=== PATIENT | male | born 1965 | race Caucasian/White ===

== ENCOUNTER 2017-07-24 20:07 | Emergency (ER) | payer MEDICARE, MEDICAID ==
[2017-07-24] MEDS ORDERED: SODIUM CHLORIDE 0.9% 1000ML 1,000 ML IVS ONE (20:18)
[2017-07-24] MEDS ORDERED: IBUPROFEN 200 MG TAB PO ONE (20:18)
[2017-07-24 20:59] VITALS: O2SAT 99
--- NOTE | 2017-07-24 21:42 | RAD ---
EXAM: Chest,1 View CLINICAL INDICATION: 51-year-old male with fever. TECHNIQUE: Single view, AP portable chest was obtained. COMPARISON: Single view chest 07/06/2017. FINDINGS: Stable prominent cardiac and mediastinal silhouette. Heart size is top normal. Tracheostomy tube terminates at the level of the thoracic inlet. Elevation of the RIGHT hemidiaphragm. Low lung volumes with bilateral basilar hazy opacification. No gross pneumothoraces or large pleural effusion, however small pleural effusion cannot be excluded. The visualized bones are within normal limits. IMPRESSION: Low lung volumes with bilateral basilar hazy opacification, may represent subsegmental atelectasis versus consolidation. Upright PA and lateral radiography may be considered when the patient is clinically able. Please correlate with patient clinical findings and follow-up for resolution. Electronically signed by: Raiza Hardy MD 07/24/2017 9:41 PM [facility]
[2017-07-24] MEDS ORDERED: PIPERACILLIN/TAZOBACTAM 3.375 GM in SODIUM CHLORIDE 0.9% 100ML 100 ML IVPB ONE (21:55)
[2017-07-24] MEDS ORDERED: FLUCONAZOLE 150 MG TAB GT ONE (21:55)
[2017-07-24] MEDS ORDERED: CIPROFLOXACIN 500 MG TAB GT ONE (21:55)
[2017-07-24] MEDS ORDERED: SODIUM CHLORIDE 0.9% 100ML 100 ML IVPB ONE (21:57)
[2017-07-24] MEDS ORDERED: PIPERACILLIN/TAZOBACTAM 3.375 GM VIAL IVPB ONE (21:57)
--- NOTE | 2017-07-24 23:25 | ED.PDOC ---
History of Present Illness - General Chief Complaint: Fever Stated Complaint: low bp, elevated temps Time Seen by Provider: 07/24/17 20:16 Source: patient, family Exam Limitations: clinical condition - History of Present Illness Initial Comments: the patient is a 51-year-old male presenting to the emergency room from [facility]. The patient is a long-term ventilator patient with a tracheostomy as well as a G-tube and an indwelling Hernandez catheter. 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 His is present to give additional information. apparently the patient started running a fever later this afternoon. There was some concern of his blood pressure being in the 90s over 50s however his reports that that is what his blood pressure always is. There were no real focal symptoms he was just mainly not feeling good. No change in requirement for ventilator settings. No change in mental status. No new pain anywhere other than just not feeling good. The patient has a functional quadriplegic. Timing/Duration: unsure Severity: moderate Improving Factors: nothing Worsening Factors: nothing Associated Symptoms: malaise Allergies/Adverse Reactions: Allergies Albuterol Allergy (Verified 12/09/15 22:32) Lidocaine Allergy (Verified 12/09/15 22:32) Home Medications: Ambulatory Orders Acetaminophen [Acetaminophen ER] 650 mg PO 12/09/15 Alprazolam [Alprazolam ER] 0.5 mg PO 12/09/15 Bisacodyl 10 mg PA 12/09/15 Cyanocobalamin [Vitamin B-12 Cr] 1,000 mcg PO 12/09/15 Escitalopram Oxalate 10 mg PO 12/09/15 Ferrous Sulfate [Ferosul] 220 mg PO 12/09/15 Folic Acid 1 mg PO 12/09/15 Gabapentin 250 mg PO 12/09/15 Glycopyrrolate 2 mg PO 12/09/15 Guaifenesin 100 mg PO 12/09/15 Ibuprofen [Motrin] 200 mg PO 12/09/15 Ipratropium [place] Nebs [Atrovent NEBS] 0.5 mg INH 12/09/15 LORazepam [Ativan] 0.5 mg PO 12/09/15 Lidocaine 1% Pf 12/09/15 Magnesium Hydroxide [Milk Of Magnesia] 30 ml PO 12/09/15 Metoprolol Tartrate 25 mg PO 12/09/15 Ondansetron Odt [Zofran Odt] 12/09/15 Polyethylene Glycol 3350 [Miralax] 12/09/15 Potassium Chloride [Klor-Con] 20 meq PO 12/09/15 Riluzole 50 mg PO 12/09/15 Scopolamine Patch 1.5MG [Transderm-Scop Patch] 12/09/15 Simethicone 80 mg PO 12/09/15 Tramadol HCl 50 mg PO 12/09/15 Uti-Stat 12/09/15 Vitamin C 12/09/15 fentaNYL PATCH 50 MCG/HR [Duragesic Patch 50 MCG/HR] 50 mcg TD 12/09/15 Amoxicillin & Pot Clavulanate [Augmentin Tab] 875 mg PO BID #14 tab 07/24/17 Ciprofloxacin [Cipro] 500 mg PO BID #14 tab 07/24/17 Review of Systems - Review of Systems Constitutional: States: fever, malaise, weakness EENTM: States: nose congestion - chronic Respiratory: States: no symptoms reported Cardiology: States: no symptoms reported Gastrointestinal/Abdominal: States: no symptoms reported Genitourinary: States: no symptoms reported Musculoskeletal: States: other - generalized body aches Skin: States: no symptoms reported Neurological: States: no symptoms reported Endocrine: States: excessive sweating All other Systems: No Change from Baseline Past Medical History (General) - Patient Medical History Hx Seizures: No Hx Stroke: No Hx Dementia: No Hx Asthma: No 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 Hx Cardiac Disorders: No Hx Congestive Heart Failure: No Hx Pacemaker: No Hx Hypertension: Yes Hx Thyroid Disease: No Hx Diabetes: No Hx Gastroesophageal Reflux: Yes Hx Renal Disease: No Hx Cancer: No Hx of HIV: No Hx Hepatitis C: No Hx MRSA: Yes - Sputum 2013 MRSA Source:: Sputum Surgical History: appendectomy, other - Vaccination History Hx Tetanus, Diphtheria Vaccination: No Hx Influenza Vaccination: No Hx Pneumococcal Vaccination: No - Social History Hx Tobacco Use: No Hx Chewing Tobacco Use: No Hx Alcohol Use: No Hx Substance Use: No Hx Substance Use Treatment: No Hx Depression: Yes Hx Physical Abuse: No Hx Emotional Abuse: No Hx Suspected Abuse: No - Activities of Daily Living [facility]isted Living (if applicable):: [facility] - Female History Patient : No Family Medical History - Family History Mother Family History: No Known Physical Exam - Physical Exam General Appearance: Alert, No apparent distress, Other - he is mildly diaphoretic with fever. He communicates well with his by mouthing Eye Exam: bilateral normal Ears, Nose, Throat: other - mucous membranes are somewhat dry. Nares are red with clear rhinorrhea. Neck: full range of motion - passive. Tracheostomy is in place. Respiratory: normal breath sounds, rales - ild rales at bases which is consistent with his chronic ventilator state. Good air movement. Cardiovascular/Chest: normal peripheral pulses, regular rate, rhythm, no edema Peripheral Pulses: radial,right: 2+, radial,left: 2+, dorsalis pedis,right: 2+, dorsalis pedis,left: 2+ Gastrointestinal/Abdominal: non tender, soft, other - abdomen is mildly distended. Rectal Exam: deferred Extremity: normal range of motion - passive, no calf tenderness, pedal edema - mild chronic edema to his extremities from nonuse, other - he patient is a functional quadriplegic. Neurologic: alert, normal mood/affect - ccording to his Skin Exam: diaphoresis - initially until the fever broke Comments: Vital Signs - 24 hr 07/24/17 07/24/17 07/24/17 20:10 20:54 21:08 Temperature 100.2 F H 98.5 F Pulse Rate Pulse Rate [ 111 H 51 L right] Respiratory 14 12 Rate Respiratory 16 Rate [Volume Control Data] Blood Pressure 115/69 106/62 [right] O2 Sat by Pulse 99 99 Oximetry 07/24/17 07/24/17 07/24/17 21:40 21:51 22:00 Temperature 98.5 F Pulse Rate 49 L 49 L 49 L Pulse Rate [ 49 L 50 L 59 L right] Respiratory 12 12 12 Rate Respiratory Rate [Volume Control Data] Blood Pressure 99/63 99/65 99/63 [right] O2 Sat by Pulse 99 99 99 Oximetry 07/24/17 07/24/17 22:10 23:23 Temperature 98.8 F Pulse Rate 77 Pulse Rate [ 77 right] Respiratory 12 Rate Respiratory 16 Rate [Volume Control Data] Blood Pressure 96/72 [right] O2 Sat by Pulse 99 Oximetry mild tachycardia coincides with the fever. Mild bradycardia coincides withhis afebrile state and relaxation. Progress - Progress Progress: 07/24/17 23:29 the patient is a 51-year-old male presenting to the emergency room with a fever from an uncertain source. He does appear to have at least a small urinary tract infection which is not surprising given his indwelling Hernandez catheter. The patient was given 1 dose of Diflucan from his G-tube and the patient is going to be started on broad-spectrum antibiotic coverage for the bacterial urinary tract infection as well as for the possibility of a very early mild pulmonary infection. He is not requiring any changes in his ventilator settings. His blood pressures are normal for him according to his . He and his are in agreement to receiving a dose of IV antibiotics here and being placed on oral antibiotics by his G-tube at the group home and following along. There does not appear to be any evidence of sepsis at this time. Lab work is reassuring compared to his lab work from 2 years ago. The patient did receive a liter of IV fluids for mild dehydration. Consideration could be given to increasing his free fluid intake for the next couple of days if he is having a fever. Additionally Tylenol and Motrin should be used to keep the fever down as it does make a very significant difference in his tachycardia and how he feels. Blood culture has been done. Urine culture is being set up. The patient received a dose of Zosyn here per IV and a dose of ciprofloxacin by his G-tube. He'll be placed on ciprofloxacin 500 mg twice daily for 7 days by G-tube and Augmentin 875 mg twice daily for 7 days by G- tube. ER warnings were given for any significant deterioration. has agreed to this plan. 07/24/17 23:34 - Results/Orders Results/Orders: Laboratory Tests 07/24/17 07/24/17 07/24/17 20:30 20:30 20:30 WBC 14.7 H RBC 3.59 L Hgb 11.2 L Hct 33.3 L MCV 92.9 MCH 31.1 H MCHC 33.5 RDW 15.0 H Plt Count 235 MPV 7.2 L Absolute Neuts (auto) 12.00 H Absolute Lymphs (auto) 1.40 Absolute Monos (auto) 1.30 H Absolute Eos (auto) 0.00 Absolute Basos (auto) 0.00 Neutrophils % 81.5 H Lymphocytes % 9.3 L Monocytes % 8.8 Eosinophils % 0.1 L Basophils % 0.3 Sodium 134 L Potassium 4.1 Chloride 104 Carbon Dioxide 19 L Anion Gap 15.1 BUN 22 H Creatinine < 0.40 L BUN/Creatinine Ratio 55.0 H Random Glucose 124 H Serum Osmolality 273.0 L Lactic Acid 1.3 Calcium 8.8 Total Bilirubin 1.5 H AST 17 ALT 20 Alkaline Phosphatase 173 H Creatine Kinase 26 L CK-MB (CK-2) 1.8 CK-MB (CK-2) % Not Reportable Troponin I < 0.02 B-Natriuretic Peptide 40.8 Serum Total Protein 8.2 Albumin 3.6 Globulin 4.6 H Albumin/Globulin Ratio 0.8 L Urine Color Urine Appearance Urine pH Ur Specific [place] Urine Protein Urine Glucose (UA) Urine Ketones Urine Blood Urine Nitrite Urine Bilirubin Urine Urobilinogen Ur Leukocyte Esterase Urine RBC Urine WBC Ur Epithelial Cells Triple Phos Crystals Amorphous Sediment Urine Bacteria 07/24/17 20:35 WBC RBC Hgb Hct MCV MCH MCHC RDW Plt Count MPV Absolute Neuts (auto) Absolute Lymphs (auto) Absolute Monos (auto) Absolute Eos (auto) Absolute Basos (auto) Neutrophils % Lymphocytes % Monocytes % Eosinophils % Basophils % Sodium Potassium Chloride Carbon Dioxide Anion Gap BUN Creatinine BUN/Creatinine Ratio Random Glucose Serum Osmolality Lactic Acid Calcium Total Bilirubin AST ALT Alkaline Phosphatase Creatine Kinase CK-MB (CK-2) CK-MB (CK-2) % Troponin I B-Natriuretic Peptide Serum Total Protein Albumin Globulin Albumin/Globulin Ratio Urine Color Dk yellow Urine Appearance Cloudy Urine pH >= 9.0 H* Ur Specific [place] 1.015 Urine Protein >=300 H Urine Glucose (UA) Negative Urine Ketones Negative Urine Blood Small H Urine Nitrite Negative Urine Bilirubin Negative Urine Urobilinogen 0.2 Ur Leukocyte Esterase Moderate H Urine RBC 20-30 H Urine WBC 20-30 H Ur Epithelial Cells 0 Triple Phos Crystals 3+ Amorphous Sediment 3+ Urine Bacteria 4+ H nfluenza test is negative. Chest x-ray shows mild patchy bilateral basilar infiltrates versus atelectasis. Departure - Departure Clinical Impression: Ventilator dependence UTI (urinary tract infection) due to urinary indwelling catheter Qualifiers: Indwelling urinary catheter type: indwelling urethral catheter Encounter type: initial encounter Qualified Code(s): T83.511A - Infection and inflammatory reaction due to indwelling urethral catheter, initial encounter; N39.0 - Urinary tract infection, site not specified Disposition: Discharge to SNF Condition: Fair Departure Forms: ED Discharge - Pt. Copy, Patient Portal Self Enrollment Instructions: Urinary Tract Infection Diet: other Activity: increase activity as tolerated Referrals: CARLO GOODWIN [Primary Care Provider] - 1-2 Days Prescriptions: Amoxicillin & Pot Clavulanate [Augmentin Tab] 875 mg PO BID #14 tab Ciprofloxacin [Cipro] 500 mg PO BID #14 tab Home Medications: Ambulatory Orders Acetaminophen [Acetaminophen ER] 650 mg PO 12/09/15 Alprazolam [Alprazolam ER] 0.5 mg PO 12/09/15 Bisacodyl 10 mg PA 12/09/15 Cyanocobalamin [Vitamin B-12 Cr] 1,000 mcg PO 12/09/15 Escitalopram Oxalate 10 mg PO 12/09/15 Ferrous Sulfate [Ferosul] 220 mg PO 12/09/15 Folic Acid 1 mg PO 12/09/15 Gabapentin 250 mg PO 12/09/15 Glycopyrrolate 2 mg PO 12/09/15 Guaifenesin 100 mg PO 12/09/15 Ibuprofen [Motrin] 200 mg PO 12/09/15 Ipratropium [place] Nebs [Atrovent NEBS] 0.5 mg INH 12/09/15 LORazepam [Ativan] 0.5 mg PO 12/09/15 Lidocaine 1% Pf 12/09/15 Magnesium Hydroxide [Milk Of Magnesia] 30 ml PO 12/09/15 Metoprolol Tartrate 25 mg PO 12/09/15 Ondansetron Odt [Zofran Odt] 12/09/15 Polyethylene Glycol 3350 [Miralax] 12/09/15 Potassium Chloride [Klor-Con] 20 meq PO 12/09/15 Riluzole 50 mg PO 12/09/15 Scopolamine Patch 1.5MG [Transderm-Scop Patch] 12/09/15 Simethicone 80 mg PO 12/09/15 Tramadol HCl 50 mg PO 12/09/15 Uti-Stat 12/09/15 Vitamin C 12/09/15 fentaNYL PATCH 50 MCG/HR [Duragesic Patch 50 MCG/HR] 50 mcg TD 12/09/15 Amoxicillin & Pot Clavulanate [Augmentin Tab] 875 mg PO BID #14 tab 07/24/17 Ciprofloxacin [Cipro] 500 mg PO BID #14 tab 07/24/17 Additional Instructions: the patient is a 51-year-old male presenting to the emergency room with a fever from an uncertain source. He does appear to have at least a small urinary tract infection which is not surprising given his indwelling Hernandez catheter. The patient was given 1 dose of Diflucan from his G-tube and the patient is going to be started on broad-spectrum antibiotic coverage for the bacterial urinary tract infection as well as for the possibility of a very early mild pulmonary infection. He is not requiring any changes in his ventilator settings. His blood pressures are normal for him according to his . He and his are in agreement to receiving a dose of IV antibiotics here and being placed on oral antibiotics by his G-tube at the group home and following along. There does not appear to be any evidence of sepsis at this time. Lab work is reassuring compared to his lab work from 2 years ago. The patient did receive a liter of IV fluids for mild dehydration. Consideration could be given to increasing his free fluid intake for the next couple of days if he is having a fever. Additionally Tylenol and Motrin should be used to keep the fever down as it does make a very significant difference in his tachycardia and how he feels. Blood culture has been done. Urine culture is being set up. The patient received a dose of Zosyn here per IV and a dose of ciprofloxacin by his G-tube. He'll be placed on ciprofloxacin 500 mg twice daily for 7 days by G-tube and Augmentin 875 mg twice daily for 7 days by G- tube. ER warnings were given for any significant deterioration. has agreed to this plan.
[2017-07-25 00:05] VITALS: BP 106/69; TEMP 98.5
== END 2017-07-25 00:05 ==
LOC: ER 20:07
DX: T83.511A Infection and inflammatory reaction due to indwelling urethral catheter, initial encounter (principal); N39.0 Urinary tract infection, site not specified; J44.9 Chronic obstructive pulmonary disease, unspecified; I10 Essential (primary) hypertension; K21.9 Gastro-esophageal reflux disease without esophagitis; Z93.0 Tracheostomy status; Z93.1 Gastrostomy status; Z79.899 Other long term (current) drug therapy; Z88.8 Allergy status to other drugs, medicaments and biological substances
CPT/HCPCS: 36415; 71010; 80053; 81001; 82550; 82553; 83605; 83880; 84484; 85025; 87040; 87086; 87502; 94002; J2543; J7030; J7050

== ENCOUNTER 2017-07-29 14:33 | Emergency (ER) | payer MEDICARE, MEDICAID ==
--- NOTE | 2017-07-29 15:16 | ED.PDOC ---
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 - History of Present Illness Initial Comments: Umberto Galicia 51 y/o male resident at [facility] ventilator dependent from ALS brought by EMS due to fever and abdominal distention since yesterday.Had no bowel movement for the last 2 days was seen here ER 07/24/17 with dx of uti given zosyn and was sent home with rx for antibiotics Timing/Duration: other - see hpi Severity: moderate Improving Factors: nothing Worsening Factors: nothing Associated Symptoms: other - see hpi Allergies/Adverse Reactions: Allergies Albuterol Allergy (Verified 12/09/15 22:32) Lidocaine Allergy (Verified 12/09/15 22:32) Home Medications: Ambulatory Orders Acetaminophen [Acetaminophen ER] 650 mg PO 12/09/15 Alprazolam [Alprazolam ER] 0.5 mg PO 12/09/15 Bisacodyl 10 mg SC 12/09/15 Cyanocobalamin [Vitamin B-12 Cr] 1,000 mcg PO 12/09/15 Escitalopram Oxalate 10 mg PO 12/09/15 Ferrous Sulfate [Ferosul] 220 mg PO 12/09/15 Folic Acid 1 mg PO 12/09/15 Gabapentin 250 mg PO 12/09/15 Glycopyrrolate 2 mg PO 12/09/15 Guaifenesin 100 mg PO 12/09/15 Ibuprofen [Motrin] 200 mg PO 12/09/15 Ipratropium [place] Nebs [Atrovent NEBS] 0.5 mg INH 12/09/15 LORazepam [Ativan] 0.5 mg PO 12/09/15 Lidocaine 1% Pf 12/09/15 Magnesium Hydroxide [Milk Of Magnesia] 30 ml PO 12/09/15 Metoprolol Tartrate 25 mg PO 12/09/15 Ondansetron Odt [Zofran Odt] 12/09/15 Polyethylene Glycol 3350 [Miralax] 12/09/15 Potassium Chloride [Klor-Con] 20 meq PO 12/09/15 Riluzole 50 mg PO 12/09/15 Scopolamine Patch 1.5MG [Transderm-Scop Patch] 12/09/15 Simethicone 80 mg PO 12/09/15 Tramadol HCl 50 mg PO 12/09/15 Uti-Stat 12/09/15 Vitamin C 12/09/15 fentaNYL PATCH 50 MCG/HR [Duragesic Patch 50 MCG/HR] 50 mcg TD 12/09/15 Amoxicillin & Pot Clavulanate [Augmentin Tab] 875 mg PO BID #14 tab 07/24/17 Ciprofloxacin [Cipro] 500 mg PO BID #14 tab 07/24/17 Review of Systems - Review of Systems Constitutional: States: fever EENTM: States: no symptoms reported Respiratory: States: see HPI Cardiology: States: no symptoms reported Gastrointestinal/Abdominal: States: see HPI Genitourinary: States: see HPI, other - moe cath chronic indwelling Musculoskeletal: States: see HPI Skin: States: no symptoms reported Neurological: States: see HPI Past Medical History (General) - Patient Medical History Hx Seizures: No Hx Stroke: No Hx Dementia: No Hx Asthma: No 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 Hx Cardiac Disorders: No Hx Congestive Heart Failure: No Hx Pacemaker: No Hx Hypertension: Yes Hx Thyroid Disease: No Hx Diabetes: No Hx Gastroesophageal Reflux: Yes Hx Renal Disease: No Hx Cancer: No Hx of HIV: No Hx Hepatitis C: No Hx MRSA: Yes - Sputum 2013 Hx Other PMH: Yes - ALS-2013 MRSA Source:: Sputum Surgical History: appendectomy - Vaccination History Hx Tetanus, Diphtheria Vaccination: No Hx Influenza Vaccination: No Hx Pneumococcal Vaccination: No - Social History Hx Tobacco Use: No Hx Chewing Tobacco Use: No Hx Alcohol Use: No Hx Substance Use: No Hx Substance Use Treatment: No Hx Depression: Yes Hx Physical Abuse: No Hx Emotional Abuse: No Hx Suspected Abuse: No - Activities of Daily Living Skilled Nursing/Assisted Living (if applicable):: [facility] - Female History Patient : No Family Medical History - Family History Mother Family History: No Known Physical Exam - Physical Exam General Appearance: Alert, No apparent distress Eye Exam: bilateral normal Ears, Nose, Throat: hearing grossly normal, normal pharynx Neck: non-tender, supple, other - patent tracheostomy Respiratory: chest non-tender, other - coarse breath sounds Cardiovascular/Chest: normal peripheral pulses, regular rate, rhythm, no murmur Peripheral Pulses: radial,right: 2+, radial,left: 2+ Gastrointestinal/Abdominal: no organomegaly, distended, other - peg patent Back Exam: no vertebral tenderness Extremity: no pedal edema Neurologic: alert, motor weakness - flaccid paralysys upper/lower extremities Skin Exam: normal color, warm/dry Progress - Progress Progress: 07/29/17 19:49 Last Vital Signs Temp 100 F H 07/29/17 14:49 Pulse 97 H 07/29/17 16:31 Resp 18 07/29/17 16:31 BP 120/75 07/29/17 16:31 Pulse Ox 99 07/29/17 16:31 Laboratory Tests 07/29/17 07/29/17 07/29/17 15:17 15:17 15:17 WBC 12.7 H RBC 3.22 L Hgb 9.9 L Hct 29.8 L MCV 92.5 MCH 30.7 MCHC 33.3 RDW 15.1 H Plt Count 260 MPV 6.8 L Absolute Neuts (auto) 10.00 H Absolute Lymphs (auto) 1.00 Absolute Monos (auto) 1.60 H Absolute Eos (auto) 0.10 Absolute Basos (auto) 0.00 Neutrophils % 78.3 H Lymphocytes % 8.2 L Monocytes % 12.6 H Eosinophils % 0.5 L Basophils % 0.4 Sodium 136 Potassium 4.5 Chloride 104 Carbon Dioxide 23 Anion Gap 13.5 BUN 12 Creatinine < 0.40 L BUN/Creatinine Ratio 30.0 H Random Glucose 139 H Serum Osmolality 274.0 L Lactic Acid 0.6 Calcium 8.8 Total Bilirubin 1.5 H AST 17 ALT 25 Alkaline Phosphatase 189 H Serum Total Protein 8.2 Albumin 3.3 Globulin 4.9 H Albumin/Globulin Ratio 0.7 L Lipase 18 L Urine Color Urine Appearance Urine pH Ur Specific [place] Urine Protein Urine Glucose (UA) Urine Ketones Urine Blood Urine Nitrite Urine Bilirubin Urine Urobilinogen Ur Leukocyte Esterase Urine RBC Urine WBC Ur Epithelial Cells Urine Bacteria Urine Mucus 07/29/17 15:35 WBC RBC Hgb Hct MCV MCH MCHC RDW Plt Count MPV Absolute Neuts (auto) Absolute Lymphs (auto) Absolute Monos (auto) Absolute Eos (auto) Absolute Basos (auto) Neutrophils % Lymphocytes % Monocytes % Eosinophils % Basophils % Sodium Potassium Chloride Carbon Dioxide Anion Gap BUN Creatinine BUN/Creatinine Ratio Random Glucose Serum Osmolality Lactic Acid Calcium Total Bilirubin AST ALT Alkaline Phosphatase Serum Total Protein Albumin Globulin Albumin/Globulin Ratio Lipase Urine Color Yellow Urine Appearance Sl cloudy Urine pH 7.0 Ur Specific [place] 1.025 Urine Protein 100 H Urine Glucose (UA) Negative Urine Ketones Negative Urine Blood Negative Urine Nitrite Negative Urine Bilirubin Negative Urine Urobilinogen 0.2 Ur Leukocyte Esterase Small H Urine RBC 1-3 Urine WBC Tntc H Ur Epithelial Cells 0 Urine Bacteria 3+ H Urine Mucus Small - EKG/XRAY/CT XRAY: chest - consolidation left lower lobe CT Ordered: Yes - abd/p-no bowel obstruction inflammation of the left hepatic flexure Departure - Departure Clinical Impression: Abdominal distension (gaseous), Ventilator dependent, ALS (amyotrophic lateral sclerosis) UTI (urinary tract infection) due to urinary indwelling Moe catheter Qualifiers: Indwelling urinary catheter type: indwelling urethral catheter Encounter type: initial encounter Qualified Code(s): T83.511A - Infection and inflammatory reaction due to indwelling urethral catheter, initial encounter; N39.0 - Urinary tract infection, site not specified Time of Disposition: 19:56 Disposition: Discharge to SNF Condition: Poor Departure Forms: ED Discharge - Pt. Copy, Patient Portal Self Enrollment Referrals: CARLO GOODWIN [Primary Care Provider] - 1-2 Weeks Home Medications: Ambulatory Orders Acetaminophen [Acetaminophen ER] 650 mg PO 12/09/15 Alprazolam [Alprazolam ER] 0.5 mg PO 12/09/15 Bisacodyl 10 mg SC 12/09/15 Cyanocobalamin [Vitamin B-12 Cr] 1,000 mcg PO 12/09/15 Escitalopram Oxalate 10 mg PO 12/09/15 Ferrous Sulfate [Ferosul] 220 mg PO 12/09/15 Folic Acid 1 mg PO 12/09/15 Gabapentin 250 mg PO 12/09/15 Glycopyrrolate 2 mg PO 12/09/15 Guaifenesin 100 mg PO 12/09/15 Ibuprofen [Motrin] 200 mg PO 12/09/15 Ipratropium [place] Nebs [Atrovent NEBS] 0.5 mg INH 12/09/15 LORazepam [Ativan] 0.5 mg PO 12/09/15 Lidocaine 1% Pf 12/09/15 Magnesium Hydroxide [Milk Of Magnesia] 30 ml PO 12/09/15 Metoprolol Tartrate 25 mg PO 12/09/15 Ondansetron Odt [Zofran Odt] 12/09/15 Polyethylene Glycol 3350 [Miralax] 12/09/15 Potassium Chloride [Klor-Con] 20 meq PO 12/09/15 Riluzole 50 mg PO 12/09/15 Scopolamine Patch 1.5MG [Transderm-Scop Patch] 12/09/15 Simethicone 80 mg PO 12/09/15 Tramadol HCl 50 mg PO 12/09/15 Uti-Stat 12/09/15 Vitamin C 12/09/15 fentaNYL PATCH 50 MCG/HR [Duragesic Patch 50 MCG/HR] 50 mcg TD 12/09/15 Amoxicillin & Pot Clavulanate [Augmentin Tab] 875 mg PO BID #14 tab 07/24/17 Ciprofloxacin [Cipro] 500 mg PO BID #14 tab 07/24/17 Additional Instructions: CONTINUE WITH FORTAZ PRESCRIBED;May give Dulcolax suppositories/rectum and dulcolax tablets and citrucel by PEG for constipation IN AM;Continue with rest of medications
[2017-07-29] MEDS ORDERED: LACTATED RINGERS 1,000 ML IVS ONE (15:20)
[2017-07-29 16:32] VITALS: O2SAT 99
--- NOTE | 2017-07-29 16:36 | RAD ---
EXAM DESCRIPTION: Abdomen 1 View CLINICAL HISTORY: fever COMPARISON: None FINDINGS: Supine and upright images of the abdomen were submitted. There is moderate dilatation of air-filled loops of bowel in the midabdomen. No definite transition point is seen. Percutaneous gastrostomy is likely in the gastric lumen. Portions of the abdomen are not imaged and the study is not sensitive for free air. IMPRESSION: Findings could reflect ileus or early or partial obstruction and follow-up is recommended. Electronically signed by: Nestor Contreras 07/29/2017 4:35 PM [facility]
--- NOTE | 2017-07-29 16:37 | RAD ---
EXAM DESCRIPTION: Chest,1 View CLINICAL HISTORY: fever COMPARISON: 07/24/2017 FINDINGS: There is consolidation at the left lung base. Lung volumes are low. Cardiac silhouette is stable. There is no other focal parenchymal or pleural disease. Visualized osseous structures are within normal limits. IMPRESSION: Left lung base consolidation. Electronically signed by: Nestor Contreras 07/29/2017 4:36 PM NURSING ASSOC
[2017-07-29] MEDS ORDERED: PIPERACILLIN/TAZOBACTAM 3.375 GM VIAL IVPB ONE (17:48)
[2017-07-29] MEDS ORDERED: SODIUM CHLORIDE 0.9% 100ML 100 ML IVPB ONE (17:49)
[2017-07-29] MEDS: PIPERACILLIN/TAZOBACTAM 3.375 GM in SODIUM CHLORIDE 0.9% 100ML 100 ML IVPB ONE ×2 (17:56→19:05)
--- NOTE | 2017-07-29 19:24 | CT ---
EXAM DESCRIPTION: Abdomen/Pelvis w/Contrast CLINICAL HISTORY: abdominal distention COMPARISON: None Available TECHNIQUE: Contiguous axial images of the abdomen and pelvis were obtained after the administration of intravenous contrast followed by reconstruction images.This exam was performed according to our departmental dose-optimization program, which includes automated exposure control, adjustment of the mA and/or kV according to patient size and/or use of iterative reconstruction technique. FINDINGS: There is consolidation at both lung bases. Small bilateral pleural effusions. There is soft tissue stranding of the mesentery in the right lateral abdomen and mild thickening of the adjacent wall of the hepatic flexure. There is also a small amount of fluid in the abdomen and pelvis. Hernandez catheter is in the urinary bladder which is collapsed. There is contrast in the urinary bladder. There is left renal atrophy. Percutaneous gastrostomy is present in the gastric lumen. There is mild thickening of the wall of the gallbladder with no pericholecystic fluid or calcified gallstones seen. There is no hydronephrosis. Adrenal glands are within normal limits. Aorta is normal in caliber and tapering. No free air. No bowel obstruction. IMPRESSION: Findings suggest inflammation of the hepatic flexure of the colon or possibly of the gallbladder wall. Bilateral consolidations in the lungs. See additional findings above. Electronically signed by: Nestor Contreras 07/29/2017 7:23 PM SCHOOL TREASURER
[2017-07-29 20:51] VITALS: BP 113/78; TEMP 98.1
== END 2017-07-29 20:51 ==
LOC: ER 14:33
DX: T83.518A Infection and inflammatory reaction due to other urinary catheter, initial encounter (principal); N39.0 Urinary tract infection, site not specified; R14.0 Abdominal distension (gaseous); G12.21 Amyotrophic lateral sclerosis; Z99.11 Dependence on respirator [ventilator] status; J44.9 Chronic obstructive pulmonary disease, unspecified; I10 Essential (primary) hypertension; K21.9 Gastro-esophageal reflux disease without esophagitis; Z79.899 Other long term (current) drug therapy
CPT/HCPCS: 71010; 74000; 74177; 80053; 81001; 83605; 83690; 85025; 87086; 87088; 87186; 87502; 94002; 94770; J2543; J7050; J7120

== ENCOUNTER 2017-10-01 12:35 | Emergency (ER) | payer MEDICARE, OTHER ==
[2017-10-01] MEDS ORDERED: SODIUM CHLORIDE 0.9% 1000ML 1,000 ML IVS ONE ×4 (12:57→15:30)
--- NOTE | 2017-10-01 13:22 | RAD ---
EXAM DESCRIPTION: Portable Chest CLINICAL HISTORY: Vent Pt, Fever COMPARISON: July 29 2017 TECHNIQUE: Single frontal view of chest FINDINGS: Stable in satisfactory position of tracheostomy catheter. Right internal jugular catheter now terminates in distal SVC. Lungs are suboptimally aerated bilaterally. Slight improvement of interstitial opacities previously seen in left lower lung. Now increased atelectasis versus early airspace disease over the right lung base. No pneumothorax on either side. Cardiac mediastinal contours are unremarkable in appearance. IMPRESSION: Changing extent of basilar nonspecific interstitial opacities bilaterally. Electronically signed by: Burak Cosby MD 10/01/2017 1:21 PM GROUND EQUIPMENT MECHANIC
[2017-10-01] MEDS ORDERED: fentaNYL CITRATE INJ 50 MCG/ML AMP IV ONE (14:23)
[2017-10-01] MEDS ORDERED: ONDANSETRON INJ 4 MG/2 ML VIAL IV ONE (14:24)
--- NOTE | 2017-10-01 14:30 | ED.PDOC ---
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 - History of Present Illness Timing/Duration: 24 hours Severity: moderate Improving Factors: nothing Worsening Factors: nothing Associated Symptoms: denies symptoms Allergies/Adverse Reactions: Allergies Albuterol Allergy (Verified 12/09/15 22:32) Lidocaine Allergy (Verified 12/09/15 22:32) Home Medications: Ambulatory Orders Alprazolam [Alprazolam ER] 0.5 mg GT Q6H PRN 12/09/[address] DAILY PRN 12/09/15 Cyanocobalamin [Vitamin B-12 Cr] 1,000 mcg GT DAILY 12/09/15 Escitalopram Oxalate 10 mg GT DAILY 12/09/15 Ferrous Sulfate [Ferosul] 220 mg GT DAILY 12/09/15 Folic Acid 1 mg PO BID 12/09/15 Gabapentin 250 mg GT TID 12/09/15 Guaifenesin 100 mg GT Q4H 12/09/15 Ibuprofen [Motrin] 200 mg GT Q8H PRN 12/09/15 LORazepam [Ativan] 0.5 mg GT Q6H PRN 12/09/15 Lidocaine 1% Pf [Xylocaine 1% PF] 2 ml INJ Q6H PRN 12/09/15 Polyethylene Glycol 3350 [Miralax] 17 gm GT DAILY 12/09/15 Riluzole 50 mg GT BID 12/09/15 Scopolamine Patch 1.5MG [Transderm-Scop Patch] 1 ea TD Q72H 12/09/15 Simethicone 80 mg GT QID 12/09/15 Tramadol HCl 50 mg GT Q4H 12/09/15 Uti-Stat 30 ml GT BID 12/09/15 Alum & Mag Hydrox-Simethicone [Antacid Extra Strength An] 30 ml PO TID PRN 08/06 Artificial Tear Ointment [Lacri-Lube S.o.p] 1 oin OP QID PRN 08/06/17 Atropine 1% Ophth Esperanza [(None)] 2 drop SL Q6H PRN 08/06/17 Chlorhexidine Gluconate (Mouth [Chlorhexidine Gluconate] 0.12 % MT Q4H 08/06/17 Cranberry (Vaccinium Macrocarp [Cranberry] 1,000 mg PO BID 08/06/17 Diphenhydramine HCl 25 mg GT Q6H PRN 08/06/17 Glycopyrrolate 2 mg GT Q6H 08/06/17 Ipratropium Coldiron 0.02 % INH Q2H PRN 08/06/17 Ipratropium Coldiron 2.5 ml INH BID 08/06/17 Multiple Vitamins W/ Minerals [Multivitamin Adults] 1 tab GT DAILY 08/06/17 Potassium Chloride Elixir [Kaochlor Liquid] 40 meq GT DAILY 08/06/17 Probiotic Product [Acidophilus Probiotic Ble] 4 tab GT BID 08/06/17 Psyllium Husk (Bulk) [Psyllium Husk] 15 ml GT DAILY 08/06/17 Review of Systems - Review of Systems Constitutional: States: see HPI, fever EENTM: States: see HPI Respiratory: States: see HPI Gastrointestinal/Abdominal: States: see HPI Genitourinary: States: see HPI Musculoskeletal: States: see HPI Skin: States: see HPI Neurological: States: see HPI Endocrine: States: see HPI Hematologic/Lymphatic: States: see HPI Unable to Obtain Due To: condition All other Systems: Reviewed and Negative - PER FAMILIY Past Medical History (General) - Patient Medical History Hx Seizures: No Hx Stroke: No Hx Dementia: No Hx Asthma: No 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 Hx Cardiac Disorders: No Hx Congestive Heart Failure: No Hx Pacemaker: No Hx Hypertension: Yes Hx Thyroid Disease: No Hx Diabetes: No Hx Gastroesophageal Reflux: Yes Hx Renal Disease: No Hx Cancer: No Hx of HIV: No Hx Hepatitis C: No Hx MRSA: Yes - Sputum 2013 MRSA Source:: Sputum - Vaccination History Hx Tetanus, Diphtheria Vaccination: No Hx Influenza Vaccination: No Hx Pneumococcal Vaccination: No - Social History Hx Tobacco Use: No Hx Chewing Tobacco Use: No Hx Alcohol Use: No Hx Substance Use: No Hx Substance Use Treatment: No Hx Depression: Yes Hx Physical Abuse: No Hx Emotional Abuse: No Hx Suspected Abuse: No - Female History Patient : No Family Medical History - Family History Mother Family History: No Known Living Status: Still Living Physical Exam - Physical Exam General Appearance: Frail, Ill Appearing Eye Exam: left normal Ears, Nose, Throat: other - HAS TRACH IN PLACE, NO INJECTED SCLERA Neck: other - NO CREPITUS, TRACHEA IS MIDLINE, NO JVD Respiratory: rhonchi, wheezing Cardiovascular/Chest: normal peripheral pulses, no gallop, tachycardia Gastrointestinal/Abdominal: normal bowel sounds, non tender, soft, no organomegaly, no pulsatile mass, distended, other - PEG TUBE ON LEFT ABD. NO HERNIA NOTED HAS PERCUTANEOUS DRAIN TO RIGHT ABD Extremity: other - NO DEFORMITY, IS UNABLE TO MOVE UPPER/LOWER EXT, PICC NOTED TO RT UPPER EXT. Neurologic: other - HAS ADVANCED PATRIC GERHIGS DISEASE, IS UNABLE TO MOVE ON HIS OWN AT ALL. HE IS ABLE TO BLINK IN RESPONSE TO QUESTIONS. Progress - Progress Progress: 10/01/17 14:33 A CHART REVIEW HAS BEEN PERFORMED. HERE WITH A HISTORY OF RECENT LIVER ABSCESS WITH PER DRAIN PLACEMENT WITH FEVER TODAY. IS CHRONICALLY VENT DEPENDENT FROM ADVANCE PATRIC GERHIGS DISEASE. CONCERN FOR INTRA-ABD INFECTION, UTI, BACTEREMIA, PNEUMONIA. 10/01/17 15:31 CT SHOWS PNEUMONIA, HAS LEUKOCYTOSIS AND ELEVATED HR. MEETS 2 SIRS CRITERIA. HAS ELEVATED LACTATE AT 2.2 I HAVE INITATED SALINE BOLUS AT 30ML/KG. CT SHOWS SCARING VRS SMALL RESIDUAL LIVER ABSCESS. STARTING CEFEPIME TO COVER THE VENTILATOR ASSOCIATED PNEUMONIA WITH SEVERE SEPSIS. WILL NEED TRANSFER TO OUTSIDE FACILITY HE WILL NEED ICU. I HAVE DISCUSSED WITH [facility] WITH PLAN TO TRANSFER TO [facility]. I HAVE DISCUSSED WITH THE FAMILY AND THEY AGREE WITH THIS PLAN. I WILL DISCUSS WITH [facility] TRANSFER CENTER FOR TRANSFER. 10/01/17 15:[address] NORIEGA IN TRANSFER. RECOMMENDS VANC AT 15MG/KG. - Results/Orders Results/Orders: 10/01/17 12:58 Telemetry .ONCE URINE CULTURE W/COLONY COUNT Stat EKG Stat Pulse Ox Stat URINALYSIS Stat 10/01/17 13:24 BLOOD CULTURE Stat 10/01/17 13:42 Hold Metformin x 48Hrs [id number] 10/01/17 15:28 BOLUS Sodium Chloride 0.9% 1000ML [Ns 1000 ml] 1,000 ml IVS ONCE Cefepime [Maxipime] 2 gm Sodium Chl 0.9% 50Ml Min-Bag+ [NS 50ml MINI-BAG+] 50 ml IVPB ONCE 10/01/17 15:30 BOLUS Sodium Chloride 0.9% 1000ML [Ns 1000 ml] 1,000 ml IVS ONCE BOLUS Sodium Chloride 0.9% 1000ML [Ns 1000 ml] 1,000 ml IVS ONCE 10/02/17 01:00 LACTIC ACID Q2H 10/02/17 03:00 LACTIC ACID Q2H 10/02/17 05:00 LACTIC ACID Q2H 10/02/17 07:00 LACTIC ACID Q2H 10/02/17 09:00 LACTIC ACID Q2H 10/02/17 11:00 LACTIC ACID Q2H Laboratory Results - last 24 hr 10/01/17 10/01/17 10/01/17 13:24 13:24 13:24 WBC 15.5 H RBC 4.02 L Hgb 12.3 L Hct 36.2 L MCV 90.1 MCH 30.5 MCHC 33.9 RDW 15.7 H Plt Count 229 MPV 6.7 L Absolute Neuts (auto) 13.50 H Absolute Lymphs (auto) 0.60 L Absolute Monos (auto) 1.20 H Absolute Eos (auto) 0.10 Absolute Basos (auto) 0.00 Neutrophils % 87.6 H Lymphocytes % 3.9 L Monocytes % 7.8 Eosinophils % 0.5 L Basophils % 0.2 PT 12.8 H INR 1.130 PTT (SP) 32.0 D-Dimer, Quantitative 746 H* Sodium 135 Potassium 4.4 Chloride 104 Carbon Dioxide 21 Anion Gap 14.4 BUN 21 H Creatinine < 0.40 L BUN/Creatinine Ratio 52.0 H Random Glucose 118 H Serum Osmolality 274.2 L Lactic Acid Calcium 9.4 Total Bilirubin 1.5 H AST 34 ALT 52 Alkaline Phosphatase 202 H Creatine Kinase 39 CK-MB (CK-2) 2.4 CK-MB (CK-2) % Not Reportable Troponin I 0.02 Serum Total Protein 9.0 H Albumin 4.0 Globulin 5.0 H Albumin/Globulin Ratio 0.8 L 10/01/17 13:24 WBC RBC Hgb Hct MCV MCH MCHC RDW Plt Count MPV Absolute Neuts (auto) Absolute Lymphs (auto) Absolute Monos (auto) Absolute Eos (auto) Absolute Basos (auto) Neutrophils % Lymphocytes % Monocytes % Eosinophils % Basophils % PT INR PTT (SP) D-Dimer, Quantitative Sodium Potassium Chloride Carbon Dioxide Anion Gap BUN Creatinine BUN/Creatinine Ratio Random Glucose Serum Osmolality Lactic Acid 2.2 Calcium Total Bilirubin AST ALT Alkaline Phosphatase Creatine Kinase CK-MB (CK-2) CK-MB (CK-2) % Troponin I Serum Total Protein Albumin Globulin Albumin/Globulin Ratio CT OF THE ABD SHOWS RESIDUAL SMALL ABSCESS VRS SCARRING, BUT DOES SHOW BILATERAL PNEUMONIA CXR WITH PLEURAL EFFUSIONS BILATERALLY - EKG/XRAY/CT EKG: Tachy - SINUS TACHY AT 110. LEFT AXIS DEVIATION. INTERVALS ARE NORMAL. NO ACUTE ST ABNORMALITES. IMPRESSION: SINUS TACHYCARDIA Departure - Departure Clinical Impression: Severe sepsis, Ventilator-associated bacterial pneumonia Leukocytosis Qualifiers: Leukocytosis type: other Qualified Code(s): D72.828 - Other elevated white blood cell count Time of Disposition: 15:39 Disposition: Transfer to Hospital Condition: Poor Departure Forms: ED Discharge - Pt. Copy, Patient Portal Self Enrollment Instructions: DI for Sepsis -- Adult Referrals: CARLO GOODWIN [Primary Care Provider] - 1-2 Weeks Home Medications: Ambulatory Orders Alprazolam [Alprazolam ER] 0.5 mg GT Q6H PRN 12/09/[address] DAILY PRN 12/09/15 Cyanocobalamin [Vitamin B-12 Cr] 1,000 mcg GT DAILY 12/09/15 Escitalopram Oxalate 10 mg GT DAILY 12/09/15 Ferrous Sulfate [Ferosul] 220 mg GT DAILY 12/09/15 Folic Acid 1 mg PO BID 12/09/15 Gabapentin 250 mg GT TID 12/09/15 Guaifenesin 100 mg GT Q4H 12/09/15 Ibuprofen [Motrin] 200 mg GT Q8H PRN 12/09/15 LORazepam [Ativan] 0.5 mg GT Q6H PRN 12/09/15 Lidocaine 1% Pf [Xylocaine 1% PF] 2 ml INJ Q6H PRN 12/09/15 Polyethylene Glycol 3350 [Miralax] 17 gm GT DAILY 12/09/15 Riluzole 50 mg GT BID 12/09/15 Scopolamine Patch 1.5MG [Transderm-Scop Patch] 1 ea TD Q72H 12/09/15 Simethicone 80 mg GT QID 12/09/15 Tramadol HCl 50 mg GT Q4H 12/09/15 Uti-Stat 30 ml GT BID 12/09/15 Alum & Mag Hydrox-Simethicone [Antacid Extra Strength An] 30 ml PO TID PRN 08/06 Artificial Tear Ointment [Lacri-Lube S.o.p] 1 oin OP QID PRN 08/06/17 Atropine 1% Ophth Esperanza [(None)] 2 drop SL Q6H PRN 08/06/17 Chlorhexidine Gluconate (Mouth [Chlorhexidine Gluconate] 0.12 % MT Q4H 08/06/17 Cranberry (Vaccinium Macrocarp [Cranberry] 1,000 mg PO BID 08/06/17 Diphenhydramine HCl 25 mg GT Q6H PRN 08/06/17 Glycopyrrolate 2 mg GT Q6H 08/06/17 Ipratropium Coldiron 0.02 % INH Q2H PRN 08/06/17 Ipratropium Coldiron 2.5 ml INH BID 08/06/17 Multiple Vitamins W/ Minerals [Multivitamin Adults] 1 tab GT DAILY 08/06/17 Potassium Chloride Elixir [Kaochlor Liquid] 40 meq GT DAILY 08/06/17 Probiotic Product [Acidophilus Probiotic Ble] 4 tab GT BID 08/06/17 Psyllium Husk (Bulk) [Psyllium Husk] 15 ml GT DAILY 08/06/17 Critical Care Note - Critical Care Note Total Time (mins): 50 Comments: CRITICAL CARE FINDINGS- SEVERE SEPSIS, VENTILATOR ASSOCIATED PNEUMONIA, LEUKOCYTOSIS, ELEVATED SERUM LACTATE, ADVANCED PATRIC GEHRIGS DISEASE CRITCAL CARE INDICATIONS WBC OF >15, VENTILATOR DEPENDENT WITH HEALTHCARE ASSOCIATED PNEUMONIA, ELEVATED LACTATE AT 2.2 CRITICAL CARE INTERVENTIONS- LARGE VOLUME FLUID RESUSITATION, IV CEFEPIME, IV VANC CRITICAL CARE TIME- 50 MIN WERE SPENT EITHER AT THE PATIENTS BESIDE OBTAINING THE HISTORY, EXAM, CHART REVIEW, LAB/IMAGING ORDER, LAB/IMAGING REVIEW, TIME SPENT WITH CONSULTANTS, AND DOCUMENTATION TIME. SYSTEMS AT RISK- CARDIAC, RENAL, RESPIRATORY, NEUROLOGICAL Transfer to Outside Facility - Transfer Information Accepting Provider:: DR RODRIGUEZ Accepting Facility: [facility] Reason for Transfer: ICU - SEVERE SEPSIS, VENTALATOR ASSOCIATE PNEUMONIA
--- NOTE | 2017-10-01 15:06 | CT ---
EXAM DESCRIPTION: Abdomen/Pelvis w/Contrast CLINICAL HISTORY: ABD SWELLING, FEVER, RECENT LIVER ABSCESS COMPARISON: August 06, 2017 TECHNIQUE: CT of the abdomen and Pelvis was performed with IV contrast. This exam was performed according to our departmental dose-optimization program, which includes automated exposure control, adjustment of the mA and/or kV according to patient size and/or use of iterative reconstruction technique. FINDINGS: There are trace bilateral pleural effusions with overlying atelectasis or pneumonia in the lung bases. No pneumoperitoneum, adenopathy or ascites. No abdominal aortic aneurysm. A percutaneous drain extends into the philippe hepatis, possibly within a collapsed gallbladder. There is a poorly defined 1.8 cm rounded low-density lesion in the medial segment of the left hepatic lobe anteriorly which may represent residual from a larger abscess seen on the previous CT. The liver, spleen, pancreas, adrenals and right kidney are unremarkable. Left renal atrophy is noted, stable. No dilated small bowel loops or small bowel wall thickening. A percutaneous feeding tube is present in the stomach. A Hernandez catheter is present in the bladder which is collapsed and not well evaluated. The prostate is not enlarged. There is a moderate amount stool and gas scattered throughout the colon without colonic wall thickening or pericolonic inflammation. The appendix is surgically absent. No concerning bone lesion. IMPRESSION: 1.8 cm faintly visualized rounded area of decreased attenuation anteriorly in the liver, likely representing scarring from an abscess seen on previous CT, less likely small residual abscess. Small bilateral pleural effusions with overlying atelectasis or pneumonia in the lung bases. Percutaneous drain extending into the philippe hepatis, probably into a collapsed gallbladder. No evidence of cholecystitis or biliary duct dilation. Electronically signed by: Brandon Portillo MD 10/01/2017 3:05 PM COGENERATION OPERATOR
[2017-10-01] MEDS ORDERED: CEFEPIME 2 GM in SODIUM CHL 0.9% 50ML MIN-BAG+ 50 ML IVPB ONE (15:28)
[2017-10-01] MEDS ORDERED: VANCOMYCIN HCL INJ 1,000 MG, VANCOMYCIN HCL INJ 500 MG in SODIUM CHLORIDE 0.9% 250ML 25... IVPB ONE (15:45)
[2017-10-01] MEDS ORDERED: SODIUM CHLORIDE 0.9% 250ML 250 ML ONE (16:20)
[2017-10-01] MEDS ORDERED: VANCOMYCIN HCL INJ 500 MG VIAL ONE (16:20)
[2017-10-01] MEDS ORDERED: SODIUM CHL 0.9% 50ML MIN-BAG+ 50 ML IVPB ONE (16:21)
[2017-10-01] MEDS ORDERED: CEFEPIME 2 GM VIAL IVPB ONE (16:21)
[2017-10-01] MEDS ORDERED: VANCOMYCIN HCL INJ 1,000 MG VIAL IVPB ONE (16:21)
[2017-10-01 17:53] VITALS: TEMP 102.4; O2SAT 100
[2017-10-02 09:31] VITALS: BP 122/68
== END 2017-10-01 18:00 | disposition short-term general hospital (02) ==
LOC: ER 12:35
DX: A41.9 Sepsis, unspecified organism (principal); J95.851 Ventilator associated pneumonia; B96.89 Other specified bacterial agents as the cause of diseases classified elsewhere; G12.21 Amyotrophic lateral sclerosis; J44.9 Chronic obstructive pulmonary disease, unspecified; I10 Essential (primary) hypertension; Z99.11 Dependence on respirator [ventilator] status; Z79.899 Other long term (current) drug therapy
CPT/HCPCS: 36415; 71045; 74177; 80053; 82550; 82553; 83605; 84484; 85025; 85379; 85610; 85730; 87040; 93005; 94002; J0692; J2405; J3010; J3370; J7030; J7050

== ENCOUNTER 2017-10-27 07:11 | Emergency (ER) | payer MEDICARE, OTHER ==
[2017-10-27 07:35] VITALS: TEMP 98.6
[2017-10-27] MEDS ORDERED: SODIUM CHLORIDE 0.9% (FLUSH) 10 ML SYG IV PRN (07:49)
[2017-10-27] MEDS ORDERED: SODIUM CHLORIDE 0.9% 1000ML 1,000 ML IVS ONE ×2 (07:49→07:53)
[2017-10-27] MEDS ORDERED: fentaNYL CITRATE INJ 50 MCG/ML AMP IV ONE ×2 (07:52→12:25)
[2017-10-27] MEDS ORDERED: METOCLOPRAMIDE HCL INJ 10 MG/2 ML VIAL IV ONE (07:53)
--- NOTE | 2017-10-27 07:57 | ED.PDOC ---
History of Present Illness - General Chief Complaint: GI Problem Stated Complaint: vomiting Time Seen by Provider: 10/27/17 07:49 Information Source: patient, family Exam Limitations: clinical condition, physical impairment - History of Present Illness Initial Comments: PT PRESENTS FROM [facility] WITH NAUSEA, VOMITING, AND ABD DISTENTION SINCE LAST NIGHT. 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 PT JUST RECENTLY FINISHED A COURSE OF IV VANCOMYCIN AND MERREM FOR CHOLECYSTITIS. PT WAS ALSO RECENTLY TREATED FOR FOR BILATERAL PNEUMONIA AND UTI. PT HAS BILIARY DRAIN IN PLACE, ALONG WITH PICC LINE, PEG TUBE, AND OVALLES CATHETER. ROS AND HPI LIMITED DUE TO PTS NON VERBAL STATE. Abdominal Pain Onset Location: generalized abdomen Timing/Duration: 24 hours Improving Factors: nothing Worsening Factors: nothing Associated Symptoms: nausea/vomiting Review of Systems - Review of Systems Constitutional: Denies: chills, fever EENTM: States: see HPI. Denies: nose congestion Respiratory: States: see HPI Cardiology: States: see HPI Gastrointestinal/Abdominal: States: see HPI, abdominal pain, nausea, vomiting Genitourinary: States: see HPI Musculoskeletal: States: see HPI Skin: Denies: change in color, lesions Neurological: States: see HPI Endocrine: States: see HPI Past Medical History (General) - Patient Medical History Hx Seizures: No Hx Stroke: No Hx Dementia: No Hx Asthma: No Hx of COPD: No Hx Cardiac Disorders: No Hx Congestive Heart Failure: No Hx Pacemaker: No Hx Hypertension: Yes Hx Thyroid Disease: No Hx Diabetes: No Hx Gastroesophageal Reflux: Yes Hx Renal Disease: No Hx Cancer: No Hx of HIV: No Hx Hepatitis C: No Hx MRSA: Yes - Sputum 2014 Hx Other - free text: 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 TRACH AND VENT DEPENDENT. RECENT CHOLECYSTITIS WITH LIVER ABSCESS ANEMIA MRSA Source:: Sputum Surgical History: appendectomy Other Surgeries:: CHOLECYSTOSTOMY TUBE PLACEMENT, PEG TUBE PLACEMENT - Vaccination History Hx Tetanus, Diphtheria Vaccination: No Hx Influenza Vaccination: No Hx Pneumococcal Vaccination: Yes - Social History Hx Tobacco Use: No Hx Chewing Tobacco Use: No Hx Alcohol Use: No Hx Substance Use: No Hx Substance Use Treatment: No Hx Depression: Yes Hx Physical Abuse: No Hx Emotional Abuse: No Hx Suspected Abuse: No - Activities of Daily Living Alf/Assisted Living (if applicable):: [facility] - Female History Patient : No Family Medical History - Family History Mother Family History: No Known Living Status: Still Living Physical Exam - Physical Exam General Appearance: Alert, No apparent distress, Well Developed, Well Groomed, Well Hydrated Eyes, Ears, Nose, Throat Exam: PERRL/EOMI, normal ENT inspection Neck: normal inspection, other - TRACH TUBE IN PLACE Respiratory: lungs clear, normal breath sounds, no respiratory distress Cardiovascular/Chest: regular rate, rhythm, no murmur Gastrointestinal/Abdominal: distended, other - TYMPANITIC, PEG TUBE LUQ, CHOLECYSTOSTOMY TUBE RUQ WITH 50CC BILIOUS DRAINAGE Male Genitalia: normal genitalia, other - OVALLES CATHETER IN PLACE Extremity: normal inspection, no pedal edema Neurologic: alert, other - QUADRIPLEGIC, APHASIC, RESPONDS BY BLINKING EYES AND GRIMACING Skin Exam: normal color, warm/dry Progress - Progress Progress: 10/27/17 09:37 PT RESTING COMFORTABLY, REPORTS IMPROVEMENT IN PAIN. LABS AND CXR FINDINGS DISCUSSED TO PATIENT AND SPOUSE. 10/27/17 11:33 PT CONTINUES TO REST COMFORTABLY, NO FURTHER EPISODES OF VOMITING IN THE ED. CT FINDINGS AND PLAN TO TRANSFER DISCUSSED WITH PATIENT AND SPOUSE. - Results/Orders Results/Orders: 10/27/17 07:49 IV Care:Saline Lock per Protoc QSHIFT Telemetry .ONCE Sodium Chloride 0.9% (Flush) [Saline Flush Syringe] 10 ml IV PRN PRN EKG Stat Pulse Ox Stat 10/27/17 07:52 Hold Metformin x 48Hrs [id number] 10/27/17 08:17 BLOOD CULTURE Stat 10/27/17 08:27 URINE CULTURE W/COLONY COUNT Stat 10/28/17 00:00 LACTIC ACID Q2H 10/28/17 02:00 LACTIC ACID Q2H 10/28/17 04:00 LACTIC ACID Q2H 10/28/17 06:00 LACTIC ACID Q2H Laboratory Results - last 24 hr 10/27/17 10/27/17 10/27/17 07:35 07:35 07:35 WBC 13.6 H RBC 3.13 L Hgb 9.5 L Hct 27.9 L MCV 89.1 MCH 30.3 MCHC 33.9 RDW 14.8 H Plt Count 337 MPV 6.9 L Absolute Neuts (auto) 11.30 H Absolute Lymphs (auto) 1.00 Absolute Monos (auto) 1.00 H Absolute Eos (auto) 0.20 Absolute Basos (auto) 0.10 Neutrophils % 83.1 H Lymphocytes % 7.5 L Monocytes % 7.2 Eosinophils % 1.7 Basophils % 0.5 PT 11.5 INR 1.020 PTT (SP) 24.9 L pCO2 pO2 HCO3 ABG pH ABG O2 Saturation ABG Base Excess ABG Deoxyhemoglobin Oxyhemoglobin % Carboxyhemoglobin % Methemoglobin % Sat Calc Total Hemoglobin Sodium 132 L Potassium 4.2 Chloride 100 L Carbon Dioxide 21 Anion Gap 15.2 BUN 47 H Creatinine 0.40 L BUN/Creatinine Ratio 117.5 H Random Glucose 112 H Serum Osmolality 277.5 Lactic Acid Calcium 9.4 Total Bilirubin 1.1 H AST 32 ALT 49 Alkaline Phosphatase 216 H Creatine Kinase 33 L CK-MB (CK-2) 4.8 H* CK-MB (CK-2) % Not Reportable Troponin I 0.02 Serum Total Protein 9.3 H Albumin 3.8 Globulin 5.5 H Albumin/Globulin Ratio 0.7 L Urine Color Urine Appearance Urine pH Ur Specific [place] Urine Protein Urine Glucose (UA) Urine Ketones Urine Blood Urine Nitrite Urine Bilirubin Urine Urobilinogen Ur Leukocyte Esterase Urine RBC Urine WBC Ur Epithelial Cells Urine Bacteria 10/27/17 10/27/17 10/27/17 07:35 07:49 08:27 WBC RBC Hgb Hct MCV MCH MCHC RDW Plt Count MPV Absolute Neuts (auto) Absolute Lymphs (auto) Absolute Monos (auto) Absolute Eos (auto) Absolute Basos (auto) Neutrophils % Lymphocytes % Monocytes % Eosinophils % Basophils % PT INR PTT (SP) pCO2 29 L pO2 132 H* HCO3 19.7 ABG pH 7.460 H ABG O2 Saturation 99.8 H ABG Base Excess -3.0 ABG Deoxyhemoglobin 0.2 Oxyhemoglobin % 97.7 Carboxyhemoglobin % 0.3 L Methemoglobin % Sat 1.8 H Calc Total Hemoglobin 9.3 L Sodium Potassium Chloride Carbon Dioxide Anion Gap BUN Creatinine BUN/Creatinine Ratio Random Glucose Serum Osmolality Lactic Acid 0.8 Calcium Total Bilirubin AST ALT Alkaline Phosphatase Creatine Kinase CK-MB (CK-2) CK-MB (CK-2) % Troponin I Serum Total Protein Albumin Globulin Albumin/Globulin Ratio Urine Color Yellow Urine Appearance Cloudy Urine pH 5.0 Ur Specific [place] 1.010 Urine Protein 30 Urine Glucose (UA) Negative Urine Ketones Negative Urine Blood Moderate H Urine Nitrite Positive H Urine Bilirubin Negative Urine Urobilinogen 0.2 Ur Leukocyte Esterase Large H Urine RBC Obscured by wbc's H Urine WBC Tntc H Ur Epithelial Cells 0 Urine Bacteria 4+ H - EKG/XRAY/CT EKG: Sinus - @84BPM, NL INTERVALS, NL AXIS, no ST T wave changes, Unchanged from - 10/01/17 XRAY: chest - PERSISTENT BILATERAL LL INFILTRATES CT Ordered: Yes - ILEUS WITH DILATED BOWEL AND STOMACH CT Interpretation Call Back: Yes - FINDINGS DISCUSSED WITH RADIOLOGIST Departure - Departure Clinical Impression: Paralytic ileus, ALS (amyotrophic lateral sclerosis), Ventilator-associated bacterial pneumonia, Leukocytosis, UTI (urinary tract infection) due to urinary indwelling catheter, Ventilator dependence, Abdominal distension (gaseous), Vomiting Time of Disposition: 11:40 Disposition: Transfer to Hospital Condition: Fair Departure Forms: ED Discharge - Pt. Copy, Patient Portal Self Enrollment Referrals: CARLO GOODWIN [Primary Care Provider] - 1-2 Weeks Home Medications: Ambulatory Orders Alprazolam [Alprazolam ER] 0.5 mg GT Q6H PRN 12/09/15 Bisacodyl 10 mg VT DAILY PRN 12/09/15 Cyanocobalamin [Vitamin B-12 Cr] 1,000 mcg GT DAILY 12/09/15 Escitalopram Oxalate 10 mg GT DAILY 12/09/15 Ferrous Sulfate [Ferosul] 220 mg GT DAILY 12/09/15 Folic Acid 1 mg PEG BID 12/09/15 Gabapentin 250 mg GT TID 12/09/15 Guaifenesin 100 mg GT Q4H 12/09/15 LORazepam [Ativan] 0.5 mg GT Q6H PRN 12/09/15 Lidocaine 1% Pf [Xylocaine 1% PF] 2 ml INJ Q6H PRN 12/09/15 Polyethylene Glycol 3350 [Miralax] 17 gm GT DAILY 12/09/15 Riluzole 50 mg GT BID 12/09/15 Scopolamine Patch 1.5MG [Transderm-Scop Patch] 1 ea TD Q72H 12/09/15 Simethicone 80 mg GT QID 12/09/15 Tramadol HCl 100 mg GT Q4H PRN 12/09/15 Uti-Stat 30 ml GT BID 12/09/15 Alum & Mag Hydrox-Simethicone [Antacid Extra Strength An] 30 ml PO TID PRN 08/06 Artificial Tear Ointment [Lacri-Lube S.o.p] 1 oin OP QID PRN 08/06/17 Atropine 1% Ophth [place] [(None)] 2 drop SL Q6H PRN 08/06/17 Chlorhexidine Gluconate (Mouth [Chlorhexidine Gluconate] 0.12 % MT Q4H 08/06/17 Cranberry (Vaccinium Macrocarp [Cranberry] 1,000 mg PEG BID 08/06/17 Diphenhydramine HCl 25 mg GT Q6H PRN 08/06/17 Glycopyrrolate 2 mg GT Q6H 08/06/17 Ipratropium Holl[place] 0.02 % INH Q2H PRN 08/06/17 Ipratropium [place] 2.5 ml INH BID 08/06/17 Multiple Vitamins W/ Minerals [Multivitamin Adults] 1 tab GT DAILY 08/06/17 Potassium Chloride Elixir [Kaochlor Liquid] 40 meq GT DAILY 08/06/17 Probiotic Product [Acidophilus Probiotic Ble] 4 tab GT BID 08/06/17 Psyllium Husk (Bulk) [Psyllium Husk] 15 ml GT DAILY 08/06/17 Acetaminophen [Acetaminophen ER] 650 mg PO Q4H PRN 10/27/17 Acetylcystein 20 % [Mucomyst] 2 ml INH TID 10/27/17 Ascorbic Acid [Vitamin C] 500 mg GT BID 10/27/17 Bisacodyl [Dulcolax Tab] 10 mg PO AHMET-OTH-DAY 10/27/17 Ibuprofen [Motrin Ib] 200 mg GT Q4H PRN 10/27/17 Loratadine 10 mg PEG DAILY 10/27/17 Magnesium Hydroxide [Milk of Magnesia Concentr] 30 ml PEG DAILY PRN 10/27/17 Metoclopramide HCl 20 mg PEG Q8H 10/27/17 Ondansetron [Zofran Odt] 8 mg PO Q6H PRN 10/27/17 Pantoprazole Suspension [Protonix] 40 mg GT ACBK 10/27/17 Racepinephrine 2.25% [(None)] 0.5 ml INH Q6H PRN 10/27/17 Sennosides 8.6MG [Senokot] 2 ea PO PRN 10/27/17 Silodosin [Rapaflo] 4 mg GT DAILY 10/27/17 Transfer to Outside Facility - Transfer Information Accepting Provider:: DR. PARIS/DR. HUMPHRIES Accepting Facility: [facility] Reason for Transfer: ICU
--- NOTE | 2017-10-27 08:08 | RAD ---
EXAM DESCRIPTION: Chest,1 View CLINICAL HISTORY: Sepsis FINDINGS/ IMPRESSION: Comparison 10/01/2017 Mild cardiomegaly. Increased density in the right lower lobe, likely basilar atelectasis. There may be coexistent infiltrate. There is slight increased density in the retrocardiac left lower lobe as well No pulmonary edema Right upper extremity PICC line distal tip in the superior vena cava. Tracheostomy tube appropriately positioned Electronically signed by: Issac Berger MD 10/27/2017 8:06 AM CDT
--- NOTE | 2017-10-27 10:55 | CT ---
EXAM DESCRIPTION: Abdomen/Pelvis w/Contrast: Computed Tomography. CLINICAL HISTORY: abd distention, vomiting, recent cholecystitisChronic ALS. COMPARISON: CT abdomen and pelvis with contrast 10/01/2017. TECHNIQUE: Spiral-axial scans at 5.0 mm intervals through the abdomen and pelvis, after nonionic IV contrast. No oral contrast. Coronal and sagittal 2.0 mm reconstructions. No adverse reactions. Total Exam DLP: 1532.35 mGy-cm. This exam was performed according to our departmental dose-optimization program which includes automated exposure control, adjustment of the mA and/or kV according to patient size and/or use of iterative reconstruction technique; to reduce radiation dose to as low as reasonably achievable (ALARA). FINDINGS: Lung bases and pleura: Bilateral atelectasis or pneumonia with air bronchograms again seen in the bases but not completely. Bilateral pleural thickening with more involvement of the right lower lobe in the left. No significant change from the prior study. Liver, Stomach, Spleen, Adrenal Glands: Fatty infiltration of the liver and stable enlargement of the right lobe. Marked distention of the stomach and duodenum with air-fluid level in both organs. Stable position of PEG tube in the distal body of the stomach with no complications in the abdominal wall. Proximal jejunum is also dilated with air-fluid levels. Other solid organs are unremarkable.. Pancreas, Gallbladder, Ducts: Minimal fatty infiltration of the pancreas. Percutaneous T-tube in the gallbladder fossa and common bile duct. No residual fluid. Normal caliber of the common bile duct. Kidneys and Ureters: Again noted is cortical atrophy left kidney. Stable stone in the inferior collecting system of the right kidney with no hydronephrosis. Mesentery: No free air or free fluid. No significant stranding. Aorta: Moderate atherosclerotic calcification and narrowing of the distal lumen. Small Bowel: Marked distention of the jejunum with air-fluid levels. No wall thickening. Transition point on series 2, images 43-47. No mass or fatty inflammatory changes or fatty density. Minimal gas in the proximal ileum and fluid more distally with no distention. Terminal Ileum/Cecum: Unremarkable. Colon: Minimal distention of the transverse colon by gas. Again noted is long segment of sigmoid redundancy with distention by gas and air-fluid level proximally. No wall thickening. Transition point distal sigmoid lower midline images 70-80. No definite mass or fatty changes.. Pelvic Organs: Catheter in the urinary bladder with distended balloon. Question of radiodense material in the base of the urinary bladder abutting the balloon also seen on the prior study and may be part of the catheter. No fluid in the anterior peritoneal reflection. Small prostate gland.. Spine and Bony Pelvis: Unusual marrow distribution again noted in the vertebral bodies with anterior ankylosis in the lower thoracic spine. Abnormal marrow also seen in the pelvic bones and femurs with osteoarthrosis bilateral hip joints, multiple small lytic lesions, and bilateral SI joint arthrosis. Abdominal Wall/Back Soft Tissues: Diffuse muscle atrophy abdominal wall bilateral psoas muscles paraspinal muscles and pelvic and hip muscles again noted. IMPRESSION: 1. Distention of the stomach and duodenum and jejunum; this has increased since the prior study. Multiple air-fluid levels. Transition point distal jejunum mid abdomen. Stable PEG tube distal stomach. Markedly redundant sigmoid colon with proximal air-fluid levels and transition point in the distal sigmoid colon. Stable since the prior study. There is no evidence of mass, scarring, inflammation, or bowel thickening at the transition points. 2. Stable position of percutaneous T-tube with no dilation of intrahepatic ducts or common bile duct. Hepatomegaly and fatty infiltration of the liver. 3. Bilateral lung base atelectasis or pneumonia showing no significant change, no pleural effusion. 4. Stable cortical atrophy left kidney. 5. Diffuse decreased bone marrow density spine pelvis and hips. Diffuse muscle atrophy abdomen spine hips and pelvis. CRITICAL COMMUNICATION: The critical value was discussed directly by phone with Dr. Neal Garland at approximately 1045 hours, on 10/27/2017. Electronically signed by: Nestor Deras MD 10/27/2017 10:52 AM CDT
[2017-10-27] MEDS ORDERED: MEROPENEM 1 GM in SODIUM CHL 0.9% 50ML MIN-BAG+ 50 ML IVPB ONE (11:44)
[2017-10-27] MEDS ORDERED: MEROPENEM 1 GM VIAL IVPB ONE (11:50)
[2017-10-27] MEDS ORDERED: SODIUM CHL 0.9% 50ML MIN-BAG+ 50 ML IVPB ONE (11:50)
[2017-10-27] MEDS ORDERED: SODIUM CHLORIDE 0.9% IVPB SCH (12:00)
[2017-10-27] MEDS ORDERED: VANCOMYCIN HCL IVPB SCH (12:00)
[2017-10-27] MEDS ORDERED: SODIUM CHLORIDE 0.9% 250ML 250 ML ONE (12:04)
[2017-10-27] MEDS ORDERED: VANCOMYCIN HCL INJ 1,000 MG VIAL IVPB ONE (12:04)
[2017-10-27] MEDS ORDERED: WATER FOR INJ 10 ML VIAL INJ ONE ×2 (12:08)
[2017-10-27] MEDS ORDERED: fentaNYL CITRATE INJ 50 MCG/ML AMP ONE (12:24)
[2017-10-27 12:53] VITALS: BP 131/75; O2SAT 99
== END 2017-10-27 12:45 | disposition short-term general hospital (02) ==
LOC: ER 07:11
DX: K56.0 Paralytic ileus (principal); G12.21 Amyotrophic lateral sclerosis; J95.851 Ventilator associated pneumonia; B96.89 Other specified bacterial agents as the cause of diseases classified elsewhere; D72.829 Elevated white blood cell count, unspecified; T83.511A Infection and inflammatory reaction due to indwelling urethral catheter, initial encounter; N39.0 Urinary tract infection, site not specified; R14.0 Abdominal distension (gaseous); R11.10 Vomiting, unspecified; I10 Essential (primary) hypertension; G82.50 Quadriplegia, unspecified; Z93.1 Gastrostomy status; R47.01 Aphasia
CPT/HCPCS: 36415; 36600; 71045; 74177; 80053; 81001; 82550; 82553; 82803; 82805; 83605; 84484; 85025; 85610; 85730; 87040; 87086; 93005; 94002; A4216; J2185; J2765; J3010; J3370; J7030; J7050

== ENCOUNTER → 2018-01-10 | Outpatient (CLI) | payer MEDICARE, MEDICAID | LOC: GOCC 14:57 | PROVIDERS: ATTEND Internal Medicine | DX: R82.99 Other abnormal findings in urine (principal) ==

== ENCOUNTER → 2018-01-11 | Outpatient (CLI) | payer MEDICARE, MEDICAID | LOC: GOCC 12:05 | PROVIDERS: ATTEND Internal Medicine | DX: R82.99 Other abnormal findings in urine (principal) ==

== ENCOUNTER 2018-03-27 15:17 | Emergency (ER) | payer MEDICARE, MEDICAID ==
--- NOTE | 2018-03-27 15:27 | ED.PDOC ---
History of Present Illness - General Chief Complaint: Problem Stated Complaint: poss UTI Time Seen by Provider: 03/27/18 15:26 Source: family - Exam Limitations: clinical condition - thacheostomy on ventilator - History of Present Illness Initial Comments: Umberto Galicia 52 y/o male with ALS-2013,s/p tracheostomy and on chronic ventilatory assistance for respiratory support brought by EMS from [facility] with fever t-101 and history of UTI on chronic indwelling cath abdomen getting more distended..Had also been hospitalized in [facility] for liver abscess and colitis last year.Patient unable to communicate verbally due to trach.No N/V;had big bowel movement yesterday. Timing/Duration: 24 hours Severity: moderate Improving Factors: nothing Worsening Factors: other - ventialtory support,chronic indwelling cath, gastrostomy feeding ,ALS Associated Symptoms: other - SEE HPI Allergies/Adverse Reactions: Allergies Albuterol Allergy (Verified 12/09/15 22:32) Lidocaine Allergy (Verified 12/09/15 22:32) Home Medications: Ambulatory Orders Bisacodyl 10 mg WA DAILY PRN 12/09/15 Cyanocobalamin [Vitamin B-12 Cr] 1,000 mcg GT DAILY 12/09/15 Escitalopram Oxalate 10 mg GT DAILY 12/09/15 Ferrous Sulfate [Ferosul] 220 mg GT DAILY 12/09/15 Folic Acid 1 mg PEG DAILY 12/09/15 Gabapentin 7.5 ml GT Q8H 12/09/15 Guaifenesin 100 mg GT Q4H 12/09/15 Lidocaine 1% Pf [Xylocaine 1% PF] 2 ml INJ Q6H PRN 12/09/15 Polyethylene Glycol 3350 [Miralax] 17 gm GT DAILY 12/09/15 Riluzole 50 mg GT BID 12/09/15 Scopolamine Patch 1.5MG [Transderm-Scop Patch] 1 ea TD Q72H 12/09/15 Simethicone 80 mg GT QID 12/09/15 Tramadol HCl 100 mg GT Q4H PRN 12/09/15 Uti-Stat 30 ml GT BID 12/09/15 Alum & Mag Hydrox-Simethicone [Antacid Extra Strength An] 30 ml PEG TID PRN 12/17 Diphenhydramine HCl 25 mg GT Q6H PRN 08/06/17 Glycopyrrolate 2 mg GT Q6H 08/06/17 Ipratropium [place] 2.5 ml INH QID 08/06/17 Potassium Chloride Elixir [Kaochlor Liquid] 10 meq GT DAILY 08/06/17 Ibuprofen [Motrin Ib] 200 mg GT Q4H PRN 10/27/17 Metoclopramide HCl 20 mg PEG Q8H 10/27/17 Ondansetron [Zofran Odt] 4 mg PO Q6H PRN 10/27/17 Allopurinol [Zyloprim] 100 mg PEG DAILY 03/27/18 Artificial Tear Ointment [Lacri-Lube S.o.p] 1 oin OP QID PRN 03/27/18 Calcium Carbonate-Cholecalcife [Calcium 600+D3 600-400 mg-Unit] 1 tab PEG DAILY 03/27/18 Ciprofloxacin [Cipro] 500 mg PEG BID 03/27/18 Ibuprofen [Motrin Ib] 200 mg GT Q8H PRN 03/27/18 Meloxicam [Mobic] 7.5 mg GT DAILY 03/27/18 Silver Sulfadiazine [Silvadene] 1 % EX DAILY 03/27/18 Review of Systems - Review of Systems Constitutional: States: see HPI, fever Gastrointestinal/Abdominal: States: see HPI Genitourinary: States: see HPI Neurological: States: see HPI Unable to Obtain Due To: clinical condition - no verbal on tracheostomy Past Medical History (General) - Patient Medical History Hx Seizures: No Hx Stroke: No Hx Dementia: No Hx Asthma: No Hx of COPD: No Hx Cardiac Disorders: No Hx Congestive Heart Failure: No Hx Pacemaker: No Hx Hypertension: Yes Hx Thyroid Disease: No Hx Diabetes: No Hx Gastroesophageal Reflux: Yes Hx Renal Disease: No Hx Cancer: No Hx of HIV: No Hx Hepatitis C: No Hx MRSA: Yes - Sputum 2014 Hx Other PMH: Yes - ALS,Liver abscess s/p percutanous drainage;chronic uti MRSA Source:: Sputum Surgical History: appendectomy - Vaccination History Hx Tetanus, Diphtheria Vaccination: No Hx Influenza Vaccination: No Hx Pneumococcal Vaccination: Yes - Social History Hx Tobacco Use: No Hx Chewing Tobacco Use: No Hx Alcohol Use: No Hx Substance Use: No Hx Substance Use Treatment: No Hx Depression: Yes Hx Physical Abuse: No Hx Emotional Abuse: No Hx Suspected Abuse: No - Activities of Daily Living Fdc/Assisted Living (if applicable):: [facility] - Female History Patient : No Family Medical History - Family History Mother Family History: No Known Living Status: Still Living Physical Exam - Physical Exam General Appearance: Alert, No apparent distress Eye Exam: bilateral normal Ears, Nose, Throat: hearing grossly normal, normal ENT inspection Neck: other - patent tracheostomy Respiratory: chest non-tender, no respiratory distress, other - coarse BS Cardiovascular/Chest: normal peripheral pulses, regular rate, rhythm, no murmur Peripheral Pulses: radial,right: 2+, radial,left: 2+ Gastrointestinal/Abdominal: non tender, distended, other - decreased BS,patent gastrostomy tube Back Exam: normal inspection, no CVA tenderness, no vertebral tenderness Extremity: pedal edema - upper and lower extremities, other - contracture toes Neurologic: alert, motor weakness - flaccid both UE/LE Skin Exam: normal color, warm/dry, other - no skin breakdown pressure areas Progress - Progress Progress: 03/27/18 16:19 Vital Signs - 8 hr 03/27/18 03/27/18 03/27/18 15:24 15:39 15:50 Temperature 101.7 F H Pulse Rate [ 109 H Right Brachial] Respiratory 12 12 12 Rate Respiratory 12 Rate [Volume Control Data] Blood Pressure 118/73 [Right Arm] O2 Sat by Pulse 100 100 Oximetry - Results/Orders Results/Orders: Vital Signs - 8 hr 03/27/18 03/27/18 03/27/18 15:24 15:39 15:50 Temperature 101.7 F H Pulse Rate [ 109 H Right Brachial] Respiratory 12 12 12 Rate Respiratory 12 Rate [Volume Control Data] Blood Pressure 118/73 [Right Arm] O2 Sat by Pulse 100 100 Oximetry 03/27/18 03/27/18 17:01 17:30 Temperature 100 F H Pulse Rate [ 99 H Right Brachial] Respiratory 12 12 Rate Respiratory 12 Rate [Volume Control Data] Blood Pressure 114/76 [Right Arm] O2 Sat by Pulse 98 Oximetry 03/27/18 15:32 URINE CULTURE W/COLONY COUNT Stat 03/27/18 16:08 Hold Metformin x 48Hrs [id number] 03/27/18 16:12 KCl 40Meq/Ns [NS W/ KCL 40 meq/Liter] 1,000 ml IVS .QD 03/27/18 16:30 EKG STAT 03/28/18 09:00 Oxygen Daily Laboratory Results - last 24 hr 03/27/18 03/27/18 03/27/18 15:32 15:41 15:41 WBC 9.0 RBC 3.30 L Hgb 10.6 L Hct 31.0 L MCV 93.9 MCH 32.1 H MCHC 34.1 RDW 14.7 H Plt Count 195 MPV 7.4 Absolute Neuts (auto) 6.40 Absolute Lymphs (auto) 1.40 Absolute Monos (auto) 1.10 H Absolute Eos (auto) 0.10 Absolute Basos (auto) 0.00 Neutrophils % 71.7 Lymphocytes % 15.4 L Monocytes % 11.8 H Eosinophils % 0.9 L Basophils % 0.2 PT 11.6 H INR 1.16 H PTT (SP) 31.5 Sodium 126 L Potassium 2.6 L Chloride 95 L Carbon Dioxide 21 Anion Gap 12.6 BUN 32 H Creatinine < 0.40 L BUN/Creatinine Ratio 80.0 H Random Glucose 115 H Serum Osmolality 261.2 L Lactic Acid 0.9 Calcium 8.7 Magnesium 2.3 Total Bilirubin 1.2 H Direct Bilirubin 0.5 H Indirect Bilirubin 0.7 AST 15 ALT 14 Alkaline Phosphatase 212 H Creatine Kinase 13 L CK-MB (CK-2) 1.5 CK-MB (CK-2) % Not Reportable Troponin I < 0.02 Serum Total Protein 7.9 Albumin 3.1 L Urine Color Yellow Urine Appearance Sl cloudy Urine pH 7.0 Ur Specific [place] 1.020 Urine Protein 100 H Urine Glucose (UA) Negative Urine Ketones Negative Urine Blood Moderate H Urine Nitrite Negative Urine Bilirubin Negative Urine Urobilinogen 0.2 Ur Leukocyte Esterase Large H Urine RBC Obscured by wbc's H Urine WBC Tntc H Ur Epithelial Cells 0 Urine Bacteria Obscured by wbc's H - EKG/XRAY/CT XRAY: chest - bilateral pleural effusion CT Ordered: Yes - abd/p-SBO Departure - Departure Clinical Impression: Small bowel obstruction, Dependence on ventilator, status, Family hx of ALS ( amyotrophic lateral sclerosis), Bedridden Urinary tract infection associated with catheterization of urinary tract Qualifiers: Indwelling urinary catheter type: indwelling urethral catheter Encounter type: initial encounter Qualified Code(s): T83.511A - Infection and inflammatory reaction due to indwelling urethral catheter, initial encounter Time of Disposition: 17:48 Disposition: Transfer to Hospital Condition: Poor Departure Forms: Patient Portal Self Enrollment Referrals: CARLO GOODWIN [Primary Care Provider] - 1-2 Weeks Home Medications: Ambulatory Orders Bisacodyl 10 mg WA DAILY PRN 12/09/15 Cyanocobalamin [Vitamin B-12 Cr] 1,000 mcg GT DAILY 12/09/15 Escitalopram Oxalate 10 mg GT DAILY 12/09/15 Ferrous Sulfate [Ferosul] 220 mg GT DAILY 12/09/15 Folic Acid 1 mg PEG DAILY 12/09/15 Gabapentin 7.5 ml GT Q8H 12/09/15 Guaifenesin 100 mg GT Q4H 12/09/15 Lidocaine 1% Pf [Xylocaine 1% PF] 2 ml INJ Q6H PRN 12/09/15 Polyethylene Glycol 3350 [Miralax] 17 gm GT DAILY 12/09/15 Riluzole 50 mg GT BID 12/09/15 Scopolamine Patch 1.5MG [Transderm-Scop Patch] 1 ea TD Q72H 12/09/15 Simethicone 80 mg GT QID 12/09/15 Tramadol HCl 100 mg GT Q4H PRN 12/09/15 Uti-Stat 30 ml GT BID 12/09/15 Alum & Mag Hydrox-Simethicone [Antacid Extra Strength An] 30 ml PEG TID PRN 12/17 Diphenhydramine HCl 25 mg GT Q6H PRN 08/06/17 Glycopyrrolate 2 mg GT Q6H 08/06/17 Ipratropium [place] 2.5 ml INH QID 08/06/17 Potassium Chloride Elixir [Kaochlor Liquid] 10 meq GT DAILY 08/06/17 Ibuprofen [Motrin Ib] 200 mg GT Q4H PRN 10/27/17 Metoclopramide HCl 20 mg PEG Q8H 10/27/17 Ondansetron [Zofran Odt] 4 mg PO Q6H PRN 10/27/17 Allopurinol [Zyloprim] 100 mg PEG DAILY 03/27/18 Artificial Tear Ointment [Lacri-Lube S.o.p] 1 oin OP QID PRN 03/27/18 Calcium Carbonate-Cholecalcife [Calcium 600+D3 600-400 mg-Unit] 1 tab PEG DAILY 03/27/18 Ciprofloxacin [Cipro] 500 mg PEG BID 03/27/18 Ibuprofen [Motrin Ib] 200 mg GT Q8H PRN 03/27/18 Meloxicam [Mobic] 7.5 mg GT DAILY 03/27/18 Silver Sulfadiazine [Silvadene] 1 % EX DAILY 03/27/18 Transfer to Outside Facility - Transfer Information Accepting Provider:: dr. Quintana Accepting Facility: [facility] Reason for Transfer: specialized care not available - GI specialist
--- NOTE | 2018-03-27 16:06 | RAD ---
EXAM DESCRIPTION: Chest,1 View CLINICAL HISTORY:52 years Male, abdominal distention Comparison: October 27, 2017 FINDINGS: Minimal right basilar subsegmental atelectasis. No focal lung consolidation. Tracheostomy tube again noted. No pleural effusion. No pneumothorax. Cardiac and mediastinal silhouette is unremarkable. No acute osseous abnormality. Osseous degenerative changes and chronic deformity of the left femoral neck. Soft tissues are unremarkable. IMPRESSION: Minimal right basilar subsegmental atelectasis or scarring. No focal lung consolidation. Electronically signed by: Vicente Carbone MD 03/27/2018 4:05 PM CDT
[2018-03-27] MEDS ORDERED: POTASSIUM CHLORIDE 20 MEQ TAB PO ONE (16:09)
[2018-03-27] MEDS ORDERED: KCL 40MEQ/NS 1,000 ML IVS PRN (16:12)
[2018-03-27] MEDS ORDERED: POTASSIUM CHLORIDE ELIXIR 20 MEQ/15 ML UD PO ONE (16:26)
[2018-03-27] MEDS ORDERED: ACETAMINOPHEN SUPPOSITORY 650 MG PR ONE (17:05)
--- NOTE | 2018-03-27 17:08 | CT ---
EXAM DESCRIPTION: Abdomen/Pelvis w/Contrast CLINICAL HISTORY: 52 years Male abdominal distention COMPARISON: 10/27/2017 TECHNIQUE: Contiguous axial images obtained through the abdomen and pelvis following IV contrast. Reformatted images obtained. This exam was performed according to our department optimization program which includes automated exposure control, adjustment of the mA and/or kv according to patient size and/or use of iterative reconstruction technique. FINDINGS: There is consolidation and fluid in the right lower lobe. Atelectasis and a small amount of fluid in the left lung base. The liver is enlarged measuring 20 cm. There has been removal of the previously noted pigtail catheter. No focal liver lesion is identified. Spleen is mildly enlarged. The pancreas and adrenal glands are unremarkable. There is a PEG tube in place. There is left renal atrophy with nonobstructing calculi noted bilaterally. There is mild hydronephrosis on the right with an obstructing proximal ureteral calculus measuring 4 mm. Urinary bladder is incompletely distended with a Hernandez catheter in place. The gallbladder is present. No aneurysmal dilatation of the aorta. There is moderate fluid-filled distention of bowel in a pattern consistent with obstruction. Zone of transition is in the right lower quadrant. The appendix is unremarkable. Incidental note is made of some hyperdensity along the dependent portions of loops of small bowel as seen on axial image 71. This may be related to bowel contents but the possibility of a sessile mass or masses is not excluded. IMPRESSION: Dilatation of small bowel consistent with obstruction with zone of transition in the right lower quadrant Right hydronephrosis with an obstructing 4 mm proximal ureteral stone Hepatosplenomegaly Consolidation in the right lower lobe with right pleural effusion with small amount of atelectasis in the left base and left pleural effusion Nonobstructing renal calculi Some hyperdensity in the dependent portion of dilated loops of small bowel likely reflecting bowel contents. Possibility of sessile mass thought unlikely but not excluded Electronically signed by: Cassandra Gamboa MD 03/27/2018 5:06 PM CDT
[2018-03-27 18:07] VITALS: BP 110/78; TEMP 98.7; O2SAT 97
== END 2018-03-27 18:07 | disposition short-term general hospital (02) ==
LOC: ER 15:17
DX: K56.609 Unspecified intestinal obstruction, unspecified as to partial versus complete obstruction (principal); T83.511A Infection and inflammatory reaction due to indwelling urethral catheter, initial encounter; G12.21 Amyotrophic lateral sclerosis; I10 Essential (primary) hypertension; K21.9 Gastro-esophageal reflux disease without esophagitis; Z99.11 Dependence on respirator [ventilator] status; Z79.899 Other long term (current) drug therapy; Z88.8 Allergy status to other drugs, medicaments and biological substances; Z74.01 Bed confinement status
CPT/HCPCS: 36415; 71045; 74177; 80048; 80076; 81001; 82550; 82553; 83605; 84484; 85025; 85610; 85730; 87086; 93005; 94002; 94770; J3480

== ENCOUNTER 2018-05-15 13:49 | Emergency (ER) | payer MEDICARE, MEDICAID ==
--- NOTE | 2018-05-15 14:33 | RAD ---
EXAM DESCRIPTION: Chest,1 View CLINICAL HISTORY: RUQ pain, on ventilator COMPARISON: 03/27/2018 FINDINGS: Tracheostomy is in place. There is worsening consolidation at the right lung base. Mild pulmonary edema bilaterally. Left lung is clear. IMPRESSION: Worsening right lung base consolidation. Electronically signed by: Nestor Contreras 05/15/2018 2:32 PM CDT
[2018-05-15 14:36] VITALS: O2SAT 100
--- NOTE | 2018-05-15 16:43 | CT ---
EXAMINATION: POSTCONTRAST ABDOMEN AND PELVIC CT EXAMINATION. REFERRAL DIAGNOSIS: Abdominal pain. COMPARISONS: Compared to the postcontrast abdomen CT examination of March 27, 2018. PROCEDURE: Using low-dose helical technique, thin section axial images were performed through the abdomen and pelvis after the uncomplicated intravenous administration of nonionic iodinated contrast material. No oral contrast was administered. FINDINGS: Resolution of right urinary system obstruction with passage of stone in the upstream right ureter since the comparison examination. 2 punctate nonobstructing right upper renal collecting system stones measuring up to 2 mm in diameter. 4.5 cm hypodense multilobulated structure in the anterior aspect of the inferior right hepatic lobe. Unchanged 1.5 cm nodular density in the far inferior right attic lobe. Hernandez catheter is in the nondistended urinary bladder. Left kidney remains very small. The liver, spleen, fluid-filled gallbladder, pancreas, adrenal glands, kidneys, renal collecting systems, ureters and unenhanced urinary bladder are otherwise normal. Percutaneous PEG tube balloon tip is in the stomach. The unenhanced nondistended stomach and duodenum cannot be further evaluated. Ascending colon diverticulosis with evidence of moderate to severe mid ascending colon diverticulitis. New since the March 27, [address] examination is a 4.5 cm cystic structure in the peripheral right hepatic lobe could represent associated cyst, seroma or possibly abscess cavity. Ultrasound of the liver would prove useful for further evaluation. Suspect remote appendectomy. No evidence of chronic inflammatory bowel disease, mechanical small bowel obstruction or extraluminal bowel gas. No retroperitoneal hemorrhage or evidence of psoas muscle abscess. Unchanged moderate to severe atherosclerotic calcification in the abdominal aorta and common iliac arteries without aneurysm or dissection. AP diameter of the infrarenal abdominal aorta measures 1.9 cm. No imaging follow-up recommended. Suspect osteoporosis versus osteopenia. Bones appear otherwise normal. Multi segmental right lower lobe atelectasis with air bronchograms. Small right pleural effusion. Findings appear unchanged since the March 27, [address] examination. IMPRESSION: 1. Ascending colon diverticulosis with evidence of moderate to severe diverticulitis. No adjacent mature abscess cavity, extraluminal bowel gas or bowel obstruction. 2. New 4.5 cystic structure in/on the peripheral anterior right hepatic lobe is new since the March 27, 2018 CT examination and could represent focal cyst, seroma or possibly abscess cavity. Right upper quadrant abdominal ultrasound would prove useful for further detailed evaluation. 3. Unchanged 1.5 cm hypodensity in the far inferior right hepatic lobe probably unchanged since the 07/29/2017 CT examination and possibly represents a small hepatic hemangioma. Ultrasound of the liver would prove useful for further evaluation. 4. Hernandez catheter is in the nondistended urinary bladder. Suspect calcified stones layering in the urinary bladder. 5. Percutaneous gastric feeding tube tip is in the stomach. No evidence of associated abscess or extraluminal bowel gas. 6. The fluid-filled gallbladder appears normal. 7. Resolution of obstructing right nephrolithiasis since the comparison CT examination. 3. Unchanged punctate nonobstructing right upper renal collecting system stones. This exam was performed according to our departmental dose-optimization program, which includes automated exposure control, adjustment of the mA and/or kV according to patient size and/or use of iterative reconstruction technique. Electronically signed by: Willie Ayala MD 05/15/2018 4:41 PM CDT
[2018-05-15] MEDS ORDERED: cefTRIAXone SODIUM 1 GM in SODIUM CHL 0.9% 50ML MIN-BAG+ 50 ML IVPB ONE (17:10)
--- NOTE | 2018-05-15 17:27 | ED.PDOC ---
History of Present Illness - General Chief Complaint: Abdominal Pain Stated Complaint: R-sided abdominal pain Time Seen by Provider: 05/15/18 14:02 Source: family Exam Limitations: clinical condition, physical impairment - History of Present Illness Initial Comments: Patient presents from [facility] with permanent mechanical ventilation. Per his , he has been indicating that he has had RUQ pain for several days. The last time that this happened was this summer and he ended up having a UTI and a liver abscess. He required an infectious disease consult at that time. He has been afebrile. His only symptom has been indicating the pain. Timing/Duration: unsure Severity: moderate Improving Factors: nothing Worsening Factors: nothing Associated Symptoms: other - per family, no other symptoms Allergies/Adverse Reactions: Allergies Albuterol Allergy (Verified 12/09/15 22:32) Lidocaine Allergy (Verified 12/09/15 22:32) Home Medications: Ambulatory Orders Bisacodyl 10 mg MA DAILY PRN 12/09/15 Cyanocobalamin [Vitamin B-12 Cr] 1,000 mcg GT DAILY 12/09/15 Escitalopram Oxalate 10 mg GT DAILY 12/09/15 Ferrous Sulfate [Ferosul] 220 mg GT DAILY 12/09/15 Folic Acid 1 mg PEG DAILY 12/09/15 Gabapentin 7.5 ml GT Q8H 12/09/15 Guaifenesin 100 mg GT Q4H 12/09/15 Lidocaine 1% Pf [Xylocaine 1% PF] 2 ml INJ Q6H PRN 12/09/15 Polyethylene Glycol 3350 [Miralax] 17 gm GT DAILY 12/09/15 Riluzole 50 mg GT BID 12/09/15 Scopolamine Patch 1.5MG [Transderm-Scop Patch] 1 ea TD Q72H 12/09/15 Simethicone 80 mg GT QID 12/09/15 Tramadol HCl 100 mg GT Q4H PRN 12/09/15 Uti-Stat 30 ml GT BID 12/09/15 Alum & Mag Hydrox-Simethicone [Antacid Extra Strength An] 30 ml PEG TID PRN 12/17 Diphenhydramine HCl 25 mg GT Q6H PRN 08/06/17 Glycopyrrolate 2 mg GT Q6H 08/06/17 Ipratropium [place] 2.5 ml INH QID 08/06/17 Potassium Chloride Elixir [Kaochlor Liquid] 10 meq GT DAILY 08/06/17 Ibuprofen [Motrin Ib] 200 mg GT Q4H PRN 10/27/17 Metoclopramide HCl 20 mg PEG Q8H 10/27/17 Ondansetron [Zofran Odt] 4 mg PO Q6H PRN 10/27/17 Allopurinol [Zyloprim] 100 mg PEG DAILY 03/27/18 Artificial Tear Ointment [Lacri-Lube S.o.p] 1 oin OP QID PRN 03/27/18 Calcium Carbonate-Cholecalcife [Calcium 600+D3 600-400 mg-Unit] 1 tab PEG DAILY 03/27/18 Ciprofloxacin [Cipro] 500 mg PEG BID 03/27/18 Ibuprofen [Motrin Ib] 200 mg GT Q8H PRN 03/27/18 Meloxicam [Mobic] 7.5 mg GT DAILY 03/27/18 Silver Sulfadiazine [Silvadene] 1 % EX DAILY 03/27/18 Review of Systems - Review of Systems Unable to Obtain Due To: condition, intubated Past Medical History (General) - Patient Medical History Hx Seizures: No Hx Stroke: No Hx Dementia: No Hx Asthma: No Hx of COPD: No Hx Cardiac Disorders: No Hx Congestive Heart Failure: No Hx Pacemaker: No Hx Hypertension: Yes Hx Thyroid Disease: No Hx Diabetes: No Hx Gastroesophageal Reflux: Yes Hx Renal Disease: No Hx Cancer: No Hx of HIV: No Hx Hepatitis C: No Hx MRSA: Yes - Sputum 2014 MRSA Source:: Sputum - Vaccination History Hx Tetanus, Diphtheria Vaccination: No Hx Influenza Vaccination: No Hx Pneumococcal Vaccination: Yes - Social History Hx Tobacco Use: No Hx Chewing Tobacco Use: No Hx Alcohol Use: No Hx Substance Use: No Hx Substance Use Treatment: No Hx Depression: Yes Hx Physical Abuse: No Hx Emotional Abuse: No Hx Suspected Abuse: No - Activities of Daily Living Long Term/Assisted Living (if applicable):: [facility] - Female History Patient : No Family Medical History - Family History Mother Family History: No Known Living Status: Still Living Physical Exam - Physical Exam General Appearance: Alert Eye Exam: bilateral normal Ears, Nose, Throat: normal ENT inspection - except for laryngeal tube in place Neck: other - see ENT Respiratory: lungs clear, normal breath sounds Cardiovascular/Chest: normal peripheral pulses, regular rate, rhythm, no edema Gastrointestinal/Abdominal: normal bowel sounds, non tender, soft, other - PEG tube in place Extremity: other - quadriplegic Neurologic: other - Quadriplegic Skin Exam: normal color Lymphatic: no adenopathy Progress - Progress Progress: 05/15/18 17:29 Laboratory Tests 05/15/18 05/15/18 05/15/18 14:20 14:20 14:20 WBC 10.6 RBC 2.99 L Hgb 9.8 L Hct 29.0 L MCV 96.9 H MCH 32.7 H MCHC 33.7 RDW 14.9 H Plt Count 196 MPV 7.1 L Absolute Neuts (auto) 8.00 H Absolute Lymphs (auto) 1.20 Absolute Monos (auto) 1.30 H Absolute Eos (auto) 0.00 Absolute Basos (auto) 0.00 Neutrophils % 75.6 Lymphocytes % 11.3 L Monocytes % 12.5 H Eosinophils % 0.3 L Basophils % 0.3 Sodium 133 L Potassium 3.4 L Chloride 108 Carbon Dioxide 18 L Anion Gap 10.4 L BUN 18 Creatinine < 0.40 L BUN/Creatinine Ratio 45.0 H Random Glucose 138 H Serum Osmolality 270.5 L Calcium 9.2 Total Bilirubin 1.3 H AST 15 ALT 16 Alkaline Phosphatase 229 H Serum Total Protein 8.4 H Albumin 3.2 Globulin 5.2 H Albumin/Globulin Ratio 0.6 L Lipase < 14 L Urine Color Urine Appearance Urine pH Ur Specific [place] Urine Protein Urine Glucose (UA) Urine Ketones Urine Blood Urine Nitrite Urine Bilirubin Urine Urobilinogen Ur Leukocyte Esterase Urine RBC Urine WBC Ur Epithelial Cells Urine Bacteria 05/15/18 14:50 WBC RBC Hgb Hct MCV MCH MCHC RDW Plt Count MPV Absolute Neuts (auto) Absolute Lymphs (auto) Absolute Monos (auto) Absolute Eos (auto) Absolute Basos (auto) Neutrophils % Lymphocytes % Monocytes % Eosinophils % Basophils % Sodium Potassium Chloride Carbon Dioxide Anion Gap BUN Creatinine BUN/Creatinine Ratio Random Glucose Serum Osmolality Calcium Total Bilirubin AST ALT Alkaline Phosphatase Serum Total Protein Albumin Globulin Albumin/Globulin Ratio Lipase Urine Color Yellow Urine Appearance Clear Urine pH 6.0 Ur Specific [place] <= 1.005 Urine Protein Negative Urine Glucose (UA) Negative Urine Ketones Negative Urine Blood Moderate H Urine Nitrite Negative Urine Bilirubin Negative Urine Urobilinogen 0.2 Ur Leukocyte Esterase Large H Urine RBC 10-20 H Urine WBC 10-20 H Ur Epithelial Cells 0 Urine Bacteria 2+ H UTI, diverticulitis, and RLL infiltrate all identified initially. CT ab/pelivs showed a new 4.5 cm cystic area of the liver. This could be an abscess. AP 229. Patient has four possible sources of infection, is chronically ventilated, and has needed infectious disease consults recently. He will be better served at [facility] where he was treated last time and will have the proper resources this time. The agreed with the transfer after discussion of the findings. Departure - Departure Clinical Impression: Diverticulitis, UTI (urinary tract infection), Liver abscess, Pneumonia Disposition: Transfer to Hospital Condition: Poor Departure Forms: ED Discharge - Pt. Copy, Patient Portal Self Enrollment Diet: other - as per hospitalist Activity: other - as per hospitalist Referrals: CARLO GOODWIN [Primary Care Provider] - 1-2 Weeks Home Medications: Ambulatory Orders Bisacodyl 10 mg MA DAILY PRN 12/09/15 Cyanocobalamin [Vitamin B-12 Cr] 1,000 mcg GT DAILY 12/09/15 Escitalopram Oxalate 10 mg GT DAILY 12/09/15 Ferrous Sulfate [Ferosul] 220 mg GT DAILY 12/09/15 Folic Acid 1 mg PEG DAILY 12/09/15 Gabapentin 7.5 ml GT Q8H 12/09/15 Guaifenesin 100 mg GT Q4H 12/09/15 Lidocaine 1% Pf [Xylocaine 1% PF] 2 ml INJ Q6H PRN 12/09/15 Polyethylene Glycol 3350 [Miralax] 17 gm GT DAILY 12/09/15 Riluzole 50 mg GT BID 12/09/15 Scopolamine Patch 1.5MG [Transderm-Scop Patch] 1 ea TD Q72H 12/09/15 Simethicone 80 mg GT QID 12/09/15 Tramadol HCl 100 mg GT Q4H PRN 12/09/15 Uti-Stat 30 ml GT BID 12/09/15 Alum & Mag Hydrox-Simethicone [Antacid Extra Strength An] 30 ml PEG TID PRN 12/17 Diphenhydramine HCl 25 mg GT Q6H PRN 08/06/17 Glycopyrrolate 2 mg GT Q6H 08/06/17 Ipratropium [place] 2.5 ml INH QID 08/06/17 Potassium Chloride Elixir [Kaochlor Liquid] 10 meq GT DAILY 08/06/17 Ibuprofen [Motrin Ib] 200 mg GT Q4H PRN 10/27/17 Metoclopramide HCl 20 mg PEG Q8H 10/27/17 Ondansetron [Zofran Odt] 4 mg PO Q6H PRN 10/27/17 Allopurinol [Zyloprim] 100 mg PEG DAILY 03/27/18 Artificial Tear Ointment [Lacri-Lube S.o.p] 1 oin OP QID PRN 03/27/18 Calcium Carbonate-Cholecalcife [Calcium 600+D3 600-400 mg-Unit] 1 tab PEG DAILY 03/27/18 Ciprofloxacin [Cipro] 500 mg PEG BID 03/27/18 Ibuprofen [Motrin Ib] 200 mg GT Q8H PRN 03/27/18 Meloxicam [Mobic] 7.5 mg GT DAILY 03/27/18 Silver Sulfadiazine [Silvadene] 1 % EX DAILY 03/27/18
[2018-05-15] MEDS ORDERED: SODIUM CHL 0.9% 50ML MIN-BAG+ 50 ML IVPB ONE (17:32)
[2018-05-15] MEDS ORDERED: cefTRIAXone SODIUM 1 GM VIAL ONE (17:32)
[2018-05-15] MEDS ORDERED: MORPHINE SULFATE INJ 10 MG/ML VIAL IV ONE (17:33)
[2018-05-15 17:35] VITALS: BP 95/68; TEMP 99.5
== END 2018-05-15 17:50 | disposition short-term general hospital (02) ==
LOC: ER 13:49
DX: K57.32 Diverticulitis of large intestine without perforation or abscess without bleeding (principal); N39.0 Urinary tract infection, site not specified; J18.9 Pneumonia, unspecified organism; K75.0 Abscess of liver; G82.50 Quadriplegia, unspecified; F32.9 Major depressive disorder, single episode, unspecified; K21.9 Gastro-esophageal reflux disease without esophagitis; I10 Essential (primary) hypertension; Z86.14 Personal history of Methicillin resistant Staphylococcus aureus infection; Z88.8 Allergy status to other drugs, medicaments and biological substances; Z79.899 Other long term (current) drug therapy
CPT/HCPCS: 36415; 71045; 74177; 80053; 81001; 83690; 85025; 87086; J0696; J2270; J7050

== ENCOUNTER → 2018-12-05 | Outpatient (CLI) | payer MEDICARE, MEDICAID | LOC: GOCC 15:08 | PROVIDERS: ATTEND Internal Medicine | DX: N39.0 Urinary tract infection, site not specified (principal) ==

== ENCOUNTER 2019-02-27 04:06 | Emergency (ER) | payer MEDICARE, MEDICAID ==
--- NOTE | 2019-02-27 04:27 | ED.PDOC ---
History of Present Illness - General Chief Complaint: Respiratory Problem Stated Complaint: Low oxygen sats at [facility] Time Seen by Provider: 02/27/19 04:21 Source: family Exam Limitations: no limitations - History of Present Illness Initial Comments: Patient's give the history. 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 His says that he was in isolation a few weeks ago for pneumonia but was taken off the antibiotics about two weeks ago under the suspicion that he had C. Diff. He was started on Flagyl but that has since discontinued. She says he has not had significant diarrhea. Through facial gestures, the is able to accurately understand the patient's answers to hers and my questions. The patient denies pain with mechanical inhalation. Had a low grade fever today. No other complaints. Timing/Duration: unsure Severity: mild Improving Factors: nothing Worsening Factors: nothing Associated Symptoms: denies symptoms Allergies/Adverse Reactions: Allergies Acetaminophen [From Tylenol] Allergy (Verified 02/27/19 04:56) Albuterol Allergy (Verified 12/09/15 22:32) Lidocaine Allergy (Verified 12/09/15 22:32) Home Medications: Ambulatory Orders Bisacodyl 10 mg HI DAILY PRN 12/09/15 Cyanocobalamin [Vitamin B-12 Cr] 1,000 mcg GT DAILY 12/09/15 Escitalopram Oxalate 10 mg GT DAILY 12/09/15 Ferrous Sulfate [Ferosul] 220 mg GT DAILY 12/09/15 Folic Acid 1 mg PEG DAILY 12/09/15 Gabapentin 7.5 ml GT Q8H 12/09/15 Guaifenesin 100 mg GT Q4H 12/09/15 Lidocaine 1% Pf [Xylocaine 1% PF] 2 ml INJ Q6H PRN 12/09/15 Polyethylene Glycol 3350 [Miralax] 17 gm GT DAILY 12/09/15 Riluzole 50 mg GT BID 12/09/15 Scopolamine Patch 1.5MG [Transderm-Scop Patch] 1 ea TD Q72H 12/09/15 Simethicone 80 mg GT QID 12/09/15 Tramadol HCl 100 mg GT Q4H PRN 12/09/15 Uti-Stat 30 ml GT BID 12/09/15 Alum & Mag Hydrox-Simethicone [Antacid Extra Strength An] 30 ml PEG TID PRN 08/06/17 Diphenhydramine HCl 25 mg GT Q6H PRN 08/06/17 Glycopyrrolate 2 mg GT Q6H 08/06/17 Ipratropium [place] 2.5 ml INH QID 08/06/17 Potassium Chloride Elixir [Kaochlor Liquid] 10 meq GT DAILY 08/06/17 Ibuprofen [Motrin Ib] 200 mg GT Q4H PRN 10/27/17 Metoclopramide HCl [Metoclopramide Hydrochlor] 20 mg PEG Q8H 10/27/17 Ondansetron [Zofran Odt] 4 mg PO Q6H PRN 10/27/17 Allopurinol [Zyloprim] 100 mg PEG DAILY 03/27/18 Calcium Carbonate-Cholecalcife [Calcium 600+D3 600-400 mg-Unit] 1 tab PEG DAILY 03/27/18 Ibuprofen [Motrin Ib] 200 mg GT Q8H PRN 03/27/18 Meloxicam [Mobic] 7.5 mg GT DAILY 03/27/18 Silver Sulfadiazine [Silvadene] 1 % EX DAILY 03/27/18 White Petrolatum-Mineral Oil [Lacri-Lube S.o.p] 1 oin OP QID PRN 03/27/18 Lactobacillus [Acidophilus] 1 cap PEG TID 02/27/19 Review of Systems - Review of Systems Constitutional: States: see HPI EENTM: States: no symptoms reported Respiratory: States: see HPI Cardiology: States: no symptoms reported Gastrointestinal/Abdominal: States: no symptoms reported Genitourinary: States: no symptoms reported Musculoskeletal: States: no symptoms reported Skin: States: no symptoms reported Neurological: States: see HPI Endocrine: States: no symptoms reported Hematologic/Lymphatic: States: no symptoms reported Past Medical History (General) - Patient Medical History Hx Seizures: No Hx Stroke: No Hx Dementia: No Hx Asthma: No Hx of COPD: No Hx Cardiac Disorders: No Hx Congestive Heart Failure: No Hx Pacemaker: No Hx Hypertension: Yes Hx Thyroid Disease: No Hx Diabetes: No Hx Gastroesophageal Reflux: Yes Hx Renal Disease: No Hx Cancer: No Hx of HIV: No Hx Hepatitis C: No Hx MRSA: Yes - Sputum 2013 MRSA Source:: Sputum - Vaccination History Hx Tetanus, Diphtheria Vaccination: No Hx Influenza Vaccination: No Hx Pneumococcal Vaccination: Yes - Social History Hx Tobacco Use: No Hx Chewing Tobacco Use: No Hx Alcohol Use: No Hx Substance Use: No Hx Substance Use Treatment: No Hx Depression: Yes Hx Physical Abuse: No Hx Emotional Abuse: No Hx Suspected Abuse: No - Female History Patient : No Family Medical History - Family History Mother Family History: No Known Living Status: Still Living Physical Exam - Physical Exam General Appearance: Alert Eye Exam: bilateral normal Ears, Nose, Throat: normal ENT inspection Neck: non-tender, full range of motion, supple Respiratory: other - insp/exp rhonchi in left lower lobe. Right lobes CTA. Cardiovascular/Chest: normal peripheral pulses, regular rate, rhythm, no edema Gastrointestinal/Abdominal: normal bowel sounds, non tender, soft Extremity: other - not testable due to ALS Neurologic: alert, other - not testable due to ALS Skin Exam: normal color Lymphatic: no adenopathy Progress - Progress Progress: 02/27/19 05:27 Laboratory Tests 02/27/19 02/27/19 02/27/19 04:15 04:40 04:40 WBC 14.9 H RBC 3.17 L Hgb 9.7 L Hct 29.5 L MCV 93.0 MCH 30.7 MCHC 33.0 RDW 16.9 H Plt Count 384 MPV 6.7 L Absolute Neuts (auto) 13.20 H Absolute Lymphs (auto) 0.60 L Absolute Monos (auto) 0.90 H Absolute Eos (auto) 0.10 Absolute Basos (auto) 0.10 Neutrophils % 88.6 H Lymphocytes % 4.0 L Monocytes % 6.3 Eosinophils % 0.5 L Basophils % 0.6 Sodium 129 L Potassium 3.4 L Chloride 99 L Carbon Dioxide 18 L Anion Gap 15.4 BUN 12 Creatinine < 0.40 L BUN/Creatinine Ratio 30.0 H Random Glucose 123 H Serum Osmolality 260.1 L Lactic Acid Calcium 8.6 Total Bilirubin 0.9 AST 22 ALT 18 Alkaline Phosphatase 224 H Serum Total Protein 8.1 Albumin 2.7 L Globulin 5.4 H Albumin/Globulin Ratio 0.5 L Urine Color Yellow Urine Appearance Sl cloudy Urine pH 7.0 Ur Specific [place] 1.015 Urine Protein Trace Urine Glucose (UA) Negative Urine Ketones Negative Urine Blood Small H Urine Nitrite Positive H Urine Bilirubin Negative Urine Urobilinogen 0.2 Ur Leukocyte Esterase Large H Urine RBC 3-5 H Urine WBC Tntc H Ur Epithelial Cells 3-5 Urine Bacteria 4+ H 02/27/19 04:40 WBC RBC Hgb Hct MCV MCH MCHC RDW Plt Count MPV Absolute Neuts (auto) Absolute Lymphs (auto) Absolute Monos (auto) Absolute Eos (auto) Absolute Basos (auto) Neutrophils % Lymphocytes % Monocytes % Eosinophils % Basophils % Sodium Potassium Chloride Carbon Dioxide Anion Gap BUN Creatinine BUN/Creatinine Ratio Random Glucose Serum Osmolality Lactic Acid 1.6 Calcium Total Bilirubin AST ALT Alkaline Phosphatase Serum Total Protein Albumin Globulin Albumin/Globulin Ratio Urine Color Urine Appearance Urine pH Ur Specific [place] Urine Protein Urine Glucose (UA) Urine Ketones Urine Blood Urine Nitrite Urine Bilirubin Urine Urobilinogen Ur Leukocyte Esterase Urine RBC Urine WBC Ur Epithelial Cells Urine Bacteria CXR showed opacity in the left hemithorax. UA showed UTI. WBC 14.9. Lactic acid 1.6. Blood cultures taken. Patient started on Zosyn 3.375 grams IV and Vancomycin 1 gram ordered to be given after the Zosyn. Patient accepted for transfer to [facility] per Dr. Silvino Quarles. Departure - Departure Clinical Impression: Pneumonia, UTI (urinary tract infection), Sepsis Disposition: Discharge to Home or Self Care Condition: Serious Departure Forms: ED Discharge - Pt. Copy, Patient Portal Self Enrollment Diet: other - as per hospitalist Activity: other - as per hospitalist Referrals: CARLO GOODWIN [Primary Care Provider] - 1-2 Weeks Home Medications: Ambulatory Orders Bisacodyl 10 mg HI DAILY PRN 12/09/15 Cyanocobalamin [Vitamin B-12 Cr] 1,000 mcg GT DAILY 12/09/15 Escitalopram Oxalate 10 mg GT DAILY 12/09/15 Ferrous Sulfate [Ferosul] 220 mg GT DAILY 12/09/15 Folic Acid 1 mg PEG DAILY 12/09/15 Gabapentin 7.5 ml GT Q8H 12/09/15 Guaifenesin 100 mg GT Q4H 12/09/15 Lidocaine 1% Pf [Xylocaine 1% PF] 2 ml INJ Q6H PRN 12/09/15 Polyethylene Glycol 3350 [Miralax] 17 gm GT DAILY 12/09/15 Riluzole 50 mg GT BID 12/09/15 Scopolamine Patch 1.5MG [Transderm-Scop Patch] 1 ea TD Q72H 12/09/15 Simethicone 80 mg GT QID 12/09/15 Tramadol HCl 100 mg GT Q4H PRN 12/09/15 Uti-Stat 30 ml GT BID 12/09/15 Alum & Mag Hydrox-Simethicone [Antacid Extra Strength An] 30 ml PEG TID PRN 08/06/17 Diphenhydramine HCl 25 mg GT Q6H PRN 08/06/17 Glycopyrrolate 2 mg GT Q6H 08/06/17 Ipratropium [place] 2.5 ml INH QID 08/06/17 Potassium Chloride Elixir [Kaochlor Liquid] 10 meq GT DAILY 08/06/17 Ibuprofen [Motrin Ib] 200 mg GT Q4H PRN 10/27/17 Metoclopramide HCl [Metoclopramide Hydrochlor] 20 mg PEG Q8H 10/27/17 Ondansetron [Zofran Odt] 4 mg PO Q6H PRN 10/27/17 Allopurinol [Zyloprim] 100 mg PEG DAILY 03/27/18 Calcium Carbonate-Cholecalcife [Calcium 600+D3 600-400 mg-Unit] 1 tab PEG DAILY 03/27/18 Ibuprofen [Motrin Ib] 200 mg GT Q8H PRN 03/27/18 Meloxicam [Mobic] 7.5 mg GT DAILY 03/27/18 Silver Sulfadiazine [Silvadene] 1 % EX DAILY 03/27/18 White Petrolatum-Mineral Oil [Lacri-Lube S.o.p] 1 oin OP QID PRN 03/27/18 Lactobacillus [Acidophilus] 1 cap PEG TID 02/27/19 Critical Care Note - Critical Care Note Total Time (mins): 70
--- NOTE | 2019-02-27 05:07 | RAD ---
Chest single view on 02/27/2019 CLINICAL INDICATION: Hypoxia COMPARISON: 05/15/2018 FINDINGS: ET tube tip is in the midthoracic trachea. There is apparent overinflation of the cuff of the ET tube. There is complete opacification of the right hemithorax with shift of the heart and mediastinum to the right. This may be predominantly related to atelectasis but component of pneumonia may also be present. Central obstructing mass would be of concern. Consider follow-up chest CT. The left lung is clear. Heart is within normal limits for size. IMPRESSION: Complete opacification of the right hemithorax that may be predominantly related to atelectasis but component of pneumonia may also be present. A central obstructing mass would be of concern versus possibly mucus plugging. Consider CT follow-up or bronchoscopy. Electronically signed by: Raleigh Fatima 02/27/2019 5:06 AM CDT
[2019-02-27] MEDS ORDERED: SODIUM CHLORIDE 0.9% 1000ML 1,000 ML IVS ONE (05:16)
[2019-02-27] MEDS ORDERED: cefTRIAXone SODIUM 1 GM in SODIUM CHL 0.9% 50ML MIN-BAG+ 50 ML IVPB ONE (05:16)
[2019-02-27] MEDS ORDERED: AZITHROMYCIN IV 500 MG in SODIUM CHLORIDE 0.9% 250ML 250 ML IVPB ONE (05:17)
[2019-02-27] MEDS ORDERED: SODIUM CHL 0.9% 50ML MIN-BAG+ 50 ML IVPB ONE (05:18)
[2019-02-27] MEDS ORDERED: cefTRIAXone SODIUM 1 GM VIAL ONE (05:18)
[2019-02-27] MEDS ORDERED: SODIUM CHLORIDE 0.9% 250ML 0 ML ONE (05:18)
[2019-02-27] MEDS ORDERED: AZITHROMYCIN IV 500 MG VIAL IVPB ONE (05:18)
[2019-02-27] MEDS ORDERED: PIPERACILLIN/TAZOBACTAM 3.375 GM in SODIUM CHLORIDE 0.9% 100ML 100 ML IVPB ONE (05:23)
[2019-02-27] MEDS ORDERED: VANCOMYCIN HCL INJ 1,000 MG in SODIUM CHLORIDE 0.9% 250ML 250 ML IVPB ONE (05:25)
[2019-02-27] MEDS ORDERED: SODIUM CHLORIDE 0.9% 100ML 100 ML IVPB ONE (05:27)
[2019-02-27] MEDS ORDERED: PIPERACILLIN/TAZOBACTAM 3.375 GM VIAL IVPB ONE (05:27)
[2019-02-27 05:48] VITALS: O2SAT 98
[2019-02-27 06:18] VITALS: BP 96/67; TEMP 97
== END 2019-02-27 06:12 | disposition home or self-care (01) ==
LOC: ER 04:06
DX: J18.9 Pneumonia, unspecified organism (principal); N39.0 Urinary tract infection, site not specified; A41.9 Sepsis, unspecified organism; G12.21 Amyotrophic lateral sclerosis; I10 Essential (primary) hypertension; K21.9 Gastro-esophageal reflux disease without esophagitis; F32.9 Major depressive disorder, single episode, unspecified; Z99.11 Dependence on respirator [ventilator] status; Z87.01 Personal history of pneumonia (recurrent); Z79.899 Other long term (current) drug therapy; Z88.6 Allergy status to analgesic agent; Z88.8 Allergy status to other drugs, medicaments and biological substances
CPT/HCPCS: 36415; 71045; 80053; 81001; 83605; 85025; 87040; 87086; 94002; 94770; J2543; J7030; J7050

== ENCOUNTER 2019-04-25 13:06 | Emergency (ER) | payer MEDICARE, MEDICAID ==
[2019-04-25] MEDS ORDERED: ASPIRIN (CHEWABLE) 81 MG TAB PO ONE (13:43)
--- NOTE | 2019-04-25 13:50 | ED.PDOC ---
History of Present Illness - General Chief Complaint: Chest Pain/IA Stated Complaint: chest pain Time Seen by Provider: 04/25/19 13:42 - History of Present Illness Initial Comments: 53 yo M PMH ALS on Vent presents to ED at bedside c/o chest pain and EKG concerning for ST depression in inferior leads. Pt. unable to meaningfully participate in history. Has h/o recurrent UTIs with thick sediment in moe. No mention of fever chills nausea vomiting diarrhea but very limited history of present illness and review of systems. No other c/o today. Allergies/Adverse Reactions: Allergies Acetaminophen [From Tylenol] Allergy (Verified 02/27/19 04:56) Albuterol Allergy (Verified 12/09/15 22:32) Lidocaine Allergy (Verified 12/09/15 22:32) Home Medications: Ambulatory Orders Bisacodyl 10 mg AR DAILY PRN 12/09/15 Cyanocobalamin [Vitamin B-12 Cr] 1,000 mcg GT DAILY 12/09/15 Escitalopram Oxalate 10 mg GT DAILY 12/09/15 Ferrous Sulfate [Ferosul] 220 mg GT DAILY 12/09/15 Folic Acid 1 mg PEG DAILY 12/09/15 Gabapentin 7.5 ml GT Q8H 12/09/15 Guaifenesin 100 mg GT Q4H 12/09/15 Lidocaine 1% Pf [Xylocaine 1% PF] 2 ml INJ Q6H PRN 12/09/15 Polyethylene Glycol 3350 [Miralax] 17 gm GT DAILY 12/09/15 Riluzole 50 mg GT BID 12/09/15 Scopolamine Patch 1.5MG [Transderm-Scop Patch] 1 ea TD Q72H 12/09/15 Simethicone 80 mg GT QID 12/09/15 Tramadol HCl 100 mg GT Q4H PRN 12/09/15 Uti-Stat 30 ml GT BID 12/09/15 Alum & Mag Hydrox-Simethicone [Antacid Extra Strength An] 30 ml PEG TID PRN 08/06/17 Diphenhydramine HCl 25 mg GT Q6H PRN 08/06/17 Glycopyrrolate 2 mg GT Q6H 08/06/17 Ipratropium [place] 2.5 ml INH QID 08/06/17 Potassium Chloride Elixir [Kaochlor Liquid] 10 meq GT DAILY 08/06/17 Ibuprofen [Motrin Ib] 200 mg GT Q4H PRN 10/27/17 Metoclopramide HCl [Metoclopramide Hydrochlor] 20 mg PEG Q8H 10/27/17 Ondansetron [Zofran Odt] 4 mg PO Q6H PRN 10/27/17 Allopurinol [Zyloprim] 100 mg PEG DAILY 03/27/18 Calcium Carbonate-Cholecalcife [Calcium 600+D3 600-400 mg-Unit] 1 tab PEG DAILY 03/27/18 Ibuprofen [Motrin Ib] 200 mg GT Q8H PRN 03/27/18 Meloxicam [Mobic] 7.5 mg GT DAILY 03/27/18 Silver Sulfadiazine [Silvadene] 1 % EX DAILY 03/27/18 White Petrolatum-Mineral Oil [Lacri-Lube S.o.p] 1 oin OP QID PRN 03/27/18 Lactobacillus [Acidophilus] 1 cap PEG TID 02/27/19 Review of Systems - Review of Systems Unable to Obtain Due To: condition Past Medical History (General) - Patient Medical History Hx Seizures: No Hx Stroke: No Hx Dementia: No Hx Asthma: No Hx of COPD: No Hx Cardiac Disorders: No Hx Congestive Heart Failure: No Hx Pacemaker: No Hx Hypertension: Yes Hx Thyroid Disease: No Hx Diabetes: No Hx Gastroesophageal Reflux: Yes Hx Renal Disease: No Hx Cancer: No Hx of HIV: No Hx Hepatitis C: No Hx MRSA: Yes - Sputum 2013 MRSA Source:: Sputum - Vaccination History Hx Tetanus, Diphtheria Vaccination: No Hx Influenza Vaccination: No Hx Pneumococcal Vaccination: Yes - Social History Hx Tobacco Use: No Hx Chewing Tobacco Use: No Hx Alcohol Use: No Hx Substance Use: No Hx Substance Use Treatment: No Hx Depression: Yes Hx Physical Abuse: No Hx Emotional Abuse: No Hx Suspected Abuse: No - Activities of Daily Living Fdc/Assisted Living (if applicable):: [facility] - Female History Patient : No Family Medical History - Family History Mother Family History: No Known Living Status: Still Living Physical Exam - Physical Exam General Appearance: Other - uncomfortable on vent Eyes, Ears, Nose, Throat Exam: other - copious mucus to mouth Neck: other - tracheostomy on vent Respiratory: rales, rhonchi Cardiovascular/Chest: tachycardia Gastrointestinal/Abdominal: non tender, soft Neurologic: other - consistent with ALS Skin Exam: normal color Progress - Progress Progress: 04/25/19 13:52 A/P-Chest Pain Abnormal EKG 1.ekg cxr cbc cmp trop blood cultures urinalysis urine culture zosyn doxycycline morphine aspirin transfer telemetry pulse ox 04/25/19 14:02 - Results/Orders Results/Orders: A/P-Chest Pain, Abnormal EKG, ALS, Respiratory Failure 1.iv aspirin cbc cmp troponin urine and blood cultures lactate Zosyn Doxycycline TRANSFER [place] EKG-sinus tachycardia non specific TW changes concern for ST depression inferior lateral leads Dr. Lopez ED Physician accepts transfer at this time Dr. St hospitalist, well known to him, who suggests ER to ER transfer Departure - Departure Clinical Impression: Sinus tachycardia, Abnormal ECG, ALS (amyotrophic lateral sclerosis) Chest pain Qualifiers: Chest pain type: unspecified Qualified Code(s): R07.9 - Chest pain, unspecified Respiratory failure Qualifiers: Chronicity: chronic Respiratory failure complication: unspecified whether with hypoxia or hypercapnia Qualified Code(s): J96.10 - Chronic respiratory failure, unspecified whether with hypoxia or hypercapnia Time of Disposition: 14:06 Disposition: Discharge to Home or Self Care Condition: Fair Departure Forms: ED Discharge - Pt. Copy, Patient Portal Self Enrollment Instructions: DI for Chest Pain Referrals: CARLO GOODWIN [Primary Care Provider] - 1-2 Weeks Home Medications: Ambulatory Orders Bisacodyl 10 mg AR DAILY PRN 12/09/15 Cyanocobalamin [Vitamin B-12 Cr] 1,000 mcg GT DAILY 12/09/15 Escitalopram Oxalate 10 mg GT DAILY 12/09/15 Ferrous Sulfate [Ferosul] 220 mg GT DAILY 12/09/15 Folic Acid 1 mg PEG DAILY 12/09/15 Gabapentin 7.5 ml GT Q8H 12/09/15 Guaifenesin 100 mg GT Q4H 12/09/15 Lidocaine 1% Pf [Xylocaine 1% PF] 2 ml INJ Q6H PRN 12/09/15 Polyethylene Glycol 3350 [Miralax] 17 gm GT DAILY 12/09/15 Riluzole 50 mg GT BID 12/09/15 Scopolamine Patch 1.5MG [Transderm-Scop Patch] 1 ea TD Q72H 12/09/15 Simethicone 80 mg GT QID 12/09/15 Tramadol HCl 100 mg GT Q4H PRN 12/09/15 Uti-Stat 30 ml GT BID 12/09/15 Alum & Mag Hydrox-Simethicone [Antacid Extra Strength An] 30 ml PEG TID PRN 08/06/17 Diphenhydramine HCl 25 mg GT Q6H PRN 08/06/17 Glycopyrrolate 2 mg GT Q6H 08/06/17 Ipratropium [place] 2.5 ml INH QID 08/06/17 Potassium Chloride Elixir [Kaochlor Liquid] 10 meq GT DAILY 08/06/17 Ibuprofen [Motrin Ib] 200 mg GT Q4H PRN 10/27/17 Metoclopramide HCl [Metoclopramide Hydrochlor] 20 mg PEG Q8H 10/27/17 Ondansetron [Zofran Odt] 4 mg PO Q6H PRN 10/27/17 Allopurinol [Zyloprim] 100 mg PEG DAILY 03/27/18 Calcium Carbonate-Cholecalcife [Calcium 600+D3 600-400 mg-Unit] 1 tab PEG DAILY 03/27/18 Ibuprofen [Motrin Ib] 200 mg GT Q8H PRN 03/27/18 Meloxicam [Mobic] 7.5 mg GT DAILY 03/27/18 Silver Sulfadiazine [Silvadene] 1 % EX DAILY 03/27/18 White Petrolatum-Mineral Oil [Lacri-Lube S.o.p] 1 oin OP QID PRN 03/27/18 Lactobacillus [Acidophilus] 1 cap PEG TID 02/27/19 Transfer to Outside Facility - Transfer Information Accepting Provider:: Dr. Diego Accepting Facility: [facility] Reason for Transfer: specialized care not available - ER TO ER
[2019-04-25] MEDS ORDERED: MORPHINE SULFATE INJ 10 MG/ML VIAL ONE (14:08)
[2019-04-25] MEDS: MORPHINE SULFATE INJ 10 MG/ML VIAL IV ONE (14:13)
[2019-04-25] MEDS ORDERED: PIPERACILLIN/TAZOBACTAM 3.375 GM VIAL IVPB ONE (14:30)
[2019-04-25] MEDS ORDERED: SODIUM CHLORIDE 0.9% 100ML 100 ML IVPB ONE (14:30)
[2019-04-25] MEDS: PIPERACILLIN/TAZOBACTAM 3.375 GM in SODIUM CHLORIDE 0.9% 100ML 100 ML IVPB ONE (14:42)
--- NOTE | 2019-04-25 14:50 | RAD ---
EXAM DESCRIPTION: Chest,1 View CLINICAL HISTORY: chest pain COMPARISON: February 27, 2019 TECHNIQUE: Single frontal view of the chest FINDINGS: Endotracheal/tracheostomy tube with distal tip projecting between the clavicular heads, 8 cm above the [place]or[place]. Cardiac silhouette shows normal heart size. Pulmonary vascularity is within normal limits. Interval improvement of opacification of the right lung compared to February 27, 2019. Blunting of the right costophrenic angle, compatible with small to moderate right-sided pleural effusion. Opacity over the right chest apex, likely representing pleural fluid. Opacity over the right lung apex and right lung base most likely represents compressive atelectasis from adjacent pleural effusion. Underlying infiltrate cannot be excluded. Left lung shows no confluent infiltrates. Left costophrenic angle is sharp. There is no pneumothorax. Included upper abdomen shows a nonspecific bowel gas pattern. Visualized osseous structures show no destructive lesions. Diffuse osteopenia. IMPRESSION: 1. Endotracheal/tracheostomy tube with distal tip projecting between the clavicular heads, 8 cm above the victorino. 2. Interval improvement of opacification of the right lung compared to February 27, 2019. 3. Blunting of the right costophrenic angle, compatible with small to moderate right-sided pleural effusion. Opacity right chest apex, likely representing pleural fluid. 4. Opacity over the right lung apex and right lung base most likely represents compressive atelectasis from adjacent pleural effusion. Underlying infiltrate cannot be excluded. 5. Other findings as above. Electronically signed by: Santiago Oconnor MD 04/25/2019 2:49 PM CDT
[2019-04-25] MEDS: ASPIRIN SUPP 600 MG SUP PR ONE (14:51)
[2019-04-25 15:23] VITALS: O2SAT 99
[2019-04-25 15:24] VITALS: BP 121/93; TEMP 96.9
== END 2019-04-25 15:41 | disposition home or self-care (01) ==
LOC: ER 13:06
DX: R07.9 Chest pain, unspecified (principal); R00.0 Tachycardia, unspecified; R94.31 Abnormal electrocardiogram [ECG] [EKG]; J96.10 Chronic respiratory failure, unspecified whether with hypoxia or hypercapnia; G12.21 Amyotrophic lateral sclerosis; K21.9 Gastro-esophageal reflux disease without esophagitis; I10 Essential (primary) hypertension; F32.9 Major depressive disorder, single episode, unspecified; Z99.11 Dependence on respirator [ventilator] status; Z79.899 Other long term (current) drug therapy; Z88.6 Allergy status to analgesic agent; Z88.8 Allergy status to other drugs, medicaments and biological substances; Z87.440 Personal history of urinary (tract) infections
CPT/HCPCS: 36415; 71045; 80053; 81001; 83605; 83880; 84484; 85007; 85025; 87040; 87086; 93005; 94002; J2270; J2543; J7050

== ENCOUNTER → 2019-05-28 | Outpatient (CLI) | payer MEDICARE, MEDICAID | LOC: GOCC 08:19 | PROVIDERS: ATTEND Internal Medicine | DX: R30.0 Dysuria (principal) ==

== ENCOUNTER 2019-06-20 18:16 | Emergency (ER) | payer MEDICARE, MEDICAID ==
[2019-06-20 18:41] VITALS: TEMP 97.3; O2SAT 100
--- NOTE | 2019-06-20 18:50 | ED.PDOC ---
History of Present Illness - General Chief Complaint: Problem Stated Complaint: catheter leaking Time Seen by Provider: 06/20/19 18:47 Source: patient, family Exam Limitations: no limitations, other - Pt has ALS - History of Present Illness Initial Comments: 53 yo M with hx of ALS now with PEG, trach, indwelling urinary catheter who presents for leaking around his urinary catheter. Pt has registered phlebotomist part time care, catheter was exchanged today, recent on three days of gentamicin for UTI infection. Family and pt denies fever, abd pain, back or flank pain. By the time of my evaluation, nursing staff has already fixed urinary catheter, it was no longer leaking, and draining well. Allergies/Adverse Reactions: Allergies Acetaminophen [From Tylenol] Allergy (Verified 02/27/19 04:56) Albuterol Allergy (Verified 12/09/15 22:32) Lidocaine Allergy (Verified 12/09/15 22:32) Home Medications: Ambulatory Orders Bisacodyl 10 mg MD DAILY PRN 12/09/15 Cyanocobalamin [Vitamin B-12 Cr] 1,000 mcg GT DAILY 12/09/15 Escitalopram Oxalate 10 mg GT DAILY 12/09/15 Ferrous Sulfate [Ferosul] 220 mg GT DAILY 12/09/15 Folic Acid 1 mg PEG DAILY 12/09/15 Gabapentin 7.5 ml GT Q8H 12/09/15 Guaifenesin 100 mg GT Q4H 12/09/15 Lidocaine 1% Pf [Xylocaine 1% PF] 2 ml INJ Q6H PRN 12/09/15 Polyethylene Glycol 3350 [Miralax] 17 gm GT DAILY 12/09/15 Riluzole 50 mg GT BID 12/09/15 Scopolamine Patch 1.5MG [Transderm-Scop Patch] 1 ea TD Q72H 12/09/15 Simethicone 80 mg GT QID 12/09/15 Tramadol HCl 100 mg GT Q4H PRN 12/09/15 Uti-Stat 30 ml GT BID 12/09/15 Alum & Mag Hydrox-Simethicone [Antacid Extra Strength An] 30 ml PEG TID PRN 08/06/17 Diphenhydramine HCl 25 mg GT Q6H PRN 08/06/17 Glycopyrrolate 2 mg GT Q6H 08/06/17 Ipratropium [place] 2.5 ml INH QID 08/06/17 Potassium Chloride Elixir [Kaochlor Liquid] 10 meq GT DAILY 08/06/17 Ibuprofen [Motrin Ib] 200 mg GT Q4H PRN 10/27/17 Metoclopramide HCl [Metoclopramide Hydrochlor] 20 mg PEG Q8H 10/27/17 Ondansetron [Zofran Odt] 4 mg PO Q6H PRN 10/27/17 Allopurinol [Zyloprim] 100 mg PEG DAILY 03/27/18 Calcium Carbonate-Cholecalcife [Calcium 600+D3 600-400 mg-Unit] 1 tab PEG DAILY 03/27/18 Ibuprofen [Motrin Ib] 200 mg GT Q8H PRN 03/27/18 Meloxicam [Mobic] 7.5 mg GT DAILY 03/27/18 Silver Sulfadiazine [Silvadene] 1 % EX DAILY 03/27/18 White Petrolatum-Mineral Oil [Lacri-Lube S.o.p] 1 oin OP QID PRN 03/27/18 Lactobacillus [Acidophilus] 1 cap PEG TID 02/27/19 Sulfamethoxazole-Trimethoprim [Bactrim Ds 800-160 mg] 1 tab PO BID #14 tab 06/20/19 Review of Systems - Review of Systems Constitutional: Denies: chills, fever EENTM: States: no symptoms reported Respiratory: States: no symptoms reported Cardiology: States: no symptoms reported Gastrointestinal/Abdominal: States: other - No flank pain. Denies: abdominal pain, diarrhea, nausea, vomiting Genitourinary: Denies: discharge, dysuria Musculoskeletal: Denies: back pain Past Medical History (General) - Patient Medical History Hx Seizures: No Hx Stroke: No Hx Dementia: No Hx Asthma: No Hx of COPD: No Hx Cardiac Disorders: No Hx Congestive Heart Failure: No Hx Pacemaker: No Hx Hypertension: Yes Hx Thyroid Disease: No Hx Diabetes: No Hx Gastroesophageal Reflux: Yes Hx Renal Disease: No Hx Cancer: No Hx of HIV: No Hx Hepatitis C: No Hx MRSA: Yes - Sputum 2014 MRSA Source:: Sputum - Vaccination History Hx Tetanus, Diphtheria Vaccination: No Hx Influenza Vaccination: No Hx Pneumococcal Vaccination: Yes - Social History Hx Tobacco Use: No Hx Chewing Tobacco Use: No Hx Alcohol Use: No Hx Substance Use: No Hx Substance Use Treatment: No Hx Depression: Yes Hx Physical Abuse: No Hx Emotional Abuse: No Hx Suspected Abuse: No - Activities of Daily Living Fpc/Assisted Living (if applicable):: [facility] - Female History Patient : No Family Medical History - Family History Mother Family History: No Known Living Status: Still Living Physical Exam - Physical Exam General Appearance: Alert, Well Developed, Well Nourished Neck: non-tender, other - Trach in place, c/d/i Cardiovascular/Respiratory: regular rate, rhythm, normal peripheral pulses, other - On vent Gastrointestinal/Abdominal: non tender, soft, no organomegaly, no pulsatile mass, other - Feeding tube in place, c/d/i Male Genital Exam: normal genitalia, other - no rashes or wounds Back Exam: no CVA tenderness Skin Exam: normal color, warm/dry Progress - Progress Progress: 06/20/19 20:04 I have explained and reviewed all results with the pt and clay grinder. Discussed at length options regarding UA findings, no recent urine culture sensitivities to guide treatment, will send another culture, in discussion with family would like an anitbx, will place on bactrim as he has done well with this in the past. Comfortable with no further workup at this time as pt is not having any symptoms. Hernandez catheter continues to drain well. I explained that emergent conditions may arise and to return to the ER for new, worsening, or any persistent conditions including but not limited to f/c, back pain, abd pain, intractable vomiting, rash. I've explained the importance of f/u for recheck. Al l questions and concerns addressed at this time. Pt and clay grinder understands and agrees with plan. Pt well appearing, NAD, is stable for discharge. Selma Bolaños MD Emergency Medicine Physician Billing Number [id number] - Results/Orders Results/Orders: 06/20/19 18:45 Mechanical Ventilation DAILY 06/20/19 19:05 Urine Culture Stat Laboratory Results - last 24 hr 06/20/19 19:05 Urine Color Yellow Urine Appearance Sl cloudy Urine pH 5.5 Ur Specific [place] 1.010 Urine Protein 30 Urine Glucose (UA) Negative Urine Ketones Negative Urine Blood Moderate H Urine Nitrite Negative Urine Bilirubin Negative Urine Urobilinogen 0.2 Ur Leukocyte Esterase Moderate H Urine RBC >50 H Urine WBC >50 H Ur Epithelial Cells 0-1 Amorphous Sediment 2+ Urine Bacteria 1+ Vital Signs - 24 hr 06/20/19 06/20/19 06/20/19 18:37 18:47 19:19 Temperature 97.3 F L Pulse Rate [ 72 70 Right Brachial] Respiratory 16 14 Rate Respiratory 16 Rate [Volume Control Data] Blood Pressure 129/71 113/77 [Right Arm] O2 Sat by Pulse 100 100 Oximetry Departure - Departure Clinical Impression: Hernandez catheter problem Qualifiers: Encounter type: initial encounter Qualified Code(s): T83.9XXA - Unspecified complication of genitourinary prosthetic device, implant and graft, initial encounter Time of Disposition: 20:02 Disposition: Discharge to Home or Self Care Health Concerns: Condition: stable Departure Forms: ED Discharge - Pt. Copy, Patient Portal Self Enrollment Instructions: DI for Urinary Tract Infection (UTI) Referrals: CARLO GOODWIN [Primary Care Provider] - 1-2 Days Prescriptions: Sulfamethoxazole-Trimethoprim [Bactrim Ds 800-160 mg] 1 tab PO BID #14 tab Home Medications: Ambulatory Orders Bisacodyl 10 mg MD DAILY PRN 12/09/15 Cyanocobalamin [Vitamin B-12 Cr] 1,000 mcg GT DAILY 12/09/15 Escitalopram Oxalate 10 mg GT DAILY 12/09/15 Ferrous Sulfate [Ferosul] 220 mg GT DAILY 12/09/15 Folic Acid 1 mg PEG DAILY 12/09/15 Gabapentin 7.5 ml GT Q8H 12/09/15 Guaifenesin 100 mg GT Q4H 12/09/15 Lidocaine 1% Pf [Xylocaine 1% PF] 2 ml INJ Q6H PRN 12/09/15 Polyethylene Glycol 3350 [Miralax] 17 gm GT DAILY 12/09/15 Riluzole 50 mg GT BID 12/09/15 Scopolamine Patch 1.5MG [Transderm-Scop Patch] 1 ea TD Q72H 12/09/15 Simethicone 80 mg GT QID 12/09/15 Tramadol HCl 100 mg GT Q4H PRN 12/09/15 Uti-Stat 30 ml GT BID 12/09/15 Alum & Mag Hydrox-Simethicone [Antacid Extra Strength An] 30 ml PEG TID PRN 08/06/17 Diphenhydramine HCl 25 mg GT Q6H PRN 08/06/17 Glycopyrrolate 2 mg GT Q6H 08/06/17 Ipratropium [place] 2.5 ml INH QID 08/06/17 Potassium Chloride Elixir [Kaochlor Liquid] 10 meq GT DAILY 08/06/17 Ibuprofen [Motrin Ib] 200 mg GT Q4H PRN 10/27/17 Metoclopramide HCl [Metoclopramide Hydrochlor] 20 mg PEG Q8H 10/27/17 Ondansetron [Zofran Odt] 4 mg PO Q6H PRN 10/27/17 Allopurinol [Zyloprim] 100 mg PEG DAILY 03/27/18 Calcium Carbonate-Cholecalcife [Calcium 600+D3 600-400 mg-Unit] 1 tab PEG DAILY 03/27/18 Ibuprofen [Motrin Ib] 200 mg GT Q8H PRN 03/27/18 Meloxicam [Mobic] 7.5 mg GT DAILY 03/27/18 Silver Sulfadiazine [Silvadene] 1 % EX DAILY 03/27/18 White Petrolatum-Mineral Oil [Lacri-Lube S.o.p] 1 oin OP QID PRN 03/27/18 Lactobacillus [Acidophilus] 1 cap PEG TID 02/27/19 Sulfamethoxazole-Trimethoprim [Bactrim Ds 800-160 mg] 1 tab PO BID #14 tab 06/20/19 Additional Instructions: Follow up: [facility] As needed, if symptoms worsen
[2019-06-20 20:27] VITALS: BP 114/65
== END 2019-06-20 20:38 | disposition home or self-care (01) ==
LOC: ER 18:16
DX: T83.9XXA Unspecified complication of genitourinary prosthetic device, implant and graft, initial encounter (principal); I10 Essential (primary) hypertension; K21.9 Gastro-esophageal reflux disease without esophagitis; F32.9 Major depressive disorder, single episode, unspecified; Z79.899 Other long term (current) drug therapy; Z93.0 Tracheostomy status; Z88.6 Allergy status to analgesic agent; Z88.8 Allergy status to other drugs, medicaments and biological substances; Z87.440 Personal history of urinary (tract) infections

== ENCOUNTER → 2019-07-30 | Outpatient (CLI) | payer MEDICARE, MEDICAID | LOC: GOCC 00:55 | PROVIDERS: ATTEND Internal Medicine | DX: N39.0 Urinary tract infection, site not specified (principal) ==

== ENCOUNTER 2019-08-02 13:46 | Emergency (ER) | payer MEDICARE, OTHER ==
--- NOTE | 2019-08-02 14:47 | RAD ---
EXAM: Chest,1 View CLINICAL INDICATION: Cough COMPARISON: 04/25/2019 FINDINGS: A single view of the chest was obtained. The heart size is normal. The pulmonary vascularity is unremarkable. A tracheostomy is noted. There are infiltrates in the right lung suspicious for pneumonia most prominent in the right upper lobe. The left lung is clear except for a few foci of atelectasis. There is no pneumothorax. IMPRESSION: Right-sided pulmonary infiltrates, suspicious for pneumonia. Electronically signed by: Rey Welch MD 08/02/2019 2:45 PM [employer]
--- NOTE | 2019-08-02 15:00 | ED.PDOC ---
History of Present Illness - General Chief Complaint: General Stated Complaint: drop in hemoglobin Time Seen by Provider: 08/02/19 14:10 Source: patient Exam Limitations: no limitations - History of Present Illness Initial Comments: the patient's 53-year-old male presenting to the emergency room secondary to primarily having a slightly low hemoglobin and hematocrit when compared to blood work from 2 weeks ago. When reviewing his labs and total however this does appear to be about average for him. He has had significantly lower levels in the past and has had transfusions. Family is uncertain what the source of the anemia he has. He does have large diverticuli when looking back at his previous CT scans. He is pleasant and cooperative. He is on them long-term. Family also reports that he has been a little bit down a little more sluggish over the last 2 weeks. No real fever. He has had recurrent pneumonias in the past and he is on a ventilator. He is ventilating well with his current settings. He is in no respiratory distress.he was mainly sent up here for concern for the anemia. No evidence of any active bleeding. No blood thinners. Timing/Duration: unsure Severity: mild Improving Factors: nothing Worsening Factors: nothing Associated Symptoms: denies symptoms Allergies/Adverse Reactions: Allergies Acetaminophen [From Tylenol] Allergy (Verified 02/27/19 04:56) Albuterol Allergy (Verified 12/09/15 22:32) Lidocaine Allergy (Verified 12/09/15 22:32) Home Medications: Ambulatory Orders Bisacodyl 10 mg CO DAILY PRN 12/09/15 Cyanocobalamin [Vitamin B-12 Cr] 1,000 mcg GT DAILY 12/09/15 Escitalopram Oxalate 10 mg GT DAILY 12/09/15 Ferrous Sulfate [Ferosul] 220 mg GT DAILY 12/09/15 Folic Acid 1 mg PEG DAILY 12/09/15 Gabapentin 7.5 ml GT Q8H 12/09/15 Guaifenesin 100 mg GT Q4H 12/09/15 Lidocaine 1% Pf [Xylocaine 1% PF] 2 ml INJ Q6H PRN 12/09/15 Polyethylene Glycol 3350 [Miralax] 17 gm GT DAILY 12/09/15 Riluzole 50 mg GT BID 12/09/15 Scopolamine Patch 1.5MG [Transderm-Scop Patch] 1 ea TD Q72H 12/09/15 Simethicone 80 mg GT QID 12/09/15 Tramadol HCl 100 mg GT Q4H PRN 12/09/15 Uti-Stat 30 ml GT BID 12/09/15 Alum & Mag Hydrox-Simethicone [Antacid Extra Strength An] 30 ml PEG TID PRN 08/06/17 Diphenhydramine HCl 25 mg GT Q6H PRN 08/06/17 Glycopyrrolate 2 mg GT Q6H 08/06/17 Ipratropium [place] 2.5 ml INH QID 08/06/17 Potassium Chloride Elixir [Kaochlor Liquid] 10 meq GT DAILY 08/06/17 Ibuprofen [Motrin Ib] 200 mg GT Q4H PRN 10/27/17 Metoclopramide HCl [Metoclopramide Hydrochlor] 20 mg PEG Q8H 10/27/17 Ondansetron [Zofran Odt] 4 mg PO Q6H PRN 10/27/17 Allopurinol [Zyloprim] 100 mg PEG DAILY 03/27/18 Calcium Carbonate-Cholecalcife [Calcium 600+D3 600-400 mg-Unit] 1 tab PEG DAILY 03/27/18 Ibuprofen [Motrin Ib] 200 mg GT Q8H PRN 03/27/18 Meloxicam [Mobic] 7.5 mg GT DAILY 03/27/18 Silver Sulfadiazine [Silvadene] 1 % EX DAILY 03/27/18 White Petrolatum-Mineral Oil [Lacri-Lube S.o.p] 1 oin OP QID PRN 03/27/18 Lactobacillus [Acidophilus] 1 cap PEG TID 02/27/19 Sulfamethoxazole-Trimethoprim [Bactrim Ds 800-160 mg] 1 tab PO BID #14 tab 06/20/19 levoFLOXacin [Levaquin] 500 mg GT DAILY #6 tab 08/02/19 Review of Systems - Review of Systems Constitutional: States: malaise EENTM: States: nose congestion Respiratory: States: cough Cardiology: States: no symptoms reported Gastrointestinal/Abdominal: States: no symptoms reported Genitourinary: States: no symptoms reported Musculoskeletal: States: no symptoms reported Skin: States: no symptoms reported Neurological: States: no symptoms reported Endocrine: States: no symptoms reported All other Systems: No Change from Baseline Past Medical History (General) - Patient Medical History Hx Seizures: No Hx Stroke: No Hx Dementia: No Hx Asthma: No Hx of COPD: No Hx Cardiac Disorders: No Hx Congestive Heart Failure: No Hx Pacemaker: No Hx Hypertension: Yes Hx Thyroid Disease: No Hx Diabetes: No Hx Gastroesophageal Reflux: Yes Hx Renal Disease: No Hx Cancer: No Hx of HIV: No Hx Hepatitis C: No Hx MRSA: Yes - Sputum 2013 MRSA Source:: Sputum Surgical History: appendectomy - Vaccination History Hx Tetanus, Diphtheria Vaccination: No Hx Influenza Vaccination: No Hx Pneumococcal Vaccination: Yes - Social History Hx Tobacco Use: No Hx Chewing Tobacco Use: No Hx Alcohol Use: No Hx Substance Use: No Hx Substance Use Treatment: No Hx Depression: Yes Hx Physical Abuse: No Hx Emotional Abuse: No Hx Suspected Abuse: No - Activities of Daily Living Senior Care/Assisted Living (if applicable):: [facility] - Female History Patient : No Family Medical History - Family History Mother Family History: No Known Living Status: Still Living Physical Exam - Physical Exam General Appearance: Alert, Comfortable, No apparent distress Eye Exam: bilateral normal Ears, Nose, Throat: hearing grossly normal, normal pharynx, nasal congestion Neck: full range of motion - tracheostomy is in place Respiratory: no respiratory distress, no accessory muscle use, other - mild bibasilar Rales and scattered mild rhonchi Cardiovascular/Chest: normal peripheral pulses, no edema, other - regular rate Peripheral Pulses: radial,right: 2+, radial,left: 2+, dorsalis pedis,right: 2+, dorsalis pedis,left: 2+ Gastrointestinal/Abdominal: non tender, soft Back Exam: no CVA tenderness, no vertebral tenderness Extremity: normal range of motion, non-tender, normal inspection, no pedal edema - e does have chronic edema due to decreased movement, normal capillary refill Neurologic: pastry artist II-XII nml as tested, alert, normal mood/affect, oriented x 3 Skin Exam: normal color Comments: Vital Signs - 24 hr 08/02/19 08/02/19 14:16 14:36 Temperature 96.7 F L Pulse Rate [ 64 Right Brachial] Respiratory 16 16 Rate Blood Pressure 108/70 [Right Arm] O2 Sat by Pulse 100 Oximetry Progress - Progress Progress: 08/02/19 15:01 the patient is a 53-year-old male that is ventilator dependent being brought up secondary primarily to concern for anemia. Upon review of the patient's records, he actually appears to be about baseline from the standpoint of his hemoglobin and hematocrit when looking back to 2017. His most likely source for the anemia is the diverticuli. No evidence of any active bleeding. Additionally in the workup, it was found that the patient appears to have a mild right upper lobe pneumonia. This is likely what has been dragging the patient down over the last couple of weeks. He is ventilating well without any difficulty. Additionally he does have a small catheter associated urinary tract infection. He is going to be placed on Levaquin. Urine culture is being done. The patient will be placed on 7 days of antibiotics. He does need to follow-up with his facility doctor. In regards to the chronic anemia, and anemia panel has been sent off here. It can be requested by his primary care doctor there in about a week for further management. ER warnings were given for any worsening. shana weiss [id number] - Results/Orders Results/Orders: Laboratory Tests 08/02/19 14:30 Urine Color Yellow Urine Appearance Cloudy Urine pH 7.0 Ur Specific [place] 1.015 Urine Protein 30 Urine Glucose (UA) Negative Urine Ketones Negative Urine Blood Moderate H Urine Nitrite Negative Urine Bilirubin Negative Urine Urobilinogen 0.2 Ur Leukocyte Esterase Large H Urine RBC 5-10 H Urine WBC >50 H Ur Epithelial Cells 3-5 Urine Bacteria 2+ H Urine Mucus Trace rapid flu was negative. Departure - Departure Clinical Impression: Ventilator associated pneumonia, Chronic anemia Urinary catheter infection Qualifiers: Encounter type: initial encounter Qualified Code(s): T83.518A - Infection and inflammatory reaction due to other urinary catheter, initial encounter Disposition: Discharge to SNF Condition: Fair Departure Forms: ED Discharge - Pt. Copy, Patient Portal Self Enrollment Diet: regular diet Activity: increase activity as tolerated Referrals: CARLO GOODWIN [Primary Care Provider] - 1-2 Weeks Prescriptions: levoFLOXacin [Levaquin] 500 mg GT DAILY #6 tab Home Medications: Ambulatory Orders Bisacodyl 10 mg CO DAILY PRN 12/09/15 Cyanocobalamin [Vitamin B-12 Cr] 1,000 mcg GT DAILY 12/09/15 Escitalopram Oxalate 10 mg GT DAILY 12/09/15 Ferrous Sulfate [Ferosul] 220 mg GT DAILY 12/09/15 Folic Acid 1 mg PEG DAILY 12/09/15 Gabapentin 7.5 ml GT Q8H 12/09/15 Guaifenesin 100 mg GT Q4H 12/09/15 Lidocaine 1% Pf [Xylocaine 1% PF] 2 ml INJ Q6H PRN 12/09/15 Polyethylene Glycol 3350 [Miralax] 17 gm GT DAILY 12/09/15 Riluzole 50 mg GT BID 12/09/15 Scopolamine Patch 1.5MG [Transderm-Scop Patch] 1 ea TD Q72H 12/09/15 Simethicone 80 mg GT QID 12/09/15 Tramadol HCl 100 mg GT Q4H PRN 12/09/15 Uti-Stat 30 ml GT BID 12/09/15 Alum & Mag Hydrox-Simethicone [Antacid Extra Strength An] 30 ml PEG TID PRN 08/06/17 Diphenhydramine HCl 25 mg GT Q6H PRN 08/06/17 Glycopyrrolate 2 mg GT Q6H 08/06/17 Ipratropium [place] 2.5 ml INH QID 08/06/17 Potassium Chloride Elixir [Kaochlor Liquid] 10 meq GT DAILY 08/06/17 Ibuprofen [Motrin Ib] 200 mg GT Q4H PRN 10/27/17 Metoclopramide HCl [Metoclopramide Hydrochlor] 20 mg PEG Q8H 10/27/17 Ondansetron [Zofran Odt] 4 mg PO Q6H PRN 10/27/17 Allopurinol [Zyloprim] 100 mg PEG DAILY 03/27/18 Calcium Carbonate-Cholecalcife [Calcium 600+D3 600-400 mg-Unit] 1 tab PEG DAILY 03/27/18 Ibuprofen [Motrin Ib] 200 mg GT Q8H PRN 03/27/18 Meloxicam [Mobic] 7.5 mg GT DAILY 03/27/18 Silver Sulfadiazine [Silvadene] 1 % EX DAILY 03/27/18 White Petrolatum-Mineral Oil [Lacri-Lube S.o.p] 1 oin OP QID PRN 03/27/18 Lactobacillus [Acidophilus] 1 cap PEG TID 02/27/19 Sulfamethoxazole-Trimethoprim [Bactrim Ds 800-160 mg] 1 tab PO BID #14 tab 06/20/19 levoFLOXacin [Levaquin] 500 mg GT DAILY #6 tab 08/02/19 Additional Instructions: the patient is a 53-year-old male that is ventilator dependent being brought up secondary primarily to concern for anemia. Upon review of the patient's records, he actually appears to be about baseline from the standpoint of his hemoglobin and hematocrit when looking back to 2016. His most likely source for the anemia is the diverticuli. No evidence of any active bleeding. Additionally in the workup, it was found that the patient appears to have a mild right upper lobe pneumonia. This is likely what has been dragging the patient down over the last couple of weeks. He is ventilating well without any difficulty. Additionally he does have a small catheter associated urinary tract infection. He is going to be placed on Levaquin. Urine culture is being done. The patient will be placed on 7 days of antibiotics. He does need to follow- up with his facility doctor. In regards to the chronic anemia, and anemia panel has been sent off here. It can be requested by his primary care doctor there in about a week for further management. ER warnings were given for any worsening.
[2019-08-02] MEDS: levoFLOXacin 500 MG TAB GT ONE (15:19)
[2019-08-02 16:05] VITALS: BP 104/65; TEMP 95.8; O2SAT 97
== END 2019-08-02 16:05 ==
LOC: ER 13:46
DX: T83.518A Infection and inflammatory reaction due to other urinary catheter, initial encounter (principal); D64.9 Anemia, unspecified; J95.851 Ventilator associated pneumonia; F32.9 Major depressive disorder, single episode, unspecified; K21.9 Gastro-esophageal reflux disease without esophagitis; I10 Essential (primary) hypertension; Z99.11 Dependence on respirator [ventilator] status; Z86.14 Personal history of Methicillin resistant Staphylococcus aureus infection; Z79.899 Other long term (current) drug therapy; Z88.6 Allergy status to analgesic agent; Z88.8 Allergy status to other drugs, medicaments and biological substances; Z87.01 Personal history of pneumonia (recurrent)

== ENCOUNTER 2019-09-11 22:47 | Emergency (ER) | payer MEDICARE, OTHER ==
--- NOTE | 2019-09-11 23:24 | RAD ---
EXAM: XR Chest, 1 View CLINICAL HISTORY: The patient is 53 years old and is Male; vent pneumonia TECHNIQUE: Frontal view of the chest. COMPARISON: Chest radiograph August 02, 2019 FINDINGS: LUNGS: Interval worsening in the opacification of the right lung is present. The left lung is relatively clear. PLEURAL SPACE: Blunting of right costophrenic angle is noted. No pneumothorax. HEART: The cardiac silhouette is shifted to the right. MEDIASTINUM: Unremarkable. BONES/JOINTS: There are degenerative changes of the bones. TUBES, LINES AND DEVICES: Tracheostomy tube is in place. IMPRESSION: Interval worsening opacification of the right lung with suggest a combination of infection, atelectasis, and likely pleural effusion. Electronically signed by: Bonita Jules MD 09/11/2019 11:22 PM [facility]
[2019-09-11] MEDS ORDERED: POTASSIUM CHLORIDE ELIXIR 20 MEQ/15 ML UD GT ONE (23:37)
[2019-09-11] MEDS ORDERED: SODIUM CHLORIDE 0.9% NEB 3 ML VIAL ONE (23:44)
--- NOTE | 2019-09-12 00:20 | CT ---
EXAM: CT CHEST WITHOUT IV CONTRAST HISTORY: eval rt sided infiltrate/effusion COMPARISON: None Available TECHNIQUE: Multiple helical axial tomographic images were obtained of the chest without intravenous contrast. Coronal and sagittal reformatted images were obtained. This exam was performed according to our departmental dose-optimization program, which includes automated exposure control, adjustment of the mA and/or kV according to patient size and/or use of iterative reconstruction technique. FINDINGS: Thyroid gland: unremarkable. Axilla: unremarkable. Aorta: No evidence of aortic aneurysm. Mediastinum: There are a few enlarged mediastinal lymph nodes with largest right lower paratracheal node measuring up to 2.3 cm. Heart: Heart is normal in size. Lungs/airways: There are opacities in the right upper and lower lobes with air bronchograms suggestive of consolidations with associated volume loss which may reflect element of atelectasis. Consolidative changes in the left lower lobe are present. There are patchy groundglass opacities in the right upper and left lower lobes. Tracheostomy tube is present. There is a 1.3 cm irregular nodular opacity in the left upper lobe laterally abutting the pleural surface (series 4, image 52). Secretions within the right middle and lower lobe bronchi are present. Pleural spaces: There are trace bilateral pleural effusions. There is suggestion of right-sided pleural thickening. No pneumothorax. Osseous: Unremarkable. Soft tissues: Unremarkable. Visualized abdomen: Unremarkable. IMPRESSION: 1. Consolidative changes and groundglass opacities in both lungs concerning for pneumonia. 2. Trace bilateral pleural effusions. Possible pleural thickening on the right which can be seen with loculated or complex effusion such as empyema, however of uncertain chronicity. 3. Left upper lobe 1.3 cm nodular density which could be infectious or inflammatory, however consider a three-month interval follow-up chest CT to exclude malignancy. 4. Bronchial secretions in the right middle and lower lobes. Volume loss in the right lung suggestive of underlying component of atelectasis. 5. Enlarged mediastinal lymph nodes which are likely reactive. Electronically signed by: Charly Salas MD 09/12/2019 12:18 AM RATE REVIEWER
[2019-09-12] MEDS ORDERED: SODIUM CHLORIDE 0.9% NEB 3 ML VIAL ONE (00:23)
[2019-09-12] MEDS ORDERED: AMOXICILLIN & POT CLAVULANATE 875 MG TAB GT ONE (00:35)
[2019-09-12] MEDS ORDERED: CIPROFLOXACIN 500 MG TAB GT ONE (00:35)
--- NOTE | 2019-09-12 00:43 | ED.PDOC ---
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 The patient has a known pneumonia. He was placed on doxycycline about 2 days ago. This is certainly a reasonable antibiotic choice. He is still having fevers so his had him brought up here. The patient actually looks pretty good. He is oxygenating well on 40% FiO2. He does have coarse breath sounds bilaterally. The patient has chronic elevation of right hemidiaphragm as well as chronic scarring to the right lung field. There is a question of a chronic effusion on that side. No sore throat. No runny nose. Cough is certainly decreased from normal given his chronic condition. Timing/Duration: 1 week Severity: mild Improving Factors: nothing Worsening Factors: nothing Associated Symptoms: cough, fever/chills Allergies/Adverse Reactions: Allergies Acetaminophen [From Tylenol] Allergy (Verified 09/11/19 23:06) Albuterol Allergy (Verified 12/09/15 22:32) Lidocaine Allergy (Verified 12/09/15 22:32) Home Medications: Ambulatory Orders Bisacodyl 10 mg [place] DAILY PRN 12/09/15 Cyanocobalamin [Vitamin B-12 Cr] 1,000 mcg GT DAILY 12/09/15 Escitalopram Oxalate 10 mg GT DAILY 12/09/15 Ferrous Sulfate [Ferosul] 220 mg GT DAILY 12/09/15 Folic Acid 1 mg PEG DAILY 12/09/15 Gabapentin 7.5 ml GT Q8H 12/09/15 Guaifenesin 100 mg GT Q4H 12/09/15 Lidocaine 1% Pf [Xylocaine 1% PF] 2 ml INJ Q6H PRN 12/09/15 Polyethylene Glycol 3350 [Miralax] 17 gm GT DAILY 12/09/15 Riluzole 50 mg GT BID 12/09/15 Scopolamine Patch 1.5MG [Transderm-Scop Patch] 1 ea TD Q72H 12/09/15 Simethicone 80 mg GT QID 12/09/15 Tramadol HCl 100 mg GT Q4H PRN 12/09/15 Uti-Stat 30 ml GT BID 12/09/15 Alum & Mag Hydrox-Simethicone [Antacid Extra Strength An] 30 ml PEG TID PRN 08/06/17 Diphenhydramine HCl 25 mg GT Q6H PRN 08/06/17 Glycopyrrolate 2 mg GT Q6H 08/06/17 Ipratropium [place] 2.5 ml INH QID 08/06/17 Potassium Chloride Elixir [Kaochlor Liquid] 10 meq GT DAILY 08/06/17 Ibuprofen [Motrin Ib] 200 mg GT Q4H PRN 10/27/17 Metoclopramide HCl [Metoclopramide Hydrochlor] 20 mg PEG Q8H 10/27/17 Ondansetron [Zofran Odt] 4 mg PO Q6H PRN 10/27/17 Allopurinol [Zyloprim] 100 mg PEG DAILY 03/27/18 Calcium Carbonate-Cholecalcife [Calcium 600+D3 600-400 mg-Unit] 1 tab PEG DAILY 03/27/18 Ibuprofen [Motrin Ib] 200 mg GT Q8H PRN 03/27/18 Meloxicam [Mobic] 7.5 mg GT DAILY 03/27/18 Silver Sulfadiazine [Silvadene] 1 % EX DAILY 03/27/18 White Petrolatum-Mineral Oil [Lacri-Lube S.o.p] 1 oin OP QID PRN 03/27/18 Lactobacillus [Acidophilus] 1 cap PEG TID 02/27/19 Sulfamethoxazole-Trimethoprim [Bactrim Ds 800-160 mg] 1 tab PO BID #14 tab 06/20/19 levoFLOXacin [Levaquin] 500 mg GT DAILY #6 tab 08/02/19 Amoxicillin & Pot Clavulanate [Augmentin Tab] 875 mg PO BID #24 tab 09/12/19 Ciprofloxacin [Cipro] 500 mg PO BID #24 tab 09/12/19 Review of Systems - Review of Systems Review of Systems: 09/12/19 00:42 For new symptoms only: Constitutional: States: fever, malaise EENTM: States: no symptoms reported Respiratory: States: cough Cardiology: States: no symptoms reported Gastrointestinal/Abdominal: States: no symptoms reported Genitourinary: States: no symptoms reported Musculoskeletal: States: no symptoms reported - Chronic problems Skin: States: no symptoms reported Neurological: States: no symptoms reported - Chronic problems Endocrine: States: no symptoms reported All other Systems: No Change from Baseline Past Medical History (General) - Patient Medical History Hx Seizures: No Hx Stroke: No Hx Dementia: No Hx Asthma: No Hx of COPD: No Hx Cardiac Disorders: No Hx Congestive Heart Failure: No Hx Pacemaker: No Hx Hypertension: Yes Hx Thyroid Disease: No Hx Diabetes: No Hx Gastroesophageal Reflux: Yes Hx Renal Disease: No Hx Cancer: No Hx of HIV: No Hx Hepatitis C: No Hx MRSA: Yes - Sputum 2013 MRSA Source:: Sputum Surgical History: noncontributory - Vaccination History Hx Tetanus, Diphtheria Vaccination: No Hx Influenza Vaccination: No Hx Pneumococcal Vaccination: Yes - Social History Hx Tobacco Use: No Hx Chewing Tobacco Use: No Hx Alcohol Use: No Hx Substance Use: No Hx Substance Use Treatment: No Hx Depression: Yes Hx Physical Abuse: No Hx Emotional Abuse: No Hx Suspected Abuse: No - Activities of Daily Living [facility] (if applicable):: [facility] [place] - Female History Patient : No Family Medical History - Family History Mother Family History: No Known Living Status: Still Living Physical Exam - Physical Exam General Appearance: Agitated, Alert, Comfortable, No apparent distress Eye Exam: bilateral normal Ears, Nose, Throat: hearing grossly normal, normal pharynx Neck: full range of motion - Tracheostomy in place, supple Respiratory: no respiratory distress, no accessory muscle use, rales - Coarse breath sounds diffusely. Fair air movement., rhonchi Cardiovascular/Chest: normal peripheral pulses, no edema, other - Regular rate Peripheral Pulses: radial,right: 2+, radial,left: 2+ Gastrointestinal/Abdominal: non tender, soft Rectal Exam: deferred Extremity: no calf tenderness, normal capillary refill, other - Chronic changes related to ALS Neurologic: director video II-XII nml as tested, alert, normal mood/affect, oriented x 3 Skin Exam: normal color Comments: Vital Signs - 24 hr 09/11/19 22:48 Temperature 100.2 F H Pulse Rate [ 93 H monitor] Respiratory 16 Rate Blood Pressure 136/87 [Left Arm] O2 Sat by Pulse 99 Oximetry 09/11/19 22:45 BLOOD CULTURE Stat 09/11/19 23:47 SPUTUM CULTURE Stat Laboratory Results - last 24 hr 09/11/19 09/11/19 09/11/19 23:00 23:00 23:00 WBC 12.1 H RBC 3.41 L Hgb 10.9 L Hct 32.2 L MCV 94.5 H MCH 32.0 H MCHC 33.8 RDW 15.1 H Plt Count 206 MPV 7.0 L Absolute Neuts (auto) 9.60 H Absolute Lymphs (auto) 1.70 Absolute Monos (auto) 0.70 Absolute Eos (auto) 0.10 Absolute Basos (auto) 0.10 Neutrophils % 79.1 H Lymphocytes % 13.7 L Monocytes % 5.8 Eosinophils % 0.7 L Basophils % 0.7 Sodium 133 L Potassium 3.2 L Chloride 105 Carbon Dioxide 16 L Anion Gap 15.2 BUN 13 Creatinine < 0.40 L BUN/Creatinine Ratio 32.0 H Random Glucose 143 H Serum Osmolality 269.0 L Lactic Acid 1.0 Calcium 9.0 Total Bilirubin 1.2 H AST 19 ALT 15 Alkaline Phosphatase 268 H Creatine Kinase CK-MB (CK-2) CK-MB (CK-2) % Troponin I B-Natriuretic Peptide Serum Total Protein 8.2 Albumin 3.1 L Globulin 5.1 H Albumin/Globulin Ratio 0.6 L 09/11/19 23:00 WBC RBC Hgb Hct MCV MCH MCHC RDW Plt Count MPV Absolute Neuts (auto) Absolute Lymphs (auto) Absolute Monos (auto) Absolute Eos (auto) Absolute Basos (auto) Neutrophils % Lymphocytes % Monocytes % Eosinophils % Basophils % Sodium Potassium Chloride Carbon Dioxide Anion Gap BUN Creatinine BUN/Creatinine Ratio Random Glucose Serum Osmolality Lactic Acid Calcium Total Bilirubin AST ALT Alkaline Phosphatase Creatine Kinase 13 L CK-MB (CK-2) 1.1 CK-MB (CK-2) % Not Reportable Troponin I 0.02 B-Natriuretic Peptide 11.2 Serum Total Protein Albumin Globulin Albumin/Globulin Ratio Chest x-ray is consistent with right-sided pneumonia. CT scan of the chest without contrast shows significant right-sided pneumonia with small effusion. He also has a mild left-sided pneumonia more towards the apex. There is also a 1.3 cm spiculated area to the left pleural apex. This will need to be followed up. No pneumothorax. He does have significant loss of volume on the right due to chronic atelectatic changes. Progress - Progress Progress: 09/12/19 00:46 The patient is a 53-year-old 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 Sputum and blood cultures have been done. White blood cell count is 12,000. He is oxygenating well on 40% FiO2 at this point and in no acute distress. He is already on doxycycline which is a good antibiotic choice. Given the fact that this is a recurrent pneumonia we are going to add Augmentin and ciprofloxacin to the medication regimen. The regimen can be reduced once the culture is back. Obviously if the patient is worsening in any way then he will need a repeat evaluation and possibly inpatient care with IV antibiotics. Consideration could be given to saline nebulizer treatments to help thin secretions. First doses of ciprofloxacin and Augmentin were given here tonight. Follow-up with facility doctor in 1 to 2 days. The patient also did have a mildly low potassium and was given a dose of potassium here. He needs to have this rechecked in a week or 2. shana weiss [id number] Departure - Departure Clinical Impression: Ventilator associated pneumonia, Hypokalemia Disposition: Discharge to SNF Condition: Fair Departure Forms: ED Discharge - Pt. Copy, Patient Portal Self Enrollment Diet: other Activity: increase activity as tolerated Referrals: CARLO GOODWIN [Primary Care Provider] - 1-2 Days Prescriptions: Amoxicillin & Pot Clavulanate [Augmentin Tab] 875 mg PO BID #24 tab Ciprofloxacin [Cipro] 500 mg PO BID #24 tab Home Medications: Ambulatory Orders Bisacodyl 10 mg [place] DAILY PRN 12/09/15 Cyanocobalamin [Vitamin B-12 Cr] 1,000 mcg GT DAILY 12/09/15 Escitalopram Oxalate 10 mg GT DAILY 12/09/15 Ferrous Sulfate [Ferosul] 220 mg GT DAILY 12/09/15 Folic Acid 1 mg PEG DAILY 12/09/15 Gabapentin 7.5 ml GT Q8H 12/09/15 Guaifenesin 100 mg GT Q4H 12/09/15 Lidocaine 1% Pf [Xylocaine 1% PF] 2 ml INJ Q6H PRN 12/09/15 Polyethylene Glycol 3350 [Miralax] 17 gm GT DAILY 12/09/15 Riluzole 50 mg GT BID 12/09/15 Scopolamine Patch 1.5MG [Transderm-Scop Patch] 1 ea TD Q72H 12/09/15 Simethicone 80 mg GT QID 12/09/15 Tramadol HCl 100 mg GT Q4H PRN 12/09/15 Uti-Stat 30 ml GT BID 12/09/15 Alum & Mag Hydrox-Simethicone [Antacid Extra Strength An] 30 ml PEG TID PRN 08/06/17 Diphenhydramine HCl 25 mg GT Q6H PRN 08/06/17 Glycopyrrolate 2 mg GT Q6H 08/06/17 Ipratropium [place] 2.5 ml INH QID 08/06/17 Potassium Chloride Elixir [Kaochlor Liquid] 10 meq GT DAILY 08/06/17 Ibuprofen [Motrin Ib] 200 mg GT Q4H PRN 10/27/17 Metoclopramide HCl [Metoclopramide Hydrochlor] 20 mg PEG Q8H 10/27/17 Ondansetron [Zofran Odt] 4 mg PO Q6H PRN 10/27/17 Allopurinol [Zyloprim] 100 mg PEG DAILY 03/27/18 Calcium Carbonate-Cholecalcife [Calcium 600+D3 600-400 mg-Unit] 1 tab PEG DAILY 03/27/18 Ibuprofen [Motrin Ib] 200 mg GT Q8H PRN 03/27/18 Meloxicam [Mobic] 7.5 mg GT DAILY 03/27/18 Silver Sulfadiazine [Silvadene] 1 % EX DAILY 03/27/18 White Petrolatum-Mineral Oil [Lacri-Lube S.o.p] 1 oin OP QID PRN 03/27/18 Lactobacillus [Acidophilus] 1 cap PEG TID 02/27/19 Sulfamethoxazole-Trimethoprim [Bactrim Ds 800-160 mg] 1 tab PO BID #14 tab 06/20/19 levoFLOXacin [Levaquin] 500 mg GT DAILY #6 tab 08/02/19 Amoxicillin & Pot Clavulanate [Augmentin Tab] 875 mg PO BID #24 tab 09/12/19 Ciprofloxacin [Cipro] 500 mg PO BID #24 tab 09/12/19 Additional Instructions: The patient is a 53-year-old 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 Sputum and blood cultures have been done. White blood cell count is 12,000. He is oxygenating well on 40% FiO2 at this point and in no acute distress. He is already on doxycycline which is a good antibiotic choice. Given the fact that this is a recurrent pneumonia we are going to add Augmentin and ciprofloxacin to the medication regimen. The regimen can be reduced once the culture is back. Obviously if the patient is worsening in any way then he will need a repeat evaluation and possibly inpatient care with IV antibiotics. Consideration could be given to saline nebulizer treatments to help thin secretions. First doses of ciprofloxacin and Augmentin were given here tonight. Follow-up with facility doctor in 1 to 2 days. The patient also did have a mildly low potassium and was given a dose of potassium here. He needs to have this rechecked in a week or 2.
[2019-09-12 01:01] VITALS: BP 103/71; TEMP 99.7; O2SAT 99
== END 2019-09-12 01:09 ==
LOC: ER 22:47
DX: J95.851 Ventilator associated pneumonia (principal); E87.6 Hypokalemia; I10 Essential (primary) hypertension; K21.9 Gastro-esophageal reflux disease without esophagitis; F32.9 Major depressive disorder, single episode, unspecified; Z86.14 Personal history of Methicillin resistant Staphylococcus aureus infection; Z88.6 Allergy status to analgesic agent; Z88.8 Allergy status to other drugs, medicaments and biological substances; Z79.899 Other long term (current) drug therapy
CPT/HCPCS: 36415; 71045; 71250; 80053; 82550; 82553; 83605; 83880; 84484; 85025; 87040; 87070; 87502; 94002; 94640; A4216

== ENCOUNTER 2019-10-21 19:55 | Emergency (ER) | payer MEDICARE, OTHER ==
[2019-10-21] MEDS ORDERED: IPRATROPIUM BROMIDE NEBS 0.5 MG/2.5 ML VIAL NEB ONE (20:18)
--- NOTE | 2019-10-21 21:21 | RAD ---
EXAM DESCRIPTION: Chest,1 View CLINICAL HISTORY:53 years Male, moderate elevated bp Comparison: Chest radiograph dated September 11, 2019 FINDINGS/IMPRESSION: Unchanged position of tracheostomy tube. Continued evidence of advanced right lung opacity and volume loss. Improved aeration of the left lung base. Right pleural effusion. No pneumothorax. Cardiomediastinal silhouette is unchanged. No acute osseous abnormality. Diffuse osteopenia. Electronically signed by: Armani Goncalves DO 10/21/2019 9:19 PM CDT
[2019-10-21] MEDS ORDERED: POTASSIUM CHLORIDE ELIXIR 20 MEQ/15 ML UD GT ONE (22:03)
--- NOTE | 2019-10-21 22:06 | ED.PDOC ---
History of Present Illness - General Chief Complaint: Blood Pressure Problem Stated Complaint: elevated BP Time Seen by Provider: 10/21/19 19:57 Source: patient, family, EMS, half-way records Exam Limitations: clinical condition - History of Present Illness Initial Comments: The patient is a 53-year-old male with ALS well-known to the emergency room here. He was sent over secondary to elevated blood pressure at the half-way this evening. Blood pressures earlier in the day were essentially within normal limits. Around 7 PM he started recording blood pressures around 170-180 on the diastolic end. This was also around the time that he got to see his for the first time in a week secondary to quarantine issues. The patient is not reporting any pain. No shortness of breath. No abdominal pain. No nausea or vomiting. No obvious new lesions. He is not having any new difficulty on the ventilator. Timing/Duration: 1-3 hours Severity: mild Improving Factors: nothing Worsening Factors: nothing Associated Symptoms: denies symptoms Allergies/Adverse Reactions: Allergies Acetaminophen [From Tylenol] Allergy (Verified 09/11/19 23:06) Albuterol Allergy (Verified 12/09/15 22:32) Lidocaine Allergy (Verified 12/09/15 22:32) Home Medications: Ambulatory Orders Bisacodyl 10 mg ID DAILY PRN 12/09/15 Cyanocobalamin [Vitamin B-12 Cr] 1,000 mcg GT DAILY 12/09/15 Escitalopram Oxalate 10 mg GT DAILY 12/09/15 Ferrous Sulfate [Ferosul] 220 mg GT DAILY 12/09/15 Folic Acid 1 mg PEG DAILY 12/09/15 Gabapentin 7.5 ml GT Q8H 12/09/15 Guaifenesin 100 mg GT Q4H 12/09/15 Lidocaine 1% Pf [Xylocaine 1% PF] 2 ml INJ Q6H PRN 12/09/15 Polyethylene Glycol 3350 [Miralax] 17 gm GT DAILY 12/09/15 Riluzole 50 mg GT BID 12/09/15 Scopolamine Patch 1.5MG [Transderm-Scop Patch] 1 ea TD Q72H 12/09/15 Simethicone 80 mg GT QID 12/09/15 Tramadol HCl 100 mg GT Q4H PRN 12/09/15 Uti-Stat 30 ml GT BID 12/09/15 Alum & Mag Hydrox-Simethicone [Antacid Extra Strength An] 30 ml PEG TID PRN 08/06/17 Diphenhydramine HCl 25 mg GT Q6H PRN 08/06/17 Glycopyrrolate 2 mg GT Q6H 08/06/17 Ipratropium [place] 2.5 ml INH QID 08/06/17 Potassium Chloride Elixir [Kaochlor Liquid] 10 meq GT DAILY 08/06/17 Ibuprofen [Motrin Ib] 200 mg GT Q4H PRN 10/27/17 Metoclopramide HCl [Metoclopramide Hydrochlor] 20 mg PEG Q8H 10/27/17 Ondansetron [Zofran Odt] 4 mg PO Q6H PRN 10/27/17 Allopurinol [Zyloprim] 100 mg PEG DAILY 03/27/18 Calcium Carbonate-Cholecalcife [Calcium 600+D3 600-400 mg-Unit] 1 tab PEG DAILY 03/27/18 Ibuprofen [Motrin Ib] 200 mg GT Q8H PRN 03/27/18 Meloxicam [Mobic] 7.5 mg GT DAILY 03/27/18 Silver Sulfadiazine [Silvadene] 1 % EX DAILY 03/27/18 White Petrolatum-Mineral Oil [Lacri-Lube S.o.p] 1 oin OP QID PRN 03/27/18 Lactobacillus [Acidophilus] 1 cap PEG TID 02/27/19 Sulfamethoxazole-Trimethoprim [Bactrim Ds 800-160 mg] 1 tab PO BID #14 tab 06/20/19 levoFLOXacin [Levaquin] 500 mg GT DAILY #6 tab 08/02/19 Amoxicillin & Pot Clavulanate [Augmentin Tab] 875 mg PO BID #24 tab 09/12/19 Ciprofloxacin [Cipro] 500 mg PO BID #24 tab 09/12/19 Review of Systems - Review of Systems Review of Systems: 10/21/19 22:05 As best can be determined with his limited communication ability. His is able to help with communication. Review of systems is for new symptoms only. 10/21/19 22:05 Constitutional: States: no symptoms reported EENTM: States: no symptoms reported Respiratory: States: no symptoms reported Cardiology: States: no symptoms reported Gastrointestinal/Abdominal: States: no symptoms reported Genitourinary: States: no symptoms reported Musculoskeletal: States: no symptoms reported Skin: States: no symptoms reported Neurological: States: no symptoms reported All other Systems: No Change from Baseline Past Medical History (General) - Patient Medical History Hx Seizures: No Hx Stroke: No Hx Dementia: No Hx Asthma: No Hx of COPD: No Hx Cardiac Disorders: No Hx Congestive Heart Failure: No Hx Pacemaker: No Hx Hypertension: Yes Hx Thyroid Disease: No Hx Diabetes: No Hx Gastroesophageal Reflux: Yes Hx Renal Disease: No Hx Cancer: No Hx of HIV: No Hx Hepatitis C: No Hx MRSA: Yes - Sputum 2013 MRSA Source:: Sputum Surgical History: other - Vaccination History Hx Tetanus, Diphtheria Vaccination: No Hx Influenza Vaccination: No Hx Pneumococcal Vaccination: Yes Immunizations Up to Date: No - Social History Hx Tobacco Use: No Hx Chewing Tobacco Use: No Hx Alcohol Use: No Hx Substance Use: No Hx Substance Use Treatment: No Hx Depression: No Feels Threatened In Home Enviroment: No Feels Threatened In a Relationship: No Hx Physical Abuse: No Hx Emotional Abuse: No Hx Suspected Abuse: No - Activities of Daily Living Fdc/Assisted Living (if applicable):: [facility] Agency (if applicable):: None - Female History Patient is a Female of Child Bearing Age (10 -59 yrs old): No Patient : No Family Medical History - Family History Mother Family History: No Known Living Status: Still Living Physical Exam - Physical Exam General Appearance: Alert, Comfortable, No apparent distress Eye Exam: bilateral normal Ears, Nose, Throat: hearing grossly normal, normal pharynx Neck: non-tender, supple, other - Tracheostomy is in place Respiratory: no respiratory distress, no accessory muscle use, other - Good air movement for the patient. No evidence of any respiratory distress. He does have chronic right-sided basilar rails. Cardiovascular/Chest: normal peripheral pulses, no edema, tachycardia - Mild Peripheral Pulses: radial,right: 2+, radial,left: 2+ Gastrointestinal/Abdominal: non tender - Chronic surgical changes present, soft Rectal Exam: deferred Extremity: normal range of motion - Passive, normal capillary refill, pedal edema - +1 only which is chronic Neurologic: alert, normal mood/affect, other - Chronic changes related to ALS Skin Exam: normal color Comments: Vital Signs - 24 hr 10/21/19 10/21/19 10/21/19 20:00 20:02 21:00 Temperature 96.7 F L Pulse Rate [ 110 H 100 H pulse ox] Respiratory 16 16 Rate Respiratory 16 Rate [Volume Control Data] Blood Pressure 126/84 120/82 [Right Arm] O2 Sat by Pulse 100 100 Oximetry Progress - Progress Progress: 10/21/19 22:08 The patient is a 53-year-old male with ALS presenting secondary to a elevated blood pressure this evening. This is probably certain. It has returned to normal. He is essentially asymptomatic. Blood work and chest x-ray showed no acute changes. He does have chronic changes. He does have chronic mild hypokalemia and did receive an oral dose of potassium here. This needs to be followed as an outpatient. He does have a mildly abnormal urinalysis. It will be cultured. We will not start any new antibiotics at this point. The patient will be returned back to [facility] for continued care. ER warnings are given. Follow-up with facility doctor within 3 days. shana weiss [id number] - Results/Orders Results/Orders: 10/21/19 20:30 EKG STAT EKG shows sinus tachycardia at 101 bpm. Normal axis. Borderline R wave progression. No ST segment or T wave changes definitive for ischemia. Borderline prolonged QT interval. Laboratory Results - last 24 hr 10/21/19 10/21/19 10/21/19 21:00 21:00 21:00 WBC 10.0 RBC 3.73 L Hgb 12.1 L Hct 35.2 L MCV 94.5 H MCH 32.6 H MCHC 34.4 RDW 15.7 H Plt Count 234 MPV 6.8 L Absolute Neuts (auto) 8.40 H Absolute Lymphs (auto) 0.90 L Absolute Monos (auto) 0.60 Absolute Eos (auto) 0.20 Absolute Basos (auto) 0.00 Neutrophils % 83.5 H Lymphocytes % 8.7 L Monocytes % 5.7 Eosinophils % 1.6 Basophils % 0.5 Sodium 138 Potassium 3.2 L Chloride 110 Carbon Dioxide 18 L Anion Gap 13.2 BUN 13 Creatinine < 0.40 L BUN/Creatinine Ratio 32.0 H Random Glucose 102 Serum Osmolality 276.0 Calcium 9.5 Total Bilirubin 0.9 AST 17 ALT 17 Alkaline Phosphatase 292 H Creatine Kinase 16 L CK-MB (CK-2) 1.6 CK-MB (CK-2) % Not Reportable Troponin I < 0.02 Serum Total Protein 8.8 H Albumin 3.3 Globulin 5.5 H Albumin/Globulin Ratio 0.6 L Urine Color Urine Appearance Urine pH Ur Specific [place] Urine Protein Urine Glucose (UA) Urine Ketones Urine Blood Urine Nitrite Urine Bilirubin Urine Urobilinogen Ur Leukocyte Esterase Urine RBC Urine WBC Ur Epithelial Cells Amorphous Sediment Urine Bacteria 10/21/19 21:15 WBC RBC Hgb Hct MCV MCH MCHC RDW Plt Count MPV Absolute Neuts (auto) Absolute Lymphs (auto) Absolute Monos (auto) Absolute Eos (auto) Absolute Basos (auto) Neutrophils % Lymphocytes % Monocytes % Eosinophils % Basophils % Sodium Potassium Chloride Carbon Dioxide Anion Gap BUN Creatinine BUN/Creatinine Ratio Random Glucose Serum Osmolality Calcium Total Bilirubin AST ALT Alkaline Phosphatase Creatine Kinase CK-MB (CK-2) CK-MB (CK-2) % Troponin I Serum Total Protein Albumin Globulin Albumin/Globulin Ratio Urine Color Yellow Urine Appearance Sl cloudy Urine pH 7.0 Ur Specific [place] 1.015 Urine Protein Negative Urine Glucose (UA) Negative Urine Ketones Negative Urine Blood Moderate H Urine Nitrite Positive H Urine Bilirubin Negative Urine Urobilinogen 0.2 Ur Leukocyte Esterase Large H Urine RBC 3-5 H Urine WBC 10-20 H Ur Epithelial Cells 0 Amorphous Sediment Trace Urine Bacteria 1+ Single view chest x-ray shows chronic right-sided pulmonary opacity. Actually does appear to be a little improved compared to his last chest x-ray. Departure - Departure Clinical Impression: ALS (amyotrophic lateral sclerosis), Asymptomatic hypertension, Hypokalemia Disposition: Discharge to SNF Condition: Fair Departure Forms: ED Discharge - Pt. Copy, Patient Portal Self Enrollment Diet: regular diet Activity: increase activity as tolerated Referrals: CARLO GOODWIN [Primary Care Provider] - 1-2 Weeks Home Medications: Ambulatory Orders Bisacodyl 10 mg ID DAILY PRN 12/09/15 Cyanocobalamin [Vitamin B-12 Cr] 1,000 mcg GT DAILY 12/09/15 Escitalopram Oxalate 10 mg GT DAILY 12/09/15 Ferrous Sulfate [Ferosul] 220 mg GT DAILY 12/09/15 Folic Acid 1 mg PEG DAILY 12/09/15 Gabapentin 7.5 ml GT Q8H 12/09/15 Guaifenesin 100 mg GT Q4H 12/09/15 Lidocaine 1% Pf [Xylocaine 1% PF] 2 ml INJ Q6H PRN 12/09/15 Polyethylene Glycol 3350 [Miralax] 17 gm GT DAILY 12/09/15 Riluzole 50 mg GT BID 12/09/15 Scopolamine Patch 1.5MG [Transderm-Scop Patch] 1 ea TD Q72H 12/09/15 Simethicone 80 mg GT QID 12/09/15 Tramadol HCl 100 mg GT Q4H PRN 12/09/15 Uti-Stat 30 ml GT BID 12/09/15 Alum & Mag Hydrox-Simethicone [Antacid Extra Strength An] 30 ml PEG TID PRN 08/06/17 Diphenhydramine HCl 25 mg GT Q6H PRN 08/06/17 Glycopyrrolate 2 mg GT Q6H 08/06/17 Ipratropium [place] 2.5 ml INH QID 08/06/17 Potassium Chloride Elixir [Kaochlor Liquid] 10 meq GT DAILY 08/06/17 Ibuprofen [Motrin Ib] 200 mg GT Q4H PRN 10/27/17 Metoclopramide HCl [Metoclopramide Hydrochlor] 20 mg PEG Q8H 10/27/17 Ondansetron [Zofran Odt] 4 mg PO Q6H PRN 10/27/17 Allopurinol [Zyloprim] 100 mg PEG DAILY 03/27/18 Calcium Carbonate-Cholecalcife [Calcium 600+D3 600-400 mg-Unit] 1 tab PEG DAILY 03/27/18 Ibuprofen [Motrin Ib] 200 mg GT Q8H PRN 03/27/18 Meloxicam [Mobic] 7.5 mg GT DAILY 03/27/18 Silver Sulfadiazine [Silvadene] 1 % EX DAILY 03/27/18 White Petrolatum-Mineral Oil [Lacri-Lube S.o.p] 1 oin OP QID PRN 03/27/18 Lactobacillus [Acidophilus] 1 cap PEG TID 02/27/19 Sulfamethoxazole-Trimethoprim [Bactrim Ds 800-160 mg] 1 tab PO BID #14 tab 06/20/19 levoFLOXacin [Levaquin] 500 mg GT DAILY #6 tab 08/02/19 Amoxicillin & Pot Clavulanate [Augmentin Tab] 875 mg PO BID #24 tab 09/12/19 Ciprofloxacin [Cipro] 500 mg PO BID #24 tab 09/12/19 Additional Instructions: The patient is a 53-year-old male with ALS presenting secondary to a elevated blood pressure this evening. This is probably certain. It has returned to normal. He is essentially asymptomatic. Blood work and chest x-ray showed no acute changes. He does have chronic changes. He does have chronic mild hypokalemia and did receive an oral dose of potassium here. This needs to be followed as an outpatient. He does have a mildly abnormal urinalysis. It will be cultured. We will not start any new antibiotics at this point. The patient will be returned back to [facility] for continued care. ER warnings are given. Follow-up with facility doctor within 3 days.
[2019-10-21 22:34] VITALS: BP 124/87; TEMP 97.1; O2SAT 100
== END 2019-10-21 22:42 ==
LOC: ER 19:55
DX: I10 Essential (primary) hypertension (principal); G12.21 Amyotrophic lateral sclerosis; E87.6 Hypokalemia; R00.0 Tachycardia, unspecified; Z93.0 Tracheostomy status; Z79.899 Other long term (current) drug therapy; Z88.6 Allergy status to analgesic agent; Z88.8 Allergy status to other drugs, medicaments and biological substances
CPT/HCPCS: 71045; 80053; 81001; 82550; 82553; 84484; 85025; 87086; 93005; 94002; 94640; J7644

== ENCOUNTER → 2019-12-09 | Outpatient (CLI) | payer MEDICARE, OTHER | LOC: GOCC 01:56 | PROVIDERS: ATTEND Internal Medicine | DX: R50.9 Fever, unspecified (principal); R53.83 Other fatigue; N39.0 Urinary tract infection, site not specified ==

== ENCOUNTER 2019-12-10 15:32 | Emergency (ER) | payer MEDICARE, OTHER ==
--- NOTE | 2019-12-10 16:32 | RAD ---
EXAM DESCRIPTION: Chest,1 View CLINICAL HISTORY: 54 years Male mild tachycardia COMPARISON: October 21, 2019. TECHNIQUE: AP view of the chest was obtained. FINDINGS: Tracheostomy tube is present with the tip seen at the T3 level. This is 5.9 cm above the [place]. Mediastinal shift to the right. Extensive pleural parenchymal opacity right hemithorax unchanged. Suspected right pleural effusion unchanged. Hyperinflation left lung. No infiltrate or effusion on left. Chronic changes left lung base. No pneumothorax. IMPRESSION: Extensive pleural parenchymal opacity with volume loss and pleural fluid right hemithorax unchanged. Hyperinflation left lung with no infiltrate or effusions seen. Chronic changes left lung base. Electronically signed by: Erika Mora MD 12/10/2019 4:31 PM CDT
[2019-12-10] MEDS ORDERED: cefTRIAXone SODIUM 2 GM in SODIUM CHL 0.9% 50ML MIN-BAG+ 50 ML IVPB ONE (17:12)
[2019-12-10] MEDS ORDERED: SODIUM CHLORIDE 0.9% 1000ML 1,000 ML IVS ONE (17:12)
[2019-12-10] MEDS ORDERED: cefTRIAXone SODIUM 1 GM VIAL ONE (17:18)
[2019-12-10] MEDS ORDERED: SODIUM CHL 0.9% 50ML MIN-BAG+ 50 ML IVPB ONE (17:18)
--- NOTE | 2019-12-10 17:45 | CT ---
EXAM DESCRIPTION: Abdoment/Pelvis w/o Contrast CLINICAL HISTORY: 54 years Male hematuria, moe in place TECHNIQUE: CT of the abdomen and pelvis using intravenous contrast. All CT scans at this facility use dose modulation, iterative reconstruction, and/or weight based dosing when appropriate to reduce radiation dose to as low as reasonably achievable. COMPARISON: CT chest September 11, 2019. CT abdomen and pelvis May 15, 2018. FINDINGS: Lower chest: Incompletely imaged consolidation in the right lung base again noted. Significantly decreased consolidation in the left lung base with very minimal residual remaining. Abdomen: Liver: No focal lesions. No intrahepatic ductal distention. Gallbladder: Negative Pancreas: Within normal limits Spleen: Within normal limits Right kidney: Scattered nonobstructing stones from 2 to 5 mm. No hydronephrosis. No focal lesion. Left kidney: Asymmetrically small compared to the right. Scattered nonobstructing stones from 2 to 3 mm. No hydronephrosis. No focal lesion. Adrenal glands: Within normal limits Vascular structures: Atherosclerotic calcification of the aorta and its major branches. Pelvis: Bowel: Gastrostomy tube in place. Distention of the stomach and small bowel with air-fluid levels. Transition point in the distal small bowel which is decompressed. Appendix: Not seen. Peritoneum: Small simple free fluid in the pelvis on the left again noted. No free air. Lymph Nodes: No adenopathy. Reproductive: Unremarkable. Urinary bladder: Urinary bladder is decompressed containing innumerable stones, new from prior study. Moe catheter within the urinary bladder with luminal gas. Osseous structures: Diffuse osteopenia. Multilevel degenerative changes. Multilevel foci of sclerosis throughout the spine, grossly unchanged. Soft tissues: Unremarkable. IMPRESSION: 1. Urinary bladder is decompressed containing innumerable stones, new from prior study. 2. Bilateral nonobstructing stones in both kidneys as described above. 3. Distention of the stomach and small bowel with air-fluid levels suspicious for bowel obstruction. Transition point in the distal small bowel which is decompressed. 4. Incompletely imaged consolidation in the right lung base again noted. Electronically signed by: Shyam Chambers MD 12/10/2019 5:43 PM CDT
[2019-12-10] MEDS ORDERED: IPRATROPIUM BROMIDE NEBS 0.5 MG/2.5 ML VIAL NEB ONE (17:49)
[2019-12-10 18:07] VITALS: O2SAT 100
[2019-12-10] MEDS ORDERED: MEROPENEM 1 GM in SODIUM CHL 0.9% 50ML MIN-BAG+ 50 ML IVPB ONE (18:45)
--- NOTE | 2019-12-10 18:49 | ED.PDOC ---
History of Present Illness - General Chief Complaint: General Stated Complaint: not feeling well Time Seen by Provider: 12/10/19 15:42 Source: EMS notes reviewed, family, senior care records Exam Limitations: clinical condition - History of Present Illness Initial Comments: The patient is a 54-year-old male that is chronic ventilator dependent presenting at his 's request from the long-term care facility secondary to her reporting that he does not look good. The patient was tachycardic in the 120s to 130s. This is a little faster than he normally is. No fever. He was started on Macrobid yesterday for a catheter associated urinary tract infection. His last urinary tract infection grew out Proteus and Klebsiella. The Klebsiella was sensitive to Macrobid so that is what he was started on. The Proteus was sensitive to penicillins and cephalosporins. He apparently had 1 or 2 episodes of vomiting this morning. He was still having stool output. His abdomen is diffusely distended. No evidence of point tenderness. The patient is minimally communicative but primarily communicates with his eyes with his . No evidence of any change in the respiratory status from baseline. He has chronic significant scarring in the right lung field with a chronic small effusion and hyperexpansion of the left lung field. It is been this way for at least the last 5 months or so. The patient has become progressively less able to move his extremities. 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 Small amount of gastric material was suctioned out from around the trach. A small amount of air was added to the trach as well as there seem to be a small amount leaking with ventilation. This will need to be followed. It is not leaking currently. He is not any respiratory distress and he is oxygenating well on his routine settings. The patient has apparently had at least 1 small bowel obstruction within the last year that apparently did not require surgical intervention. The patient is actually hypertensive rather than hypotensive. He is tachycardic however but no fever. Timing/Duration: unsure - Due to limited ability to communicate Severity: moderate Allergies/Adverse Reactions: Allergies Acetaminophen [From Tylenol] Allergy (Verified 12/10/19 16:25) Albuterol Allergy (Verified 12/10/19 16:25) Lidocaine Allergy (Verified 12/10/19 16:25) Home Medications: Ambulatory Orders Bisacodyl 10 mg CA DAILY PRN 12/09/15 Cyanocobalamin [Vitamin B-12 Cr] 1,000 mcg GT DAILY 12/09/15 Escitalopram Oxalate 10 mg GT DAILY 12/09/15 Ferrous Sulfate [Ferosul] 220 mg GT DAILY 12/09/15 Folic Acid 1 mg PEG DAILY 12/09/15 Gabapentin 7.5 ml GT Q8H 12/09/15 Guaifenesin 100 mg GT Q4H 12/09/15 Lidocaine 1% Pf [Xylocaine 1% PF] 2 ml INJ Q6H PRN 12/09/15 Polyethylene Glycol 3350 [Miralax] 17 gm GT DAILY 12/09/15 Riluzole 50 mg GT BID 12/09/15 Scopolamine Patch 1.5MG [Transderm-Scop Patch] 1 ea TD Q72H 12/09/15 Simethicone 80 mg GT QID 12/09/15 Tramadol HCl 100 mg GT Q4H PRN 12/09/15 Uti-Stat 30 ml GT BID 12/09/15 Alum & Mag Hydrox-Simethicone [Antacid Extra Strength An] 30 ml PEG TID PRN 08/06/17 Diphenhydramine HCl 25 mg GT Q6H PRN 08/06/17 Glycopyrrolate 2 mg GT Q6H 08/06/17 Ipratropium [place] 2.5 ml INH QID 08/06/17 Potassium Chloride Elixir [Kaochlor Liquid] 10 meq GT DAILY 08/06/17 Ibuprofen [Motrin Ib] 200 mg GT Q4H PRN 10/27/17 Metoclopramide HCl [Metoclopramide Hydrochlor] 20 mg PEG Q8H 10/27/17 Ondansetron [Zofran Odt] 4 mg PO Q6H PRN 10/27/17 Allopurinol [Zyloprim] 100 mg PEG DAILY 03/27/18 Calcium Carbonate-Cholecalcife [Calcium 600+D3 600-400 mg-Unit] 1 tab PEG DAILY 03/27/18 Ibuprofen [Motrin Ib] 200 mg GT Q8H PRN 03/27/18 Meloxicam [Mobic] 7.5 mg GT DAILY 03/27/18 Silver Sulfadiazine [Silvadene] 1 % EX DAILY 03/27/18 White Petrolatum-Mineral Oil [Lacri-Lube S.o.p] 1 oin OP QID PRN 03/27/18 Lactobacillus [Acidophilus] 1 cap PEG TID 02/27/19 Sulfamethoxazole-Trimethoprim [Bactrim Ds 800-160 mg] 1 tab PO BID #14 tab 06/20/19 levoFLOXacin [Levaquin] 500 mg GT DAILY #6 tab 08/02/19 Amoxicillin & Pot Clavulanate [Augmentin Tab] 875 mg PO BID #24 tab 09/12/19 Ciprofloxacin [Cipro] 500 mg PO BID #24 tab 09/12/19 Review of Systems - Review of Systems Review of Systems: 12/10/19 18:49 Unable to obtain review of systems as the patient is not able to communicate and has not been able to see him secondary to restrictions related to covid. Past Medical History (General) - Patient Medical History Hx Seizures: No Hx Stroke: No Hx Dementia: No Hx Asthma: No Hx of COPD: No Hx Cardiac Disorders: No Hx Congestive Heart Failure: No Hx Pacemaker: No Hx Hypertension: Yes Hx Thyroid Disease: No Hx Diabetes: No Hx Gastroesophageal Reflux: Yes Hx Renal Disease: No Hx Cancer: No Hx of HIV: No Hx Hepatitis C: No Hx MRSA: Yes - Sputum 2013 MRSA Source:: Sputum - Vaccination History Hx Tetanus, Diphtheria Vaccination: No Hx Influenza Vaccination: No Hx Pneumococcal Vaccination: Yes - Social History Hx Tobacco Use: No Hx Chewing Tobacco Use: No Hx Alcohol Use: No Hx Substance Use: No Hx Substance Use Treatment: No Hx Depression: No Hx Physical Abuse: No Hx Emotional Abuse: No Hx Suspected Abuse: No - Activities of Daily Living Fpc/Assisted Living (if applicable):: [facility] - Female History Patient : No Family Medical History - Family History Mother Family History: No Known Living Status: Still Living Physical Exam - Physical Exam General Appearance: Alert, Other - He appears mildly uncomfortable when compared to previous visits Eye Exam: bilateral normal Ears, Nose, Throat: hearing grossly normal, other - Patient is in need of some oral hygiene. Neck: full range of motion, supple, other - Tracheostomy is in place with a small amount of gastric type liquid leaking out around it. Respiratory: other - Good air movement to the left lung field. Decreased air movement to the right lung field which is at this point normal for the patient. There are chronic rales on the right side. Cardiovascular/Chest: normal peripheral pulses, tachycardia - Sinus, other - Diffuse mild anasarca Peripheral Pulses: radial,right: 2+, radial,left: 2+ Gastrointestinal/Abdominal: soft, other - Abdomen is distended. No evidence of any guarding however I am unsure if the patient can manage guarding at this point. No obvious evidence of any real point tenderness. G-tube is in place. Rectal Exam: deferred Extremity: normal range of motion - Passive, non-tender, no calf tenderness, normal capillary refill, pedal edema Neurologic: alert, normal mood/affect, other - Difficult to ascertain the patient's orientation. He does still seem to interact with his Skin Exam: normal color Comments: Vital Signs - 24 hr 12/10/19 12/10/19 12/10/19 15:33 15:35 16:35 Temperature 98.9 F Pulse Rate Pulse Rate [ 120 H 116 H apical] Respiratory 16 Rate Respiratory 16 Rate [Volume Control Data] Blood Pressure 165/97 118/100 [right brachial ] O2 Sat by Pulse 98 116 H Oximetry 12/10/19 12/10/19 12/10/19 17:00 17:11 18:00 Temperature Pulse Rate Pulse Rate [ 110 H 107 H apical] Respiratory 16 Rate Respiratory 16 Rate [Volume Control Data] Blood Pressure 147/115 121/99 [right brachial ] O2 Sat by Pulse 99 99 Oximetry 12/10/19 18:05 Temperature Pulse Rate 110 H Pulse Rate [ apical] Respiratory 16 Rate Respiratory Rate [Volume Control Data] Blood Pressure [right brachial ] O2 Sat by Pulse 100 Oximetry Progress - Progress Progress: 12/10/19 18:53 The patient is a 54-year-old male presented emergency room from his long-term care facility primarily due to tachycardia. The patient does have a significant urinary tract infection associated with Hernandez catheter. Based upon culture results from his last urinary tract infection he has been placed on meropenem and Rocephin. Urine culture is being done. He was started on Macrobid yesterday however given the small bowel obstruction it is questionable how much of that was given absorbed. The patient does have a small bowel obstruction. He has had a brief period of low intermittent suction on his G- tube which is pulled off around 3 L. Abdomen is much less distended and he is obviously feeling better. He will likely need some intermittent suctioning in the future. Blood cultures [place] [id number]. His normal is around 10,000. The patient also does have some hyponatremia and hypochloremia. He has received a liter of IV fluids here. These will obviously need to be followed for resolution in light of the small bowel obstruction. The patient is obviously chronically ventilator dependent and will need continued management there. He does largely appear to be at baseline from the pulmonary standpoint however. His trach needs to be followed to make sure he does not require repeat inflating of the trach bulb. Transferring for [facility] for higher level of care. Acceptance is appreciated. shana weiss [id number] - Results/Orders Results/Orders: 12/10/19 15:51 EKG shows sinus tachycardia at 129 bpm. Normal axis. Normal R wave progression. No definitive ST segment or T wave changes indicative of acute ischemia. Borderline prolonged QT interval. This is consistent with previous EKGs. Chest x-ray shows hyperexpanded left lung field along with chronic scarring and infiltrates in the right lung field with what is probably chronic small effusion. CT scan of the abdomen pelvis shows a consolidation and small effusion to the right lung field. There are kidney stones down in the bladder. No evidence of any hydronephrosis or ureteral nephrosis. Hernandez catheter is in place. He does also appear to have a small bowel obstruction with transition point in the distal small bowel. No perforation. See report for details. 12/10/19 16:05 BLOOD CULTURE Stat 12/10/19 16:15 SPUTUM CULTURE Stat Urine Culture Stat Laboratory Results - last 24 hr 12/10/19 12/10/19 12/10/19 16:05 16:05 16:05 WBC 17.2 H RBC 4.12 L Hgb 13.3 L Hct 38.5 L MCV 93.4 MCH 32.4 H MCHC 34.6 RDW 15.1 H Plt Count 209 MPV 7.8 Absolute Neuts (auto) 16.10 H Absolute Lymphs (auto) 0.20 L Absolute Monos (auto) 0.70 Absolute Eos (auto) 0.10 Absolute Basos (auto) 0.00 Neutrophils % 93.5 H Lymphocytes % 1.3 L Monocytes % 4.3 Eosinophils % 0.6 L Basophils % 0.3 Sodium 122 L Potassium 3.7 Chloride 94 L Carbon Dioxide 17 L Anion Gap 14.7 BUN 28 H Creatinine < 0.40 L BUN/Creatinine Ratio 70.0 H Random Glucose 190 H Serum Osmolality 252.8 L* Calcium 9.4 Magnesium 1.9 Total Bilirubin 1.8 H AST 27 ALT 23 Alkaline Phosphatase 249 H Creatine Kinase 24 L CK-MB (CK-2) 3.0 CK-MB (CK-2) % Not Reportable Troponin I < 0.02 Serum Total Protein 7.7 Albumin 2.9 L Globulin 4.8 H Albumin/Globulin Ratio 0.6 L Urine Color Urine Appearance Urine pH Ur Specific [place] Urine Protein Urine Glucose (UA) Urine Ketones Urine Blood Urine Nitrite Urine Bilirubin Urine Urobilinogen Ur Leukocyte Esterase Urine RBC Urine WBC Ur Epithelial Cells Urine Bacteria 12/10/19 16:15 WBC RBC Hgb Hct MCV MCH MCHC RDW Plt Count MPV Absolute Neuts (auto) Absolute Lymphs (auto) Absolute Monos (auto) Absolute Eos (auto) Absolute Basos (auto) Neutrophils % Lymphocytes % Monocytes % Eosinophils % Basophils % Sodium Potassium Chloride Carbon Dioxide Anion Gap BUN Creatinine BUN/Creatinine Ratio Random Glucose Serum Osmolality Calcium Magnesium Total Bilirubin AST ALT Alkaline Phosphatase Creatine Kinase CK-MB (CK-2) CK-MB (CK-2) % Troponin I Serum Total Protein Albumin Globulin Albumin/Globulin Ratio Urine Color Dk yellow Urine Appearance Cloudy Urine pH 7.0 Ur Specific [place] 1.025 Urine Protein >=300 H Urine Glucose (UA) Negative Urine Ketones Negative Urine Blood Large H Urine Nitrite Positive H Urine Bilirubin Small H Urine Urobilinogen 2.0 H Ur Leukocyte Esterase Large H Urine RBC Tntc H Urine WBC Obscured by rbc's H Ur Epithelial Cells 0 Urine Bacteria Obscured by rbc's H Departure - Departure Clinical Impression: Ventilator dependent, Small bowel obstruction, Hyponatremia Catheter cystitis Qualifiers: Encounter type: initial encounter Qualified Code(s): T83.518A - Infection and inflammatory reaction due to other urinary catheter, initial encounter; N30.90 - Cystitis, unspecified without hematuria Disposition: Transfer to Hospital Condition: Poor Departure Forms: ED Discharge - Pt. Copy, Patient Portal Self Enrollment Referrals: CARLO GOODWIN [Primary Care Provider] - 1-2 Weeks Home Medications: Ambulatory Orders Bisacodyl 10 mg CA DAILY PRN 12/09/15 Cyanocobalamin [Vitamin B-12 Cr] 1,000 mcg GT DAILY 12/09/15 Escitalopram Oxalate 10 mg GT DAILY 12/09/15 Ferrous Sulfate [Ferosul] 220 mg GT DAILY 12/09/15 Folic Acid 1 mg PEG DAILY 12/09/15 Gabapentin 7.5 ml GT Q8H 12/09/15 Guaifenesin 100 mg GT Q4H 12/09/15 Lidocaine 1% Pf [Xylocaine 1% PF] 2 ml INJ Q6H PRN 12/09/15 Polyethylene Glycol 3350 [Miralax] 17 gm GT DAILY 12/09/15 Riluzole 50 mg GT BID 12/09/15 Scopolamine Patch 1.5MG [Transderm-Scop Patch] 1 ea TD Q72H 12/09/15 Simethicone 80 mg GT QID 12/09/15 Tramadol HCl 100 mg GT Q4H PRN 12/09/15 Uti-Stat 30 ml GT BID 12/09/15 Alum & Mag Hydrox-Simethicone [Antacid Extra Strength An] 30 ml PEG TID PRN 08/06/17 Diphenhydramine HCl 25 mg GT Q6H PRN 08/06/17 Glycopyrrolate 2 mg GT Q6H 08/06/17 Ipratropium [place] 2.5 ml INH QID 08/06/17 Potassium Chloride Elixir [Kaochlor Liquid] 10 meq GT DAILY 08/06/17 Ibuprofen [Motrin Ib] 200 mg GT Q4H PRN 10/27/17 Metoclopramide HCl [Metoclopramide Hydrochlor] 20 mg PEG Q8H 10/27/17 Ondansetron [Zofran Odt] 4 mg PO Q6H PRN 10/27/17 Allopurinol [Zyloprim] 100 mg PEG DAILY 03/27/18 Calcium Carbonate-Cholecalcife [Calcium 600+D3 600-400 mg-Unit] 1 tab PEG DAILY 03/27/18 Ibuprofen [Motrin Ib] 200 mg GT Q8H PRN 03/27/18 Meloxicam [Mobic] 7.5 mg GT DAILY 03/27/18 Silver Sulfadiazine [Silvadene] 1 % EX DAILY 03/27/18 White Petrolatum-Mineral Oil [Lacri-Lube S.o.p] 1 oin OP QID PRN 03/27/18 Lactobacillus [Acidophilus] 1 cap PEG TID 02/27/19 Sulfamethoxazole-Trimethoprim [Bactrim Ds 800-160 mg] 1 tab PO BID #14 tab 06/20/19 levoFLOXacin [Levaquin] 500 mg GT DAILY #6 tab 08/02/19 Amoxicillin & Pot Clavulanate [Augmentin Tab] 875 mg PO BID #24 tab 09/12/19 Ciprofloxacin [Cipro] 500 mg PO BID #24 tab 09/12/19 Transfer to Outside Facility - Transfer Information Decision to Transfer Date: 12/10/19 Decision to Transfer Time: 18:57 Reason for Transfer: specialized care not available Accepting Provider:: dr de luna Accepting Facility: [facility]
[2019-12-10 19:10] VITALS: TEMP 97.6
[2019-12-10] MEDS ORDERED: MEROPENEM 500 MG VIAL IVPB ONE (19:11)
[2019-12-10] MEDS ORDERED: SODIUM CHLORIDE 0.9% 50ML 50 ML ONE (19:12)
[2019-12-10 19:25] VITALS: BP 105/75
== END 2019-12-10 19:42 | disposition short-term general hospital (02) ==
LOC: ER 15:32
DX: K56.609 Unspecified intestinal obstruction, unspecified as to partial versus complete obstruction (principal); E87.1 Hypo-osmolality and hyponatremia; N30.90 Cystitis, unspecified without hematuria; I10 Essential (primary) hypertension; T83.518A Infection and inflammatory reaction due to other urinary catheter, initial encounter; R11.10 Vomiting, unspecified; Z99.11 Dependence on respirator [ventilator] status
CPT/HCPCS: 36415; 71045; 74176; 80053; 81001; 82550; 82553; 83735; 84484; 85025; 87040; 87070; 87077; 87086; 87186; 93005; 94002; 94640; A4216; J0696; J2060; J2185; J7030; J7050; J7644

== ENCOUNTER 2020-02-07 19:34 | Emergency (ER) | payer MEDICARE, OTHER ==
[2020-02-07] MEDS ORDERED: SODIUM CHLORIDE 0.9% (FLUSH) 10 ML SYG IV PRN (20:04)
[2020-02-07] MEDS ORDERED: SODIUM CHLORIDE 0.9% 1000ML 1,000 ML IVS ONE (20:04)
--- NOTE | 2020-02-07 20:06 | ED.PDOC ---
History of Present Illness - General Chief Complaint: Fever Stated Complaint: fever Time Seen by Provider: 02/07/20 20:03 Source: family - History of Present Illness Initial Comments: 54 yo M with PMH sig for ALS, with trach, G tube, chronic indwelling urinary catheter who presents from OR for fever. Tmax 100.6. Catheter was just exchanged yesterday. +COVID on another segal, they have been keeping him isolated in his own room. Per , pt was recently put on 5 day course of lasix for edema and fluid intake was restricted more. HPI and ROS otherwise limited, pt is nonverbal. Review of Systems - Review of Systems Unable to Obtain Due To: other - nonverbal, trach Past Medical History (General) - Patient Medical History Hx Seizures: No Hx Stroke: No Hx Dementia: No Hx Asthma: No Hx of COPD: No Hx Cardiac Disorders: No Hx Congestive Heart Failure: No Hx Pacemaker: No Hx Hypertension: Yes Hx Thyroid Disease: No Hx Diabetes: No Hx Gastroesophageal Reflux: Yes Hx Renal Disease: No Hx Cancer: No Hx of HIV: No Hx Hepatitis C: No Hx MRSA: Yes - Sputum 2014 MRSA Source:: Sputum - Vaccination History Hx Tetanus, Diphtheria Vaccination: No Hx Influenza Vaccination: No Hx Pneumococcal Vaccination: Yes - Social History Hx Tobacco Use: No Hx Chewing Tobacco Use: No Hx Alcohol Use: No Hx Substance Use: No Hx Substance Use Treatment: No Hx Depression: No Hx Physical Abuse: No Hx Emotional Abuse: No Hx Suspected Abuse: No - Female History Patient : No Family Medical History - Family History Mother Family History: No Known Living Status: Still Living Physical Exam - Physical Exam General Appearance: Alert, Other - sitting up in bed, vented, will make a small smile in response to questions Eye Exam: bilateral other - EOMI, PERRL, no conjunctival erythema ENT Exam: other - dry mucus membranes with dry lips Neck: non-tender, supple, other - trach, c/d/i Respiratory: no respiratory distress, no accessory muscle use, other - course breath sounds throughout Cardiovascular/Chest: normal peripheral pulses, no gallop, no JVD, no murmur, tachycardia Gastrointestinal/Abdominal: non tender, soft, other - G tube, c/d/i. Urinary catheter in place with yellow urine with sediment in tubing. No distention, guarding, rebound. Extremity: non-tender, no pedal edema, normal capillary refill, other - mild edema bilateral hands Neurologic: alert Skin Exam: normal color, warm/dry Progress - Progress Progress: I have explained and reviewed all results with the pt's after discussion with Alexus, midlevel provider. Secondary to multiple resistant bacteria on urine cultures in the past, Alexus has arranged for macrobid and IV Rocephin to be given at the OR, will leave in PIV. is thrilled with this information, that he will be able to go back to the OR for antibiotics there. Pt given first dose here in ED as well as potassium. I explained that emergent conditions may arise and to return to the ER for new, worsening, or any persistent conditions. I've explained the importance of f/u for recheck and informed of my discussion with Alexus who will have Dr. Caraballo follow up with them tomorrow. All questions and concerns addressed at this time. Pt understands and agrees with plan. Pt well appearing, NAD, is stable for discharge. Selma Bolaños MD Emergency Medicine Physician Billing Number [id number] - Results/Orders Results/Orders: 02/07/20 20:04 IV Care:Saline Lock per Protoc QSHIFT Telemetry .ONCE Sodium Chloride 0.9% (Flush) [Saline Flush Syringe] 10 ml IV PRN PRN EKG Stat Pulse Ox Stat 02/07/20 20:15 EKG STAT 02/07/20 20:41 URINE CULTURE W/COLONY COUNT Stat 02/07/20 20:45 EKG STAT 02/07/20 21:03 Urine Culture Stat 02/07/20 21:10 SARS-COV2 RT-PCR HIGH RISK Stat 02/07/20 21:40 BLOOD CULTURE Stat Laboratory Results - last 24 hr 02/07/20 02/07/20 02/07/20 20:00 20:00 20:25 WBC 9.5 RBC 3.53 L Hgb 11.5 L Hct 33.8 L MCV 95.8 H MCH 32.6 H MCHC 34.1 RDW 14.8 H Plt Count 307 MPV 7.2 L Absolute Neuts (auto) 5.70 Absolute Lymphs (auto) 2.70 Absolute Monos (auto) 0.80 Absolute Eos (auto) 0.20 Absolute Basos (auto) 0.10 Neutrophils % 60.7 Lymphocytes % 28.4 Monocytes % 8.1 Eosinophils % 2.1 Basophils % 0.7 Sodium 135 Potassium 3.0 L Chloride 104 Carbon Dioxide 20 L Anion Gap 14.0 BUN 31 H Creatinine < 0.40 L BUN/Creatinine Ratio 77.0 H Random Glucose 127 H Serum Osmolality 278.2 Lactic Acid 1.2 Calcium 8.6 Total Bilirubin 0.9 AST 16 ALT 13 Alkaline Phosphatase 217 H Serum Total Protein 7.9 Albumin 2.8 L Globulin 5.1 H Albumin/Globulin Ratio 0.5 L Urine Color Urine Appearance Urine pH Ur Specific [place] Urine Protein Urine Glucose (UA) Urine Ketones Urine Blood Urine Nitrite Urine Bilirubin Urine Urobilinogen Ur Leukocyte Esterase Urine RBC Urine WBC Ur Epithelial Cells Other Crystals Amorphous Sediment Urine Bacteria 02/07/20 20:41 WBC RBC Hgb Hct MCV MCH MCHC RDW Plt Count MPV Absolute Neuts (auto) Absolute Lymphs (auto) Absolute Monos (auto) Absolute Eos (auto) Absolute Basos (auto) Neutrophils % Lymphocytes % Monocytes % Eosinophils % Basophils % Sodium Potassium Chloride Carbon Dioxide Anion Gap BUN Creatinine BUN/Creatinine Ratio Random Glucose Serum Osmolality Lactic Acid Calcium Total Bilirubin AST ALT Alkaline Phosphatase Serum Total Protein Albumin Globulin Albumin/Globulin Ratio Urine Color Other Urine Appearance Cloudy Urine pH 8.5 H Ur Specific [place] 1.015 Urine Protein 100 H Urine Glucose (UA) Negative Urine Ketones Negative Urine Blood Large H Urine Nitrite Negative Urine Bilirubin Negative Urine Urobilinogen 0.2 Ur Leukocyte Esterase Large H Urine RBC 5-10 H Urine WBC 10-20 H Ur Epithelial Cells 0 Other Crystals 1+powder crystals Amorphous Sediment 2+ Urine Bacteria 2+ H CXR: EXAM DESCRIPTION: Chest,1 View CLINICAL HISTORY:54 years Male, fever Comparison: Chest radiograph dated 12/10/2019 FINDINGS: Continued evidence of opacity and atelectasis of the right lung zones. Unchanged position of tracheostomy tube. Possible small right pleural effusion. No pneumothorax. Cardiomediastinal silhouette is within normal limits. No acute osseous abnormality. IMPRESSION: Chronic opacification of the right lung, grossly unchanged from prior exam. Associated atelectasis. Electronically signed by: Armani Goncalves DO 02/07/2020 9:04 PM CDT Vital Signs - 24 hr 02/07/20 02/07/20 02/07/20 19:53 20:00 20:34 Temperature 99.6 F Pulse Rate [ 110 H 90 Pulse Ox] Respiratory 16 18 Rate Respiratory 20 Rate [Volume Control Data] Blood Pressure 111/74 110/70 [L Arm] O2 Sat by Pulse 98 95 Oximetry 02/07/20 02/07/20 02/07/20 21:00 22:00 22:30 Temperature Pulse Rate [ 88 88 Pulse Ox] Respiratory 16 16 Rate Respiratory 16 Rate [Volume Control Data] Blood Pressure 109/70 114/79 [L Arm] O2 Sat by Pulse 98 94 L Oximetry 02/07/20 02/07/20 23:00 23:03 Temperature 98.4 F Pulse Rate [ 79 78 Pulse Ox] Respiratory 16 16 Rate Respiratory Rate [Volume Control Data] Blood Pressure 117/88 117/88 [L Arm] O2 Sat by Pulse 99 100 Oximetry Departure - Departure Clinical Impression: Acute cystitis without hematuria, Hypokalemia, Mild dehydration Time of Disposition: 21:15 Disposition: Discharge to Home or Self Care Health Concerns: condition: stable Departure Forms: ED Discharge - Pt. Copy, Patient Portal Self Enrollment Instructions: Urinary Tract Infection, Adult (DC) Referrals: CARLO GOODWIN [Primary Care Provider] - 1-2 Days Home Medications: Ambulatory Orders Bisacodyl 10 mg [place] DAILY PRN 12/09/15 Cyanocobalamin [Vitamin B-12 Cr] 1,000 mcg GT DAILY 12/09/15 Escitalopram Oxalate 10 mg GT DAILY 12/09/15 Ferrous Sulfate [Ferosul] 220 mg GT DAILY 12/09/15 Folic Acid 1 mg PEG DAILY 12/09/15 Gabapentin 7.5 ml GT Q8H 12/09/15 Guaifenesin 100 mg GT Q4H 12/09/15 Polyethylene Glycol 3350 [Miralax] 17 gm GT DAILY 12/09/15 Riluzole 50 mg GT BID 12/09/15 Scopolamine Patch 1.5MG [Transderm-Scop Patch] 1 ea TD Q72H 12/09/15 Simethicone 80 mg GT QID 12/09/15 Tramadol HCl 100 mg GT Q4H PRN 12/09/15 Uti-Stat 30 ml GT BID 12/09/15 Alum & Mag Hydrox-Simethicone [Antacid Extra Strength An] 30 ml PEG TID PRN 08/06/17 Diphenhydramine HCl 25 mg GT Q6H PRN 08/06/17 Glycopyrrolate 2 mg GT Q6H 08/06/17 Ipratropium [place] 2.5 ml INH QID 08/06/17 Potassium Chloride Elixir [Kaochlor Liquid] 10 meq GT DAILY 08/06/17 Metoclopramide HCl [Metoclopramide Hydrochlor] 20 mg PEG Q8H 10/27/17 Ondansetron [Zofran Odt] 4 mg PO Q6H PRN 10/27/17 Allopurinol [Zyloprim] 100 mg PEG DAILY 03/27/18 Calcium Carbonate-Cholecalcife [Calcium 600+D3 600-400 mg-Unit] 1 tab PEG DAILY 03/27/18 Ibuprofen [Motrin Ib] 200 mg GT Q8H PRN 03/27/18 Meloxicam [Mobic] 7.5 mg GT DAILY 03/27/18 White Petrolatum-Mineral Oil [Lacri-Lube S.o.p] 1 oin OP QID PRN 03/27/18 Lactobacillus [Acidophilus] 1 cap PEG TID 02/27/19 Additional Instructions: Follow up: [facility] As needed, if symptoms worsen
--- NOTE | 2020-02-07 21:05 | RAD ---
EXAM DESCRIPTION: Chest,1 View CLINICAL HISTORY:54 years Male, fever Comparison: Chest radiograph dated 12/10/2019 FINDINGS: Continued evidence of opacity and atelectasis of the right lung zones. Unchanged position of tracheostomy tube. Possible small right pleural effusion. No pneumothorax. Cardiomediastinal silhouette is within normal limits. No acute osseous abnormality. IMPRESSION: Chronic opacification of the right lung, grossly unchanged from prior exam. Associated atelectasis. Electronically signed by: Armani Goncalves DO 02/07/2020 9:04 PM CDT
[2020-02-07] MEDS ORDERED: POTASSIUM CHLORIDE ELIXIR 20 MEQ/15 ML UD PO ONE (21:16)
[2020-02-07] MEDS ORDERED: cefTRIAXone SODIUM 1 GM in SODIUM CHL 0.9% 50ML MIN-BAG+ 50 ML IVPB ONE (21:52)
[2020-02-07] MEDS ORDERED: NITROFURANTOIN MONOHYDRATE MAC 100 MG CAP PO ONE (21:52)
[2020-02-07 23:01] VITALS: BP 117/88
[2020-02-07 23:06] VITALS: TEMP 98.4; O2SAT 100
== END 2020-02-07 23:05 | disposition home or self-care (01) ==
LOC: ER 19:34
DX: N30.00 Acute cystitis without hematuria (principal); R50.9 Fever, unspecified; G12.21 Amyotrophic lateral sclerosis; I10 Essential (primary) hypertension; E86.0 Dehydration; E87.6 Hypokalemia; Z93.1 Gastrostomy status; Z93.0 Tracheostomy status
CPT/HCPCS: 36415; 71045; 80053; 81001; 83605; 85025; 87040; 87086; 87635; 93005; 94002; J0696; J7030; J7050

== ENCOUNTER 2020-02-17 18:37 | Emergency (ER) | payer MEDICARE, OTHER ==
--- NOTE | 2020-02-17 19:06 | ED.PDOC ---
History of Present Illness - General Chief Complaint: Respiratory Problem Stated Complaint: respiratory Time Seen by Provider: 02/17/20 19:03 Source: RN notes reviewed, Vital Signs reviewed, EMS notes reviewed, EMS, halfway records Exam Limitations: physical impairment - History of Present Illness Initial Comments: This is a 54-year-old male with history of ALS, ventilator dependence and chronic respiratory failure, recently diagnosed with UTI. He was transferred by ambulance from from the halfway due to increased peak pressures on vent today. According to EMS, patient usually has peak pressures in the mid 20s, peak pressure today was 40. They attempted suctioning without much sputum returned.There was no respiratory distress, no hypoxia. No increased cough. No fever. He was recently tested for COVID-19 and was negative.He was seen in the emergency department on 02/07/2020 and diagnosed with UTI. He has history of MDRO and is currently on cefepime and Flagyl at the halfway. Allergies/Adverse Reactions: Allergies Acetaminophen [From Tylenol] Allergy (Verified 12/10/19 16:25) Albuterol Allergy (Verified 12/10/19 16:25) Bee Venom Allergy (Verified 02/07/20 20:25) Lidocaine Allergy (Verified 12/10/19 16:25) Home Medications: Ambulatory Orders Cyanocobalamin [Vitamin B-12 Cr] 1,000 mcg GT DAILY 12/09/15 Ferrous Sulfate [Ferosul] 220 mg GT DAILY 12/09/15 Polyethylene Glycol 3350 [Miralax] 17 gm GT DAILY 12/09/15 RX: Bisacodyl 10 mg MS DAILY PRN 12/09/15 RX: Escitalopram Oxalate 10 mg GT DAILY 12/09/15 RX: Folic Acid 1 mg PEG DAILY 12/09/15 RX: Gabapentin 7.5 ml GT Q8H 12/09/15 RX: Guaifenesin 100 mg GT Q4H 12/09/15 RX: Riluzole 50 mg GT BID 12/09/15 RX: Simethicone 80 mg GT QID 12/09/15 RX: Tramadol HCl 100 mg GT Q4H PRN 12/09/15 Scopolamine Patch 1.5MG [Transderm-Scop Patch] 1 ea TD Q72H 12/09/15 Uti-Stat 30 ml GT BID 12/09/15 Alum & Mag Hydrox-Simethicone [Antacid Extra Strength An] 30 ml PEG TID PRN 08/06/17 Potassium Chloride Elixir [Kaochlor Liquid] 10 meq GT DAILY 08/06/17 RX: Diphenhydramine HCl 25 mg GT Q6H PRN 08/06/17 RX: Glycopyrrolate 2 mg GT Q6H 08/06/17 RX: Ipratropium [place] 2.5 ml INH QID 08/06/17 Ondansetron [Zofran Odt] 4 mg PO Q6H PRN 10/27/17 RX: Metoclopramide HCl [Metoclopramide Hydrochlor] 20 mg PEG Q8H 10/27/17 Allopurinol [Zyloprim] 100 mg PEG DAILY 03/27/18 Calcium Carbonate-Cholecalcife [Calcium 600+D3 600-400 mg-Unit] 1 tab PEG DAILY 03/27/18 Ibuprofen [Motrin Ib] 200 mg GT Q8H PRN 03/27/18 Meloxicam [Mobic] 7.5 mg GT DAILY 03/27/18 White Petrolatum-Mineral Oil [Lacri-Lube S.o.p] 1 oin OP QID PRN 03/27/18 Lactobacillus [Acidophilus] 1 cap PEG TID 02/27/19 Past Medical History (General) - Patient Medical History Hx Seizures: No Hx Stroke: No Hx Dementia: No Hx Asthma: No Hx of COPD: No Hx Cardiac Disorders: No Hx Congestive Heart Failure: No Hx Pacemaker: No Hx Hypertension: Yes Hx Thyroid Disease: No Hx Diabetes: No Hx Gastroesophageal Reflux: Yes Hx Renal Disease: No Hx Cancer: No Hx of HIV: No Hx Hepatitis C: No Hx MRSA: Yes - Sputum 2014 MRSA Source:: Sputum - Vaccination History Hx Tetanus, Diphtheria Vaccination: No Hx Influenza Vaccination: No Hx Pneumococcal Vaccination: Yes - Social History Hx Tobacco Use: No Hx Chewing Tobacco Use: No Hx Alcohol Use: No Hx Substance Use: No Hx Substance Use Treatment: No Hx Depression: No Hx Physical Abuse: No Hx Emotional Abuse: No Hx Suspected Abuse: No - Female History Patient : No Family Medical History - Family History Mother Family History: No Known Living Status: Still Living Progress - Progress Progress: 02/17/20 21:32 is now at the bedside. She states that the patient has been on Rocephin and Macrobid, not cefepime and Macrobid for the past several days due to UTI. She is concerned about increasing swelling to both hands. She states that he was started on diuretics and had his fluid decreased by half several months ago and became fairly dehydrated. No history of CHF or cardiac issues, will send BNP. 02/17/20 23:03 Multiple attempts by several RNs as well as by lab to obtain repeat lactate blood sample. He has no leukocytosis, no respiratory distress, chest x-ray is unchanged, initial lactate is normal. We have seen no evidence of elevated peak pressures that they noted on the vent at the halfway. His ABG is acceptable, his O2 sats are normal. I discussed the repeat lactate with the patient and his and involved them in shared decision making, and they are in agreement with plan to defer repeat lactate due to difficulty obtaining blood sample as it is unlikely to change our management at this time. Will discharge back to halfway. I will allow them to determine need for low-dose diuretic or decreased fluid intake. Strict warnings given to return to the emergency room for fever, respiratory distress, hypoxia, changes in mental status, or any other concerns. 02/17/20 23:05 DDX: Pneumonia, CHF, bronchitis MDM: Patient was transferred from halfway due to elevated peak pressures on the vent there. He has a longstanding history of ALS with a tracheostomy in place and is totally vent dependent. We have not seen any elevated peak pressures here. His PaO2 was slightly low, but O2 sats in the emergency department have been normal. Chest x-ray shows chronic opacification of the right lung, unchanged from previous chest x-rays. He has no leukocytosis, initial lactate is normal. Troponin and BNP are both normal. We attempted to draw blood for a repeat lactate but after multiple attempts by nursing staff and by phlebotomy, we were unable to obtain a second blood sample for lactate. Patient and refuse any further attempts. There is no indication for admission, no clear acute pathology noted. Recommended follow-up with his PCP next week for recheck. Strict warnings given to return for worsening DO Farhat Buckley #[id number] - Results/Orders Results/Orders: EKG reviewed by me at 1957. Normal sinus rhythm, rate of 94, normal axis, prolonged QTC at 485, no ST segment elevations or depressions. EXAM: XR Chest, 1 View CLINICAL HISTORY: The patient is 54 years old and is Male; elevate peak pressures on vent TECHNIQUE: Single upright portable view of the chest. COMPARISON: February 07, 2020. FINDINGS: Lungs: Left lung is clear. No pulmonary vascular congestion. Pleural space: Pleural thickening with airspace opacities in the right lung with volume loss, not significantly changed from February 07, 2020. No left pneumothorax or pleural effusion. Heart: Heart and mediastinal structures are shifted to the right, unchanged. Mediastinum: Unremarkable. Bones/joints: The bones and joints are unchanged as visualized. Tubes, lines and devices: Tracheostomy tube. Upper abdomen: No free air in the visualized upper abdomen. Gaseous distention of the visualized bowel in the upper abdomen. IMPRESSION: 1. Pleural thickening and airspace opacities in the right lung again noted with volume loss, not significantly changed from February 07, 2020. 2. Heart and medias tinal structures are shifted to the right, unchanged. Laboratory Tests 02/17/20 02/17/20 02/17/20 19:03 19:30 19:30 WBC 9.5 RBC 3.99 L Hgb 13.0 L Hct 38.4 L MCV 96.2 H MCH 32.5 H MCHC 33.8 RDW 14.5 Plt Count 257 MPV 6.8 L Absolute Neuts (auto) 7.70 H Absolute Lymphs (auto) 1.20 Absolute Monos (auto) 0.50 Absolute Eos (auto) 0.10 Absolute Basos (auto) 0.00 Neutrophils % 81.1 H Lymphocytes % 12.3 L Monocytes % 5.0 Eosinophils % 1.2 Basophils % 0.4 PT INR PTT (SP) pCO2 32 L pO2 70 L HCO3 19.7 ABG pH 7.394 ABG O2 Saturation 92.7 L ABG Base Excess -4.3 ABG Deoxyhemoglobin 7.2 H Oxyhemoglobin % 91.2 L Carboxyhemoglobin % 0.7 Methemoglobin % Sat 0.9 Calc Total Hemoglobin 12.7 L Sodium 135 Potassium 3.6 Chloride 106 Carbon Dioxide 21 Anion Gap 11.6 L BUN 23 H Creatinine < 0.40 L BUN/Creatinine Ratio 57.0 H Random Glucose 104 Serum Osmolality 274.1 L Lactic Acid Calcium 9.1 Total Bilirubin 0.6 AST 18 ALT 15 Alkaline Phosphatase 213 H Creatine Kinase 13 L CK-MB (CK-2) 1.3 CK-MB (CK-2) % Not Reportable Troponin I < 0.02 B-Natriuretic Peptide Serum Total Protein 8.5 H Albumin 3.4 Globulin 5.1 H Albumin/Globulin Ratio 0.7 L Urine Color Urine Appearance Urine pH Ur Specific Secretary Urine Protein Urine Glucose (UA) Urine Ketones Urine Blood Urine Nitrite Urine Bilirubin Urine Urobilinogen Ur Leukocyte Esterase Urine RBC Urine WBC Ur Epithelial Cells Amorphous Sediment Urine Bacteria 02/17/20 02/17/20 02/17/20 19:30 19:30 19:30 WBC RBC Hgb Hct MCV MCH MCHC RDW Plt Count MPV Absolute Neuts (auto) Absolute Lymphs (auto) Absolute Monos (auto) Absolute Eos (auto) Absolute Basos (auto) Neutrophils % Lymphocytes % Monocytes % Eosinophils % Basophils % PT 10.5 INR 1.06 PTT (SP) 25.4 pCO2 pO2 HCO3 ABG pH ABG O2 Saturation ABG Base Excess ABG Deoxyhemoglobin Oxyhemoglobin % Carboxyhemoglobin % Methemoglobin % Sat Calc Total Hemoglobin Sodium Potassium Chloride Carbon Dioxide Anion Gap BUN Creatinine BUN/Creatinine Ratio Random Glucose Serum Osmolality Lactic Acid 1.4 Calcium Total Bilirubin AST ALT Alkaline Phosphatase Creatine Kinase CK-MB (CK-2) CK-MB (CK-2) % Troponin I B-Natriuretic Peptide < 15.0 Serum Total Protein Albumin Globulin Albumin/Globulin Ratio Urine Color Urine Appearance Urine pH Ur Specific Secretary Urine Protein Urine Glucose (UA) Urine Ketones Urine Blood Urine Nitrite Urine Bilirubin Urine Urobilinogen Ur Leukocyte Esterase Urine RBC Urine WBC Ur Epithelial Cells Amorphous Sediment Urine Bacteria 02/17/20 20:05 WBC RBC Hgb Hct MCV MCH MCHC RDW Plt Count MPV Absolute Neuts (auto) Absolute Lymphs (auto) Absolute Monos (auto) Absolute Eos (auto) Absolute Basos (auto) Neutrophils % Lymphocytes % Monocytes % Eosinophils % Basophils % PT INR PTT (SP) pCO2 pO2 HCO3 ABG pH ABG O2 Saturation ABG Base Excess ABG Deoxyhemoglobin Oxyhemoglobin % Carboxyhemoglobin % Methemoglobin % Sat Calc Total Hemoglobin Sodium Potassium Chloride Carbon Dioxide Anion Gap BUN Creatinine BUN/Creatinine Ratio Random Glucose Serum Osmolality Lactic Acid Calcium Total Bilirubin AST ALT Alkaline Phosphatase Creatine Kinase CK-MB (CK-2) CK-MB (CK-2) % Troponin I B-Natriuretic Peptide Serum Total Protein Albumin Globulin Albumin/Globulin Ratio Urine Color Yellow Urine Appearance Cloudy Urine pH 6.0 Ur Specific Secretary 1.020 Urine Protein 100 H Urine Glucose (UA) Negative Urine Ketones Negative Urine Blood Small H Urine Nitrite Negative Urine Bilirubin Negative Urine Urobilinogen 0.2 Ur Leukocyte Esterase Large H Urine RBC 3-5 H Urine WBC 40-50 H Ur Epithelial Cells 0 Amorphous Sediment 1+ Urine Bacteria 3+ H Departure - Departure Clinical Impression: ALS (amyotrophic lateral sclerosis), Chronic respiratory failure Time of Disposition: 23:07 Disposition: Discharge to SNF Condition: Fair Departure Forms: ED Discharge - Pt. Copy, Patient Portal Self Enrollment Diet: resume usual diet Activity: increase activity as tolerated Referrals: CARLO GOODWIN [Primary Care Provider] - 1-2 Weeks Home Medications: Ambulatory Orders Cyanocobalamin [Vitamin B-12 Cr] 1,000 mcg GT DAILY 12/09/15 Ferrous Sulfate [Ferosul] 220 mg GT DAILY 12/09/15 Polyethylene Glycol 3350 [Miralax] 17 gm GT DAILY 12/09/15 RX: Bisacodyl 10 mg MS DAILY PRN 12/09/15 RX: Escitalopram Oxalate 10 mg GT DAILY 12/09/15 RX: Folic Acid 1 mg PEG DAILY 12/09/15 RX: Gabapentin 7.5 ml GT Q8H 12/09/15 RX: Guaifenesin 100 mg GT Q4H 12/09/15 RX: Riluzole 50 mg GT BID 12/09/15 RX: Simethicone 80 mg GT QID 12/09/15 RX: Tramadol HCl 100 mg GT Q4H PRN 12/09/15 Scopolamine Patch 1.5MG [Transderm-Scop Patch] 1 ea TD Q72H 12/09/15 Uti-Stat 30 ml GT BID 12/09/15 Alum & Mag Hydrox-Simethicone [Antacid Extra Strength An] 30 ml PEG TID PRN 08/06/17 Potassium Chloride Elixir [Kaochlor Liquid] 10 meq GT DAILY 08/06/17 RX: Diphenhydramine HCl 25 mg GT Q6H PRN 08/06/17 RX: Glycopyrrolate 2 mg GT Q6H 08/06/17 RX: Ipratropium [place] 2.5 ml INH QID 08/06/17 Ondansetron [Zofran Odt] 4 mg PO Q6H PRN 10/27/17 RX: Metoclopramide HCl [Metoclopramide Hydrochlor] 20 mg PEG Q8H 10/27/17 Allopurinol [Zyloprim] 100 mg PEG DAILY 03/27/18 Calcium Carbonate-Cholecalcife [Calcium 600+D3 600-400 mg-Unit] 1 tab PEG DAILY 03/27/18 Ibuprofen [Motrin Ib] 200 mg GT Q8H PRN 03/27/18 Meloxicam [Mobic] 7.5 mg GT DAILY 03/27/18 White Petrolatum-Mineral Oil [Lacri-Lube S.o.p] 1 oin OP QID PRN 03/27/18 Lactobacillus [Acidophilus] 1 cap PEG TID 02/27/19
[2020-02-17] MEDS: SODIUM CHLORIDE 0.9% 1000ML 1,000 ML IVS ONE (19:21)
[2020-02-17] MEDS: SODIUM CHLORIDE 0.9% (FLUSH) 10 ML SYG IV PRN (19:22)
[2020-02-17 19:40] VITALS: TEMP 98.6
--- NOTE | 2020-02-17 19:41 | RAD ---
EXAM: XR Chest, 1 View CLINICAL HISTORY: The patient is 54 years old and is Male; elevate peak pressures on vent TECHNIQUE: Single upright portable view of the chest. COMPARISON: February 07, 2020. FINDINGS: Lungs: Left lung is clear. No pulmonary vascular congestion. Pleural space: Pleural thickening with airspace opacities in the right lung with volume loss, not significantly changed from February 07, 2020. No left pneumothorax or pleural effusion. Heart: Heart and mediastinal structures are shifted to the right, unchanged. Mediastinum: Unremarkable. Bones/joints: The bones and joints are unchanged as visualized. Tubes, lines and devices: Tracheostomy tube. Upper abdomen: No free air in the visualized upper abdomen. Gaseous distention of the visualized bowel in the upper abdomen. IMPRESSION: 1. Pleural thickening and airspace opacities in the right lung again noted with volume loss, not significantly changed from February 07, 2020. 2. Heart and mediastinal structures are shifted to the right, unchanged. 3. Tracheostomy tube. Electronically signed by: Elena Herrera MD 02/17/2020 7:39 PM CDT
[2020-02-17] MEDS: fentaNYL CITRATE INJ 50 MCG/ML AMP IV ONE (20:59)
[2020-02-17 21:33] VITALS: O2SAT 99
[2020-02-17 23:03] VITALS: BP 155/101
== END 2020-02-17 23:30 ==
LOC: ER 18:37
DX: J96.10 Chronic respiratory failure, unspecified whether with hypoxia or hypercapnia (principal); G12.21 Amyotrophic lateral sclerosis; Z93.0 Tracheostomy status; Z99.11 Dependence on respirator [ventilator] status
CPT/HCPCS: 36415; 36600; 71045; 80053; 81001; 82550; 82553; 82803; 82805; 83605; 83880; 84484; 85025; 85610; 85730; 87040; 87077; 87086; 87186; 93005; 94002; 94760; A4216; J3010; J7030

== ENCOUNTER → 2020-03-09 | Outpatient (CLI) | payer MEDICARE, OTHER | LOC: GOCC 10:59 | PROVIDERS: ATTEND Internal Medicine | DX: R09.3 Abnormal sputum (principal); Z99.11 Dependence on respirator [ventilator] status; I10 Essential (primary) hypertension; R53.83 Other fatigue; N13.8 Other obstructive and reflux uropathy; R50.9 Fever, unspecified ==

== ENCOUNTER → 2020-04-08 | Outpatient (CLI) | payer MEDICARE, OTHER | LOC: GOCC 16:23 | PROVIDERS: ATTEND Internal Medicine | DX: R19.5 Other fecal abnormalities (principal) ==

== ENCOUNTER 2020-04-19 23:07 | Emergency (ER) | payer MEDICARE, OTHER ==
[2020-04-19] MEDS ORDERED: DOXYCYCLINE HYCLATE IV 100 MG in SODIUM CHLORIDE 0.9% 250ML 250 ML IVPB ONE (23:21)
[2020-04-19] MEDS ORDERED: metroNIDAZOLE IV PREMIX 500MG 500 MG in PREMIX BAG 1 BAG IVPB ONE (23:21)
[2020-04-19] MEDS ORDERED: PIPERACILLIN/TAZOBACTAM 3.375 GM in SODIUM CHLORIDE 0.9% 100ML 100 ML IVPB ONE (23:24)
--- NOTE | 2020-04-19 23:25 | ED.PDOC ---
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 Per EMS large amounts of secretions were suctioned from patient also pt reportedly passed kidney stone yesterday. Daughter at bedside pt unable to participate meaningfully in history. PPE worn-N95 surgical m ask with attached face shield over N95 goggles gloves and face shield over that Allergies/Adverse Reactions: Allergies Acetaminophen [From Tylenol] Allergy (Verified 12/10/19 16:25) Albuterol Allergy (Verified 12/10/19 16:25) Bee Venom Allergy (Verified 02/07/20 20:25) Lidocaine Allergy (Verified 12/10/19 16:25) Home Medications: Ambulatory Orders Bisacodyl 10 mg MS DAILY PRN 12/09/15 Cyanocobalamin [Vitamin B-12 Cr] 1,000 mcg GT DAILY 12/09/15 Escitalopram Oxalate 10 mg GT DAILY 12/09/15 Ferrous Sulfate [Ferosul] 220 mg GT DAILY 12/09/15 Folic Acid 1 mg PEG DAILY 12/09/15 Gabapentin 7.5 ml GT Q8H 12/09/15 Guaifenesin 100 mg GT Q4H 12/09/15 Polyethylene Glycol 3350 [Miralax] 17 gm GT DAILY 12/09/15 Riluzole 50 mg GT BID 12/09/15 Scopolamine Patch 1.5MG [Transderm-Scop Patch] 1 ea TD Q72H 12/09/15 Simethicone 80 mg GT QID 12/09/15 Tramadol HCl 100 mg GT Q4H PRN 12/09/15 Uti-Stat 30 ml GT BID 12/09/15 Alum & Mag Hydrox-Simethicone [Antacid Extra Strength An] 30 ml PEG TID PRN 08/06/17 Diphenhydramine HCl 25 mg GT Q6H PRN 08/06/17 Glycopyrrolate 2 mg GT Q6H 08/06/17 Ipratropium [place] 2.5 ml INH QID 08/06/17 Potassium Chloride Elixir [Kaochlor Liquid] 10 meq GT DAILY 08/06/17 Metoclopramide HCl [Metoclopramide Hydrochlor] 20 mg PEG Q8H 10/27/17 Ondansetron [Zofran Odt] 4 mg PO Q6H PRN 10/27/17 Allopurinol [Zyloprim] 100 mg PEG DAILY 03/27/18 Calcium Carbonate-Cholecalcife [Calcium 600+D3 600-400 mg-Unit] 1 tab PEG DAILY 03/27/18 Ibuprofen [Motrin Ib] 200 mg GT Q8H PRN 03/27/18 Meloxicam [Mobic] 7.5 mg GT DAILY 03/27/18 White Petrolatum-Mineral Oil [Lacri-Lube S.o.p] 1 oin OP QID PRN 03/27/18 Lactobacillus [Acidophilus] 1 cap PEG TID 02/27/19 Review of Systems - Review of Systems Constitutional: States: see HPI EENTM: States: see HPI Respiratory: States: see HPI Cardiology: States: see HPI Gastrointestinal/Abdominal: States: see HPI Genitourinary: States: see HPI Musculoskeletal: States: see HPI Skin: States: see HPI Neurological: States: see HPI Endocrine: States: see HPI Unable to Obtain Due To: condition, clinical condition Past Medical History (General) - Patient Medical History Hx Seizures: No Hx Stroke: No Hx Dementia: No Hx Asthma: No Hx of COPD: No Hx Cardiac Disorders: No Hx Congestive Heart Failure: No Hx Pacemaker: No Hx Hypertension: Yes Hx Thyroid Disease: No Hx Diabetes: No Hx Gastroesophageal Reflux: Yes Hx Renal Disease: No Hx Cancer: No Hx of HIV: No Hx Hepatitis C: No Hx MRSA: Yes - Sputum 2013 MRSA Source:: Sputum - Vaccination History Hx Tetanus, Diphtheria Vaccination: No Hx Influenza Vaccination: No Hx Pneumococcal Vaccination: Yes - Social History Hx Tobacco Use: No Hx Chewing Tobacco Use: No Hx Alcohol Use: No Hx Substance Use: No Hx Substance Use Treatment: No Hx Depression: No Hx Physical Abuse: No Hx Emotional Abuse: No Hx Suspected Abuse: No - Female History Patient : No Family Medical History - Family History Mother Family History: No Known Living Status: Still Living Physical Exam - Physical Exam General Appearance: No apparent distress, Ill Appearing Eye Exam: bilateral normal Ears, Nose, Throat: normal ENT inspection Neck: other - tacheostomy tube connected to ventilator Respiratory: decreased breath sounds, crackles Cardiovascular/Chest: regular rate, rhythm Gastrointestinal/Abdominal: non tender, soft Rectal Exam: deferred Back Exam: normal inspection Extremity: other - immobile Neurologic: other - ALS significant motor and sensory baseline progressive deficits Skin Exam: other - damp Progress - Progress Progress: 04/19/20 23:33 A/P-Hypoxia, ALS, Ventilator Associated Pneumonia, Healthcare [facility] Pneumonia-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 ekg cxr cbc cmp lactate trop blood cultures urine zosyn doxycycline flagyl TRANSFER [facility] for pulmonary 04/20/20 01:52 Laboratory Tests 04/19/20 04/19/20 04/19/20 00:13 00:45 00:45 WBC 13.7 H RBC 4.01 L Hgb 12.7 L Hct 37.4 L MCV 93.3 MCH 31.8 H MCHC 34.0 RDW 15.1 H Plt Count 257 MPV 6.9 L Absolute Neuts (auto) 12.40 H Absolute Lymphs (auto) 0.40 L Absolute Monos (auto) 0.70 Absolute Eos (auto) 0.10 Absolute Basos (auto) 0.10 Neutrophils % 90.5 H Lymphocytes % 3.1 L Monocytes % 5.5 Eosinophils % 0.5 L Basophils % 0.4 PT 10.4 INR 1.05 PTT (SP) 25.6 Sodium Potassium Chloride Carbon Dioxide Anion Gap BUN Creatinine BUN/Creatinine Ratio Random Glucose Serum Osmolality Lactic Acid Calcium Total Bilirubin AST ALT Alkaline Phosphatase Troponin I Serum Total Protein Albumin Globulin Albumin/Globulin Ratio Urine Color Yellow Urine Appearance Cloudy Urine pH 7.5 Ur Specific [place] 1.015 Urine Protein Trace Urine Glucose (UA) Negative Urine Ketones Negative Urine Blood Large H Urine Nitrite Negative Urine Bilirubin Negative Urine Urobilinogen 0.2 Ur Leukocyte Esterase Large H Urine RBC 10-20 H Urine WBC 30-40 H Ur Epithelial Cells 3-5 Calcium Oxalate Crystal 1+ Amorphous Sediment 2+ Urine Bacteria 2+ H 04/19/20 04/19/20 04/19/20 00:45 00:45 00:45 WBC RBC Hgb Hct MCV MCH MCHC RDW Plt Count MPV Absolute Neuts (auto) Absolute Lymphs (auto) Absolute Monos (auto) Absolute Eos (auto) Absolute Basos (auto) Neutrophils % Lymphocytes % Monocytes % Eosinophils % Basophils % PT INR PTT (SP) Sodium 137 Potassium 3.1 L Chloride 109 Carbon Dioxide 19 L Anion Gap 12.1 BUN 22 H Creatinine < 0.40 L BUN/Creatinine Ratio 55.0 H Random Glucose 161 H Serum Osmolality 280.6 Lactic Acid 1.7 Calcium 9.0 Total Bilirubin 1.0 AST 24 ALT 19 Alkaline Phosphatase 253 H Troponin I < 0.02 Serum Total Protein 8.3 H Albumin 3.3 Globulin 5.0 H Albumin/Globulin Ratio 0.7 L Urine Color Urine Appearance Urine pH Ur Specific [place] Urine Protein Urine Glucose (UA) Urine Ketones Urine Blood Urine Nitrite Urine Bilirubin Urine Urobilinogen Ur Leukocyte Esterase Urine RBC Urine WBC Ur Epithelial Cells Calcium Oxalate Crystal Amorphous Sediment Urine Bacteria 04/20/20 01:56 EXAM DESCRIPTION: Chest,1 View CLINICAL HISTORY: 54 years Male ALS Hypoxia h/o pneumonia COMPARISON: 02/17/2020. FINDINGS: There is a tracheostomy tube in place. There is volume loss in the right lung with elevation of the right hemidiaphragm and shift of the heart and mediastinum towards the right. There is opacity overlying the right lung which is more pronounced compared to the previous study with almost no aerated lung identified. There is mild atelectasis at the left lung base. No pneumothorax is identified. IMPRESSION: There are chronic appearing changes in the right lung with marked volume loss. There is increased opacity overlying the right lung since the previous study concerning for a superimposed infectious process/pneumonia. Electronically signed by: Elpidio Gamboa MD 04/20/2020 12:43 AM CDT - Results/Orders Results/Orders: EKG-non specific TW changes Sinus Tachycardia 115bpm motion artifact Laboratory Tests 04/19/20 04/19/20 04/19/20 00:13 00:45 00:45 WBC 13.7 H RBC 4.01 L Hgb 12.7 L Hct 37.4 L MCV 93.3 MCH 31.8 H MCHC 34.0 RDW 15.1 H Plt Count 257 MPV 6.9 L Absolute Neuts (auto) 12.40 H Absolute Lymphs (auto) 0.40 L Absolute Monos (auto) 0.70 Absolute Eos (auto) 0.10 Absolute Basos (auto) 0.10 Neutrophils % 90.5 H Lymphocytes % 3.1 L Monocytes % 5.5 Eosinophils % 0.5 L Basophils % 0.4 PT 10.4 INR 1.05 PTT (SP) 25.6 Sodium Potassium Chloride Carbon Dioxide Anion Gap BUN Creatinine BUN/Creatinine Ratio Random Glucose Serum Osmolality Lactic Acid Calcium Total Bilirubin AST ALT Alkaline Phosphatase Serum Total Protein Albumin Globulin Albumin/Globulin Ratio Urine Color Yellow Urine Appearance Cloudy Urine pH 7.5 Ur Specific [place] 1.015 Urine Protein Trace Urine Glucose (UA) Negative Urine Ketones Negative Urine Blood Large H Urine Nitrite Negative Urine Bilirubin Negative Urine Urobilinogen 0.2 Ur Leukocyte Esterase Large H Urine RBC 10-20 H Urine WBC 30-40 H Ur Epithelial Cells 3-5 Calcium Oxalate Crystal 1+ Amorphous Sediment 2+ Urine Bacteria 2+ H 04/19/20 04/19/20 00:45 00:45 WBC RBC Hgb Hct MCV MCH MCHC RDW Plt Count MPV Absolute Neuts (auto) Absolute Lymphs (auto) Absolute Monos (auto) Absolute Eos (auto) Absolute Basos (auto) Neutrophils % Lymphocytes % Monocytes % Eosinophils % Basophils % PT INR PTT (SP) Sodium 137 Potassium 3.1 L Chloride 109 Carbon Dioxide 19 L Anion Gap 12.1 BUN 22 H Creatinine < 0.40 L BUN/Creatinine Ratio 55.0 H Random Glucose 161 H Serum Osmolality 280.6 Lactic Acid 1.7 Calcium 9.0 Total Bilirubin 1.0 AST 24 ALT 19 Alkaline Phosphatase 253 H Serum Total Protein 8.3 H Albumin 3.3 Globulin 5.0 H Albumin/Globulin Ratio 0.7 L Urine Color Urine Appearance Urine pH Ur Specific [place] Urine Protein Urine Glucose (UA) Urine Ketones Urine Blood Urine Nitrite Urine Bilirubin Urine Urobilinogen Ur Leukocyte Esterase Urine RBC Urine WBC Ur Epithelial Cells Calcium Oxalate Crystal Amorphous Sediment Urine Bacteria Spoke to Dr. Bazan who accepts transfer [facility] Departure - Departure Clinical Impression: Ventilator associated pneumonia, HCAP (healthcare-associated pneumonia), Hypoxia, Hypokalemia Leukocytosis Qualifiers: Leukocytosis type: unspecified Qualified Code(s): D72.829 - Elevated white blood cell count, unspecified Hematuria Qualifiers: Hematuria type: unspecified type Qualified Code(s): R31.9 - Hematuria, unspecified Disposition: Transfer to Hospital Condition: Fair Departure Forms: ED Discharge - Pt. Copy, Patient Portal Self Enrollment Referrals: CARLO GOODWIN [Primary Care Provider] - 1-2 Days Home Medications: Ambulatory Orders Bisacodyl 10 mg MS DAILY PRN 12/09/15 Cyanocobalamin [Vitamin B-12 Cr] 1,000 mcg GT DAILY 12/09/15 Escitalopram Oxalate 10 mg GT DAILY 12/09/15 Ferrous Sulfate [Ferosul] 220 mg GT DAILY 12/09/15 Folic Acid 1 mg PEG DAILY 12/09/15 Gabapentin 7.5 ml GT Q8H 12/09/15 Guaifenesin 100 mg GT Q4H 12/09/15 Polyethylene Glycol 3350 [Miralax] 17 gm GT DAILY 12/09/15 Riluzole 50 mg GT BID 12/09/15 Scopolamine Patch 1.5MG [Transderm-Scop Patch] 1 ea TD Q72H 12/09/15 Simethicone 80 mg GT QID 12/09/15 Tramadol HCl 100 mg GT Q4H PRN 12/09/15 Uti-Stat 30 ml GT BID 12/09/15 Alum & Mag Hydrox-Simethicone [Antacid Extra Strength An] 30 ml PEG TID PRN 08/06/17 Diphenhydramine HCl 25 mg GT Q6H PRN 08/06/17 Glycopyrrolate 2 mg GT Q6H 08/06/17 Ipratropium [place] 2.5 ml INH QID 08/06/17 Potassium Chloride Elixir [Kaochlor Liquid] 10 meq GT DAILY 08/06/17 Metoclopramide HCl [Metoclopramide Hydrochlor] 20 mg PEG Q8H 10/27/17 Ondansetron [Zofran Odt] 4 mg PO Q6H PRN 10/27/17 Allopurinol [Zyloprim] 100 mg PEG DAILY 03/27/18 Calcium Carbonate-Cholecalcife [Calcium 600+D3 600-400 mg-Unit] 1 tab PEG DAILY 03/27/18 Ibuprofen [Motrin Ib] 200 mg GT Q8H PRN 03/27/18 Meloxicam [Mobic] 7.5 mg GT DAILY 03/27/18 White Petrolatum-Mineral Oil [Lacri-Lube S.o.p] 1 oin OP QID PRN 03/27/18 Lactobacillus [Acidophilus] 1 cap PEG TID 02/27/19 Transfer to Outside Facility - Transfer Information Decision to Transfer Date: 04/20/20 Decision to Transfer Time: 02:15 Reason for Transfer: specialized care not available Accepting Provider:: Dr. Bazan Accepting Facility: [facility]
--- NOTE | 2020-04-20 00:44 | RAD ---
EXAM DESCRIPTION: Chest,1 View CLINICAL HISTORY: 54 years Male ALS Hypoxia h/o pneumonia COMPARISON: 02/17/2020. FINDINGS: There is a tracheostomy tube in place. There is volume loss in the right lung with elevation of the right hemidiaphragm and shift of the heart and mediastinum towards the right. There is opacity overlying the right lung which is more pronounced compared to the previous study with almost no aerated lung identified. There is mild atelectasis at the left lung base. No pneumothorax is identified. IMPRESSION: There are chronic appearing changes in the right lung with marked volume loss. There is increased opacity overlying the right lung since the previous study concerning for a superimposed infectious process/pneumonia. Electronically signed by: Elpidio Gamboa MD 04/20/2020 12:43 AM CDT
[2020-04-20 02:29] VITALS: O2SAT 93
[2020-04-20 02:32] VITALS: TEMP 96.2
[2020-04-20 02:52] VITALS: BP 96/72
== END 2020-04-20 02:52 | disposition short-term general hospital (02) ==
LOC: ER 23:07
DX: J95.851 Ventilator associated pneumonia (principal); R09.02 Hypoxemia; E87.6 Hypokalemia; D72.829 Elevated white blood cell count, unspecified; R31.9 Hematuria, unspecified; R00.0 Tachycardia, unspecified; I10 Essential (primary) hypertension; K21.9 Gastro-esophageal reflux disease without esophagitis; Z86.14 Personal history of Methicillin resistant Staphylococcus aureus infection; Z79.899 Other long term (current) drug therapy; Z88.6 Allergy status to analgesic agent; Z88.5 Allergy status to narcotic agent; Z20.828 Contact with and (suspected) exposure to other viral communicable diseases
CPT/HCPCS: 71045; 80053; 81001; 83605; 84484; 85025; 85610; 85730; 87086; 87635; 93005; 94002; 94003; J2543; J3490; J7050

== ENCOUNTER 2020-04-30 23:29 | Emergency (ER) | payer MEDICARE, OTHER ==
[2020-04-30] MEDS ORDERED: SODIUM CHLORIDE 0.9% 1000ML 1,000 ML IVS PRN (23:40)
--- NOTE | 2020-04-30 23:44 | ED.PDOC ---
History of Present Illness - General Time Seen by Provider: 04/30/20 23:31 Source: RN notes reviewed, Vital Signs reviewed, EMS notes reviewed, family, snf records - History of Present Illness Initial Comments: 54 yo male with ALS was discharged 3 days ago after one week hospital stay for vent associated pneumonia. Today per snf was saturating 89%. EMS arrived adjusted his trach and now sating 99%. Patient nonverbal. Timing/Duration: 1-3 hours Severity: mild Allergies/Adverse Reactions: Allergies Acetaminophen [From Tylenol] Allergy (Verified 12/10/19 16:25) Albuterol Allergy (Verified 12/10/19 16:25) Bee Venom Allergy (Verified 02/07/20 20:25) Lidocaine Allergy (Verified 12/10/19 16:25) Home Medications: Ambulatory Orders Bisacodyl 10 mg [place] DAILY PRN 12/09/15 Cyanocobalamin [Vitamin B-12 Cr] 1,000 mcg GT DAILY 12/09/15 Escitalopram Oxalate 10 mg GT DAILY 12/09/15 Ferrous Sulfate [Ferosul] 220 mg GT DAILY 12/09/15 Folic Acid 1 mg PEG DAILY 12/09/15 Gabapentin 7.5 ml GT Q8H 12/09/15 Guaifenesin 100 mg GT Q4H 12/09/15 Polyethylene Glycol 3350 [Miralax] 17 gm GT DAILY 12/09/15 Riluzole 50 mg GT BID 12/09/15 Scopolamine Patch 1.5MG [Transderm-Scop Patch] 1 ea TD Q72H 12/09/15 Simethicone 80 mg GT QID 12/09/15 Tramadol HCl 100 mg GT Q4H PRN 12/09/15 Uti-Stat 30 ml GT BID 12/09/15 Alum & Mag Hydrox-Simethicone [Antacid Extra Strength An] 30 ml PEG TID PRN 08/06/17 Diphenhydramine HCl 25 mg GT Q6H PRN 08/06/17 Glycopyrrolate 2 mg GT Q6H 08/06/17 Ipratropium [place] 2.5 ml INH QID 08/06/17 Potassium Chloride Elixir [Kaochlor Liquid] 10 meq GT DAILY 08/06/17 Metoclopramide HCl [Metoclopramide Hydrochlor] 20 mg PEG Q8H 10/27/17 Ondansetron [Zofran Odt] 4 mg PO Q6H PRN 10/27/17 Allopurinol [Zyloprim] 100 mg PEG DAILY 03/27/18 Calcium Carbonate-Cholecalcife [Calcium 600+D3 600-400 mg-Unit] 1 tab PEG DAILY 03/27/18 Ibuprofen [Motrin Ib] 200 mg GT Q8H PRN 03/27/18 Meloxicam [Mobic] 7.5 mg GT DAILY 03/27/18 White Petrolatum-Mineral Oil [Lacri-Lube S.o.p] 1 oin OP QID PRN 03/27/18 Lactobacillus [Acidophilus] 1 cap PEG TID 02/27/19 Cefdinir 300 mg PO BID #14 capsule 05/01/20 Clindamycin HCl [Clindamycin Hydrochloride] 450 mg PO TID #21 cap 05/01/20 Review of Systems - Review of Systems Constitutional: Denies: chills, fever EENTM: Denies: eye pain Respiratory: Denies: cough, short of breath Cardiology: Denies: chest pain Gastrointestinal/Abdominal: Denies: abdominal pain, nausea, vomiting Genitourinary: Denies: dysuria Musculoskeletal: States: joint pain - hip pain, chronic Skin: Denies: rash Neurological: Denies: headache Endocrine: Denies: intolerance to cold, intolerance to heat Hematologic/Lymphatic: States: anemia. Denies: blood clots, easy bleeding, easy bruising Unable to Obtain Due To: clinical condition - provided ROS Past Medical History (General) - Patient Medical History Hx Seizures: No Hx Stroke: No Hx Dementia: No Hx Asthma: No Hx of COPD: No Hx Cardiac Disorders: No Hx Congestive Heart Failure: No Hx Pacemaker: No Hx Hypertension: Yes Hx Thyroid Disease: No Hx Diabetes: No Hx Gastroesophageal Reflux: Yes Hx Renal Disease: No Hx Cancer: No Hx of HIV: No Hx Hepatitis C: No Hx MRSA: Yes - Sputum 2013 MRSA Source:: Sputum - Vaccination History Hx Tetanus, Diphtheria Vaccination: No Hx Influenza Vaccination: No Hx Pneumococcal Vaccination: Yes - Social History Hx Tobacco Use: No Hx Chewing Tobacco Use: No Hx Alcohol Use: No Hx Substance Use: No Hx Substance Use Treatment: No Hx Depression: No Hx Physical Abuse: No Hx Emotional Abuse: No Hx Suspected Abuse: No - Female History Patient : No Family Medical History - Family History Mother Family History: No Known Living Status: Still Living Physical Exam - Physical Exam General Appearance: Alert, Comfortable, No apparent distress, Well Developed, Well Nourished Eyes, Ears, Nose, Throat Exam: normal ENT inspection, TMs normal, other - crusting noted on bilateral eyes, no erythema or conjunctivits Neck: supple, normal inspection, other - trach in place, trach without infection Respiratory: chest non-tender, lungs clear, no respiratory distress, no accessory muscle use, rales Cardiovascular/Chest: normal peripheral pulses, regular rate, rhythm, no gallop Peripheral Pulses: radial,right: 2+, radial,left: 2+ Gastrointestinal/Abdominal: normal bowel sounds, non tender, soft Rectal Exam: deferred Extremity: non-tender, normal inspection, no pedal edema, no calf tenderness, normal capillary refill, other - atrophy Neurologic: other - at baseline per , rspons with eye movements, up for yes, down for no Skin Exam: warm/dry Progress - Progress Progress: 05/01/20 01:00 partial ddx: trach displacement, pneumonia, uti, sepsis K 3.2, replaced 40 meq KCl. Given 1 L NS bolus. 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 I do not suspect blood loss at this time. CT atelectic changes appears worse when compared to Sep 2019; however, given his recent pneumonia, overall improved status compared to 11 days ago, I do not feel he has reoccurrence of pneumonia, afebrile. saturating well. I feel that the destaurtation were due to trach tube displacement. patient may have aspirated at that time. due to prone to getting pneumonia will prophylactic treat for aspiration pneumonia with one week of clindamycin. Will give first dose here. Urine infection recently sensitive to ceftriaxone. patient has chronic urine colonization. no fever. WIll give ceftriaxone, and dc on cefdinir as this was sensitive in last culture. Will get repeat urine cultures; however, and change if indicated. The data reviewed when caring for this patient included: nurse notes, prior records, etc. The history and assessments from nurses notes were reviewed and considered, and the patient's home medication list was also reviewed and considered. My assessment and the results of testing completed here in the ED were discussed with the patient/family. All questions were answered, and they express understanding of my assessment and the plan. They have been instructed to return if their symptoms worsen, and have been asked to follow up with their primary care physician to recheck today's presenting complaint. return precautions given. Patient was discharged back to SNF in stable condition. VSS stable upon discharge. Vicki Hein DO #[id number] - Results/Orders Results/Orders: CXR: . Stable appearance of the chest with chronic appearing opacities throughout the right lung with volume loss. Persistent minimal left basilar opacities which may be related to atelectasis. CT chest: 1. Chronic diffuse opacification and bronchiectasis throughout the right lung, unchanged. 2. Scattered left lung atelectasis/scar, most pronounced at the base of the left lower lobe. 3. Minimal left lower lobe centrilobular nodularity, nonspecific. Could represent low-grade infection or small volume aspiration. 04/30/20 23:40 Sodium Chloride 0.9% 1000ML [Ns 1000 ml] 1,000 ml IVS STAT RESPIRATORY PANEL 2 Stat 04/30/20 23:45 EKG STAT 05/01/20 01:35 Clindamycin IV 600Mg [Cleocin IV 600mg] 600 mg Premix Bag 1 bag IVPB ONCE 05/01/20 01:50 URINE CULTURE W/COLONY COUNT Stat 05/01/20 02:08 Discharge Stat Laboratory Results WBC 10.9 K/mm3 (4.8-10.8) H 05/01/20 00:01 RBC 3.37 M/mm3 (4.70-6.10) L 05/01/20 00:01 Hgb 10.6 gm/dL (14.0-18.0) L 05/01/20 00:01 Hct 31.0 % (42.0-52.0) L 05/01/20 00:01 MCV 91.9 fl (80.0-94.0) 05/01/20 00:01 MCH 31.5 pg (27.0-31.0) H 05/01/20 00:01 MCHC 34.2 g/dL (33.0-37.0) 05/01/20 00:01 RDW 15.7 % (11.5-14.5) H 05/01/20 00:01 Plt Count 342 K/mm3 (130-400) 05/01/20 00:01 MPV 7.0 fl (7.40-10.4) L 05/01/20 00:01 Absolute Neuts (auto) 9.00 K/uL (1.8-6.8) H 05/01/20 00:01 Absolute Lymphs (auto) 0.90 K/uL (1.0-3.4) L 05/01/20 00:01 Absolute Monos (auto) 0.90 K/uL (0.2-0.8) H 05/01/20 00:01 Absolute Eos (auto) 0.10 K/uL (0.0-0.4) 05/01/20 00:01 Absolute Basos (auto) 0.00 K/uL (0.0-0.1) 05/01/20 00:01 Neutrophils % 82.4 % (42.0-78.0) H 05/01/20 00:01 Lymphocytes % 8.2 % (20.0-50.0) L 05/01/20 00:01 Monocytes % 8.0 % (2.0-9.0) 05/01/20 00:01 Eosinophils % 1.0 % (1.0-5.0) 05/01/20 00:01 Basophils % 0.4 % (0.0-2.0) 05/01/20 00:01 PT 10.8 SECONDS (9.0-10.9) 05/01/20 00:01 INR 1.09 (0.9-1.15) 05/01/20 00:01 PTT (SP) 23.7 SECONDS (21.8-31.6) 05/01/20 00:01 Sodium 134 mmol/L (135-145) L 05/01/20 00:01 Potassium 3.2 mmol/L (3.6-5.0) L 05/01/20 00:01 Chloride 100 mmol/L (101-111) L 05/01/20 00:01 Carbon Dioxide 23 mmol/L (21-31) 05/01/20 00:01 Anion Gap 14.2 (12-18) 05/01/20 00:01 BUN 16 mg/dL (7-18) 05/01/20 00:01 Creatinine < 0.40 mg/dL (0.6-1.3) L 05/01/20 00:01 BUN/Creatinine Ratio 40.0 (10-20) H 05/01/20 00:01 Random Glucose 117 mg/dL (70-105) H 05/01/20 00:01 Serum Osmolality 270.5 mOsm/L (275-295) L 05/01/20 00:01 Calcium 8.8 mg/dL (8.4-10.2) 05/01/20 00:01 Total Bilirubin 0.9 mg/dL (0.2-1.0) 05/01/20 00:01 AST 27 IU/L (10-42) 05/01/20 00:01 ALT 47 IU/L (10-60) 05/01/20 00:01 Alkaline Phosphatase 399 IU/L (42-121) H 05/01/20 00:01 B-Natriuretic Peptide < 15.0 pg/ml (0-100) 05/01/20 00:01 Serum Total Protein 7.8 gm/dL (6.4-8.2) 05/01/20 00:01 Albumin 2.6 g/dl (3.2-5.5) L 05/01/20 00:01 Globulin 5.2 gm/dL (2.3-3.5) H 05/01/20 00:01 Albumin/Globulin Ratio 0.5 (1.1-1.9) L 05/01/20 00:01 Urine Color Yellow (Yellow) 05/01/20 01:50 Urine Appearance Cloudy (Clear) 05/01/20 01:50 Urine pH 6.5 (4.5-7.8) 05/01/20 01:50 Ur Specific [place] 1.020 (1.005-1.030) 05/01/20 01:50 Urine Protein Trace mg/dL 05/01/20 01:50 Urine Glucose (UA) Negative mg/dL (Negative) 05/01/20 01:50 Urine Ketones Negative mg/dL (NEGATIVE) 05/01/20 01:50 Urine Blood Moderate (Negative) H 05/01/20 01:50 Urine Nitrite Positive H 05/01/20 01:50 Urine Bilirubin Negative (NEGATIVE) 05/01/20 01:50 Urine Urobilinogen 0.2 mg/dL (0.2-1.0) 05/01/20 01:50 Ur Leukocyte Esterase Large (Negative) H 05/01/20 01:50 Urine RBC 10-20 /hpf H 05/01/20 01:50 Urine WBC 40-50 /hpf H 05/01/20 01:50 Ur Epithelial Cells 0-1 /hpf 05/01/20 01:50 Amorphous Sediment 2+ 05/01/20 01:50 Urine Bacteria 3+ H 05/01/20 01:50 - EKG/XRAY/CT EKG: Sinus Comments: HR 93, NSR, normal intervals, no ischemia, normal ekg XRAY: chest - no significant change from previous. Departure - Departure Clinical Impression: ALS (amyotrophic lateral sclerosis), Hypokalemia, Hyponatremia, UTI (urinary tract infection) due to urinary indwelling Hernandez catheter Tracheostomy complication Qualifiers: Tracheostomy complication: unspecified Qualified Code(s): J95.00 - Unspecified tracheostomy complication Anemia Qualifiers: Anemia type: unspecified type Qualified Code(s): D64.9 - Anemia, unspecified Aspiration into airway Qualifiers: Encounter type: initial encounter Qualified Code(s): T17.908A - Unspecified foreign body in respiratory tract, part unspecified causing other injury, initial encounter UTI (urinary tract infection) Qualifiers: Urinary tract infection type: catheter-associated UTI Indwelling urinary catheter type: unspecified Encounter type: initial encounter Qualified Code(s): T83.511A - Infection and inflammatory reaction due to indwelling urethral catheter, initial encounter Time of Disposition: 01:36 Disposition: Discharge to SNF Instructions: Aspiration Pneumonia, How to Care for a Tracheostomy Referrals: CARLO GOODWIN [Primary Care Provider] - 1-2 Days Prescriptions: Cefdinir 300 mg PO BID #14 capsule Clindamycin HCl [Clindamycin Hydrochloride] 450 mg PO TID #21 cap Home Medications: Ambulatory Orders Bisacodyl 10 mg MA DAILY PRN 12/09/15 Cyanocobalamin [Vitamin B-12 Cr] 1,000 mcg GT DAILY 12/09/15 Escitalopram Oxalate 10 mg GT DAILY 12/09/15 Ferrous Sulfate [Ferosul] 220 mg GT DAILY 12/09/15 Folic Acid 1 mg PEG DAILY 12/09/15 Gabapentin 7.5 ml GT Q8H 12/09/15 Guaifenesin 100 mg GT Q4H 12/09/15 Polyethylene Glycol 3350 [Miralax] 17 gm GT DAILY 12/09/15 Riluzole 50 mg GT BID 12/09/15 Scopolamine Patch 1.5MG [Transderm-Scop Patch] 1 ea TD Q72H 12/09/15 Simethicone 80 mg GT QID 12/09/15 Tramadol HCl 100 mg GT Q4H PRN 12/09/15 Uti-Stat 30 ml GT BID 12/09/15 Alum & Mag Hydrox-Simethicone [Antacid Extra Strength An] 30 ml PEG TID PRN 08/06/17 Diphenhydramine HCl 25 mg GT Q6H PRN 08/06/17 Glycopyrrolate 2 mg GT Q6H 08/06/17 Ipratropium [place] 2.5 ml INH QID 08/06/17 Potassium Chloride Elixir [Kaochlor Liquid] 10 meq GT DAILY 08/06/17 Metoclopramide HCl [Metoclopramide Hydrochlor] 20 mg PEG Q8H 10/27/17 Ondansetron [Zofran Odt] 4 mg PO Q6H PRN 10/27/17 Allopurinol [Zyloprim] 100 mg PEG DAILY 03/27/18 Calcium Carbonate-Cholecalcife [Calcium 600+D3 600-400 mg-Unit] 1 tab PEG DAILY 03/27/18 Ibuprofen [Motrin Ib] 200 mg GT Q8H PRN 03/27/18 Meloxicam [Mobic] 7.5 mg GT DAILY 03/27/18 White Petrolatum-Mineral Oil [Lacri-Lube S.o.p] 1 oin OP QID PRN 03/27/18 Lactobacillus [Acidophilus] 1 cap PEG TID 02/27/19 Cefdinir 300 mg PO BID #14 capsule 05/01/20 Clindamycin HCl [Clindamycin Hydrochloride] 450 mg PO TID #21 cap 05/01/20
--- NOTE | 2020-05-01 00:24 | RAD ---
EXAM DESCRIPTION: Chest,1 View CLINICAL HISTORY: sob COMPARISON: 04/20/2020 FINDINGS: Single frontal view of the chest. Tubes and lines: Tracheostomy. Cardiomediastinal silhouette: Stable Lungs: Minimal left basilar opacity. Confluent right lung opacity with minimal aeration. No definite pneumothorax. Volume loss in the right lung with persistent [id number] mediastinal shift. Bones: Degenerative change of the shoulders and spine. Upper abdomen: No acute abnormality. IMPRESSION: 1. Stable appearance of the chest with chronic appearing opacities throughout the right lung with volume loss. Persistent minimal left basilar opacities which may be related to atelectasis however superimposed pneumonic process in either lung could contribute to these appearances. Electronically signed by: Umbreto Mercado 05/01/2020 12:22 AM CDT
[2020-05-01] MEDS ORDERED: POTASSIUM CHLORIDE ELIXIR 20 MEQ/15 ML UD GT ONE (00:31)
[2020-05-01] MEDS ORDERED: MORPHINE SULFATE INJ 10 MG/ML VIAL IV ONE (00:45)
--- NOTE | 2020-05-01 01:30 | CT ---
EXAM: Chest w/o Contrast HISTORY: shortness of breath COMPARISON: None TECHNIQUE: Contiguous axial images of the chest were obtained from the thoracic inlet to the upper abdomen without intravenous contrast followed by multiplanar reformats. This exam was performed according to our departmental dose-optimization program, which includes automated exposure control, adjustment of the mA and/or kV according to patient size and/or use of iterative reconstruction technique. FINDINGS: There is chronic extensive consolidation throughout the right lung with bronchiectatic air bronchograms and associated volume loss resulting in rightward shift of the mediastinum, similar to previous exams. Within the left lung, there is atelectasis/scar within the dependent base of the left lower lobe, as well as scattered areas of linear atelectasis also from the left lung. Subtle scattered centrilobular nodularity also noted in the lower lobe There is no discrete consolidative processes to indicate active infection. Heart size normal. The central airways are patent. Tracheostomy is in satisfactory position. Great vessels are normal. Chronic right pleural thickening. No pneumothorax or left-sided pleural effusion. Limited visualization of upper abdominal contents is unremarkable for an acute process. A gastrostomy tube is noted within the stomach. No destructive osseous lesions. IMPRESSION: 1. Chronic diffuse opacification and bronchiectasis throughout the right lung, unchanged. 2. Scattered left lung atelectasis/scar, most pronounced at the base of the left lower lobe. 3. Minimal left lower lobe centrilobular nodularity, nonspecific. Could represent low-grade infection or small volume aspiration. Electronically signed by: Rey Donato MD 05/01/2020 1:29 AM CDT
[2020-05-01] MEDS ORDERED: cefTRIAXone SODIUM 1 GM in SODIUM CHL 0.9% 50ML MIN-BAG+ 50 ML IVPB ONE (01:35)
[2020-05-01] MEDS ORDERED: CLINDAMYCIN IV 600MG 600 MG in PREMIX BAG 1 BAG IVPB ONE (01:35)
[2020-05-01 03:09] VITALS: O2SAT 98
[2020-05-01 03:11] VITALS: BP 106/68; TEMP 98.3
== END 2020-05-01 03:12 ==
LOC: ER 23:29
DX: T17.908A Unspecified foreign body in respiratory tract, part unspecified causing other injury, initial encounter (principal); J95.00 Unspecified tracheostomy complication; D64.9 Anemia, unspecified; T83.511A Infection and inflammatory reaction due to indwelling urethral catheter, initial encounter; G12.21 Amyotrophic lateral sclerosis; E87.6 Hypokalemia; E87.1 Hypo-osmolality and hyponatremia; I10 Essential (primary) hypertension; K21.9 Gastro-esophageal reflux disease without esophagitis; Z20.828 Contact with and (suspected) exposure to other viral communicable diseases; Z87.01 Personal history of pneumonia (recurrent); Z79.899 Other long term (current) drug therapy; Y84.6 Urinary catheterization as the cause of abnormal reaction of the patient, or of later complication, without mention of misadventure at the time of the procedure; Y82.8 Other medical devices associated with adverse incidents
CPT/HCPCS: 71045; 71250; 80053; 81001; 83880; 85025; 85610; 85730; 87086; 87486; 87581; 87633; 87635; 93005; 94002; J0696; J2270; J3490; J7030; J7050

== ENCOUNTER → 2020-08-01 | Outpatient (CLI) | payer MEDICARE, MEDICAID | LOC: GOCC 17:02 | PROVIDERS: ATTEND Internal Medicine | DX: R82.90 Unspecified abnormal findings in urine (principal); N39.0 Urinary tract infection, site not specified ==

== ENCOUNTER 2020-09-24 22:12 | Emergency (ER) | payer MEDICARE, MEDICAID ==
[2020-09-24] MEDS ORDERED: LABETALOL INJ 5 MG/ML VIAL ONE (22:25)
[2020-09-24] MEDS ORDERED: ACETAMINOPHEN 500 MG TAB ONE (22:30)
[2020-09-24] MEDS ORDERED: cefTRIAXone SODIUM 2 GM in SODIUM CHL 0.9% 100ML MINI-BAG 100 ML IVPB ONE (22:31)
[2020-09-24] MEDS ORDERED: SODIUM CHLORIDE 0.9% (FLUSH) 10 ML SYG IV PRN (22:31)
[2020-09-24] MEDS ORDERED: SODIUM CHLORIDE 0.9% 1000ML 1,000 ML IVS ONE ×4 (22:31→23:41)
[2020-09-24] MEDS ORDERED: LABETALOL INJ 5 MG/ML VIAL IV ONE ×2 (22:34→22:48)
[2020-09-24] MEDS ORDERED: CEFEPIME 1 GM in SODIUM CHLORIDE 0.9% 50ML 50 ML IVPB ONE (22:46)
[2020-09-24] MEDS ORDERED: SODIUM CHLORIDE 0.9% 1000ML 1,000 ML ONE (23:06)
--- NOTE | 2020-09-24 23:14 | RAD ---
EXAM DESCRIPTION: Chest,1 View CLINICAL HISTORY: 54 years Male, hypertension COMPARISON: 05/01/20 TECHNIQUE: Single AP chest radiograph. FINDINGS: Complete opacification of the right hemithorax, unchanged. Scattered left basilar opacities. Nodular left perihilar opacity. No pneumothorax. Query left pleural effusion. Tracheostomy tube in satisfactory position obscured cardiomediastinal contour. IMPRESSION: 1. Complete opacification of the right hemithorax, unchanged. 2. Scattered left lung opacities, nonspecific for aspiration or infection. 3. Consider CT for further evaluation. Electronically signed by: Rey Donato MD 09/24/2020 11:12 PM [facility]
--- NOTE | 2020-09-24 23:29 | ED.PDOC ---
History of Present Illness - General Chief Complaint: General Stated Complaint: Tachycardia Time Seen by Provider: 09/24/20 22:22 Source: EMS notes reviewed, family Additional Information: The patient is a 54-year-old male with ALS , and tracheotomy who [facility] emergency department [facility]. As per nursing reports the patient had a heart rate in the 200s.At presentation to the emergency department he has a heart rate in the 200s and blood pressure systolic in the 200s. As per the patient's at bedsideHe has had decreased urinary frequency in the last 2 days, pneumonia. She states that he has also had change in baseline mentation and has been extremely weak for the last 2 to 3 days. - History of Present Illness Timing/Duration: days - 3 Severity: moderate Location: other Activities at Onset: rest Prior Chest Pain/Cardiac Workup: other - unknown Improving Factors: nothing Worsening Factors: nothing Nitro Today/Relief: no nitro taken today Aspirin Treatment Today: unknown Associated Symptoms: weakness Allergies/Adverse Reactions: Allergies Acetaminophen [From Tylenol] Allergy (Verified 12/10/19 16:25) Albuterol Allergy (Verified 12/10/19 16:25) Bee Venom Allergy (Verified 02/07/20 20:25) Lidocaine Allergy (Verified 12/10/19 16:25) Home Medications: Ambulatory Orders Bisacodyl 10 mg [place] DAILY PRN 12/09/15 Cyanocobalamin [Vitamin B-12 Cr] 1,000 mcg GT DAILY 12/09/15 Escitalopram Oxalate 10 mg GT DAILY 12/09/15 Ferrous Sulfate [Ferosul] 220 mg GT DAILY 12/09/15 Folic Acid 1 mg PEG DAILY 12/09/15 Gabapentin 7.5 ml GT Q8H 12/09/15 Guaifenesin 100 mg GT Q4H 12/09/15 Polyethylene Glycol 3350 [Miralax] 17 gm GT DAILY 12/09/15 Riluzole 50 mg GT BID 12/09/15 Scopolamine Patch 1.5MG [Transderm-Scop Patch] 1 ea TD Q72H 12/09/15 Simethicone 80 mg GT QID 12/09/15 Tramadol HCl 100 mg GT Q4H PRN 12/09/15 Uti-Stat 30 ml GT BID 12/09/15 Alum & Mag Hydrox-Simethicone [Antacid Extra Strength An] 30 ml PEG TID PRN 01/05/18 Diphenhydramine HCl 25 mg GT Q6H PRN 08/06/17 Glycopyrrolate 2 mg GT Q6H 08/06/17 Ipratropium [place] 2.5 ml INH QID 08/06/17 Potassium Chloride Elixir [Kaochlor Liquid] 10 meq GT DAILY 08/06/17 Metoclopramide HCl [Metoclopramide Hydrochlor] 20 mg PEG Q8H 10/27/17 Ondansetron [Zofran Odt] 4 mg PO Q6H PRN 10/27/17 Allopurinol [Zyloprim] 100 mg PEG DAILY 03/27/18 Calcium Carbonate-Cholecalcife [Calcium 600+D3 600-400 mg-Unit] 1 tab PEG DAILY 03/27/18 Ibuprofen [Motrin Ib] 200 mg GT Q8H PRN 03/27/18 Meloxicam [Mobic] 7.5 mg GT DAILY 03/27/18 White Petrolatum-Mineral Oil [Lacri-Lube S.o.p] 1 oin OP QID PRN 03/27/18 Lactobacillus [Acidophilus] 1 cap PEG TID 02/27/19 Cefdinir 300 mg PO BID #14 capsule 05/01/20 Clindamycin HCl [Clindamycin Hydrochloride] 450 mg PO TID #21 cap 05/01/20 Review of Systems - Review of Systems Constitutional: States: chills, fever EENTM: Denies: tearing, nose pain, nose congestion Unable to Obtain Due To: clinical condition Past Medical History (General) - Patient Medical History Hx Seizures: No Hx Stroke: No Hx Dementia: No Hx Asthma: No Hx of COPD: No Hx Cardiac Disorders: No Hx Congestive Heart Failure: No Hx Pacemaker: No Hx Hypertension: Yes Hx Thyroid Disease: No Hx Diabetes: No Hx Gastroesophageal Reflux: Yes Hx Renal Disease: No Hx Cancer: No Hx of HIV: No Hx Hepatitis C: No Hx MRSA: Yes - Sputum 2014 MRSA Source:: Sputum - Vaccination History Hx Tetanus, Diphtheria Vaccination: No Hx Influenza Vaccination: No Hx Pneumococcal Vaccination: Yes - Social History Hx Tobacco Use: No Hx Chewing Tobacco Use: No Hx Alcohol Use: No Hx Substance Use: No Hx Substance Use Treatment: No Hx Depression: No Hx Physical Abuse: No Hx Emotional Abuse: No Hx Suspected Abuse: No - Female History Patient : No Family Medical History - Family History Mother Family History: No Known Living Status: Still Living Physical Exam - Physical Exam General Appearance: Lethargic, Ill Appearing Eyes, Ears, Nose, Throat Exam: normal ENT inspection Neck: non-tender, other - no jvd Respiratory: chest non-tender, no respiratory distress, no accessory muscle use, decreased breath sounds Cardiovascular/Chest: no edema, no JVD, tachycardia Peripheral Pulses: radial,right: 2+, radial,left: 2+ Gastrointestinal/Abdominal: normal bowel sounds, non tender, soft, no organomegaly Rectal Exam: normal exam, normal rectal tone Extremity: normal range of motion, non-tender, normal inspection Neurologic: senior mechanical technician II-XII nml as tested, no motor/sensory deficits, alert, normal mood/affect Skin Exam: normal color, warm/dry Progress - Progress Progress: The patient is a 54-year-old male with ALS that presents to the emergency department with a heart rate in the 200s on classroom monitor and blood pressure in the systolic 200s. He is given 10 of labetalol and his blood pressure improved heart rate improves. He is also given some Tylenol for fever. The patient start on IV fluid antibiotics,His blood pressure starts to drop central right down to the systolic 60s improved to systolic 90s. Levophed is ordered but has not been started. Decision for transfer to [facility]. Dr. Quarles accepted the patient - EKG/XRAY/CT EKG: Sinus, Tachy, no ST T wave changes Comments: hr 136, pvcs, pacs Departure - Departure Clinical Impression: Septic shock, UTI (urinary tract infection), Pneumonia Disposition: Transfer to Hospital Departure Forms: ED Discharge - Pt. Copy, Patient Portal Self Enrollment Referrals: CARLO GOODWIN [Primary Care Provider] - 1-2 Weeks Home Medications: Ambulatory Orders Bisacodyl 10 mg [place] DAILY PRN 12/09/15 Cyanocobalamin [Vitamin B-12 Cr] 1,000 mcg GT DAILY 12/09/15 Escitalopram Oxalate 10 mg GT DAILY 12/09/15 Ferrous Sulfate [Ferosul] 220 mg GT DAILY 12/09/15 Folic Acid 1 mg PEG DAILY 12/09/15 Gabapentin 7.5 ml GT Q8H 12/09/15 Guaifenesin 100 mg GT Q4H 05/09/16 Polyethylene Glycol 3350 [Miralax] 17 gm GT DAILY 12/09/15 Riluzole 50 mg GT BID 12/09/15 Scopolamine Patch 1.5MG [Transderm-Scop Patch] 1 ea TD Q72H 12/09/15 Simethicone 80 mg GT QID 12/09/15 Tramadol HCl 100 mg GT Q4H PRN 12/09/15 Uti-Stat 30 ml GT BID 12/09/15 Alum & Mag Hydrox-Simethicone [Antacid Extra Strength An] 30 ml PEG TID PRN 08/06/17 Diphenhydramine HCl 25 mg GT Q6H PRN 08/06/17 Glycopyrrolate 2 mg GT Q6H 08/06/17 Ipratropium [place] 2.5 ml INH QID 08/06/17 Potassium Chloride Elixir [Kaochlor Liquid] 10 meq GT DAILY 08/06/17 Metoclopramide HCl [Metoclopramide Hydrochlor] 20 mg PEG Q8H 10/27/17 Ondansetron [Zofran Odt] 4 mg PO Q6H PRN 10/27/17 Allopurinol [Zyloprim] 100 mg PEG DAILY 03/27/18 Calcium Carbonate-Cholecalcife [Calcium 600+D3 600-400 mg-Unit] 1 tab PEG DAILY 03/27/18 Ibuprofen [Motrin Ib] 200 mg GT Q8H PRN 03/27/18 Meloxicam [Mobic] 7.5 mg GT DAILY 03/27/18 White Petrolatum-Mineral Oil [Lacri-Lube S.o.p] 1 oin OP QID PRN 03/27/18 Lactobacillus [Acidophilus] 1 cap PEG TID 02/27/19 Cefdinir 300 mg PO BID #14 capsule 05/01/20 Clindamycin HCl [Clindamycin Hydrochloride] 450 mg PO TID #21 cap 05/01/20 Additional Instructions: Patient's at bedside she is informed about the critical illness and the patient's prognosis given his chronic comorbidities. She is informed the patient's condition remains guarded at this time. She verbalized understanding. Patient's states the patient is a full code . Critical Care Note - Critical Care Note Total Time (mins): 30
[2020-09-24] MEDS ORDERED: NOREPINEPHRINE BITARTRATE 4 MG in DEXTROSE 5% 250ML 250 ML IVPB SCH (23:45)
[2020-09-24] MEDS ORDERED: DEXTROSE 5% 250ML 250 ML ONE (23:46)
[2020-09-24] MEDS ORDERED: NOREPINEPHRINE BITARTRATE 4 MG/4 ML VIAL IVPB ONE (23:46)
[2020-09-25] MEDS ORDERED: ACETAMINOPHEN 500 MG TAB GT ONE (00:30)
[2020-09-25 00:43] VITALS: BP 99/58; TEMP 99.8; O2SAT 97
== END 2020-09-25 00:16 | disposition short-term general hospital (02) ==
LOC: ER 22:12
DX: A41.9 Sepsis, unspecified organism (principal); R65.21 Severe sepsis with septic shock; J18.9 Pneumonia, unspecified organism; N39.0 Urinary tract infection, site not specified; R00.0 Tachycardia, unspecified; I49.1 Atrial premature depolarization; I49.3 Ventricular premature depolarization; G12.21 Amyotrophic lateral sclerosis; K21.9 Gastro-esophageal reflux disease without esophagitis; I10 Essential (primary) hypertension; Z20.822 Contact with and (suspected) exposure to COVID-19; Z93.0 Tracheostomy status; Z86.14 Personal history of Methicillin resistant Staphylococcus aureus infection; Z79.899 Other long term (current) drug therapy; Z88.6 Allergy status to analgesic agent; Z88.8 Allergy status to other drugs, medicaments and biological substances
CPT/HCPCS: 36415; 71045; 80053; 81001; 82550; 82553; 83605; 84484; 85025; 85379; 85610; 85730; 87040; 87086; 87635; 93005; 94002; J0696; J7030; J7050; J7060